=== PATIENT | female | born 1955 | race Caucasian/White ===

== ENCOUNTER 2020-08-07 06:47 | Outpatient (REF) | payer MEDICARE, SELFPAY ==
[2020-08-07 12:03] LABS: Alanine Aminotransferase 23 U/L (0-31); Albumin Level 4.5 g/dL (3.5-5.0); Alkaline Phosphatase 96 U/L (39-117); Anion Gap 15 (12-20); Aspartate Amino Transferase 17 U/L (5-31); Blood Urea Nitrogen 10 mg/dL (9-16); Calcium 9.1 mg/dL (8.4-10.2); Carbon Dioxide 30 mmol/L (22-29); Chloride 100 mmol/L (96-108); Cholesterol 196 mg/dL; Estimated Glomerular Filt Rate > 60; Glucose Fasting 87 mg/dL (60-99); HDL Cholesterol 54 mg/dL; LDL Cholesterol Calculated 114 mg/dl; Potassium 3.8 mmol/L (3.3-5.1); Sodium 141 mmol/L (135-145); Total Protein 7.1 g/dL (6.5-8.0); Triglycerides 144 mg/dL
[2020-08-07 12:24] LABS: Thyroid Stimulating Hormone 3.05 uIU/mL (0.32-4.0); Vitamin D 25-OH Total 50.6 ng/mL (>30)
== END 2020-08-07 06:48 | disposition home or self-care (01) ==
LOC: HO.HMGCLDS 06:47
PROVIDERS: PCP Internal Medicine; Visit Provider Internal Medicine
DX: E03.9 Hypothyroidism, unspecified (principal); E78.00 Pure hypercholesterolemia, unspecified; I10 Essential (primary) hypertension; M85.88 Other specified disorders of bone density and structure, other site; Z78.0 Asymptomatic menopausal state
CPT/HCPCS: 36415; 80053; 80061; 82306; 84439; 84443

== ENCOUNTER 2020-11-07 07:12 | Outpatient (REF) | payer MEDICARE, SELFPAY ==
[2020-11-07 12:20] LABS: Anion Gap 15 (12-20); Aspartate Amino Transferase 17 U/L (5-31); Blood Urea Nitrogen 10 mg/dL (9-16); Calcium 9.4 mg/dL (8.4-10.2); Carbon Dioxide 30 mmol/L (22-29); Chloride 99 mmol/L (96-108); Cholesterol 185 mg/dL; Estimated Glomerular Filt Rate > 60; Glucose Fasting 92 mg/dL (60-99); HDL Cholesterol 54 mg/dL; LDL Cholesterol Calculated 106 mg/dl; Potassium 3.9 mmol/L (3.3-5.1); Sodium 140 mmol/L (135-145); Triglycerides 129 mg/dL
[2020-11-07 12:23] LABS: Free T4 (Free Thyroxine) 1.28 ng/dL (0.71-1.85)
== END 2020-11-07 07:13 | disposition home or self-care (01) ==
LOC: HO.HMGCLDS 07:12
PROVIDERS: PCP Internal Medicine; Visit Provider Internal Medicine
DX: M85.88 Other specified disorders of bone density and structure, other site (principal); E78.5 Hyperlipidemia, unspecified; E03.9 Hypothyroidism, unspecified; I10 Essential (primary) hypertension; Z78.0 Asymptomatic menopausal state
CPT/HCPCS: 36415; 80048; 80061; 82306; 84439; 84443; 84450

== ENCOUNTER 2021-02-13 06:48 | Outpatient (REF) | payer MEDICARE, SELFPAY ==
[2021-02-13 11:34] LABS: MANUAL DIFF FLAG NO
[2021-02-13 11:43] LABS: Basophils Absolute Auto 0.1 X10*3/uL (0.0-0.2); Basophils Percent Auto 0.9 % (0-2); Eosinophils Absolute Auto 0.2 X10*3/uL (0.0-0.4); Eosinophils Percent Auto 1.9 % (0-4); Hematocrit 44.5 % (37-47); Hemoglobin 15.1 g/dl (12.0-16.0); Imm Gran Abs Auto 0.03 X10*3/uL (0.00-0.03); Imm Gran Pct Auto 0.3 % (0.0-0.4); Lymphocytes Absolute Auto 1.8 X10*3/uL (1.2-4.9); Lymphocytes Percent Auto 19.8 % (20-40); Mean Corpuscular HGB Conc 33.9 g/dl (31.0-35.0); Mean Corpuscular Hemoglobin 29.7 pg (27.0-33.0); Mean Corpuscular Volume 87.4 fL (80-98); Mean Platelet Volume 10.2 fL (9.4-12.3); Monocytes Absolute Auto 0.7 X10*3/uL (0.1-1.2); Monocytes Percent Auto 7.2 % (2-11); Neutrophils Absolute Auto 6.4 X10*3/uL (2.0-8.3); Neutrophils Percent Auto 69.9 % (45-73); Platelet Count 321 X10*3/uL (160-400); Red Blood Count 5.09 X10*6/uL (4.20-5.50); Red Cell Distribution Width 12.8 % (11.0-16.0); White Blood Count 9.1 X10*3/uL (4.8-10.8)
[2021-02-13 12:26] LABS: Free T4 (Free Thyroxine) 1.23 ng/dL (0.71-1.85); Thyroid Stimulating Hormone 2.95 uIU/mL (0.32-4.0); Vitamin D 25-OH Total 52.8 ng/mL (>30)
[2021-02-13 12:32] LABS: Alanine Aminotransferase 15 U/L (0-31); Anion Gap 17 (12-20); Aspartate Amino Transferase 16 U/L (5-31); Blood Urea Nitrogen 8 mg/dL (9-16); Calcium 9.3 mg/dL (8.4-10.2); Carbon Dioxide 25 mmol/L (22-29); Chloride 101 mmol/L (96-108); Cholesterol 172 mg/dL; Estimated Glomerular Filt Rate > 60; Glucose Fasting 103 mg/dL (60-99); HDL Cholesterol 43 mg/dL; LDL Cholesterol Calculated 102 mg/dl; Potassium 3.6 mmol/L (3.3-5.1); Sodium 139 mmol/L (135-145); Triglycerides 137 mg/dL
== END 2021-02-13 06:49 | disposition home or self-care (01) ==
LOC: HO.HMGCLDS 06:48
PROVIDERS: PCP Internal Medicine; Visit Provider Internal Medicine
DX: E03.9 Hypothyroidism, unspecified (principal); E78.5 Hyperlipidemia, unspecified; I10 Essential (primary) hypertension; M85.88 Other specified disorders of bone density and structure, other site; Z78.0 Asymptomatic menopausal state; D12.6 Benign neoplasm of colon, unspecified; E78.00 Pure hypercholesterolemia, unspecified
CPT/HCPCS: 36415; 80048; 80061; 82306; 84439; 84443; 84450; 84460; 85025

== ENCOUNTER 2021-06-27 13:49 | Outpatient (REF) | payer MEDICARE, SELFPAY ==
--- NOTE | ~2021-06-27 | US_ITS ---
EXAMINATION: US PELVIS CLINICAL INFORMATION: Postmenopausal bleeding COMPARISON: None TECHNIQUE: Ultrasound of the pelvis is performed using both transabdominal and transvaginal transducers along with Doppler. Transvaginal imaging is performed due to inadequate visualization transabdominally. FINDINGS: The uterus is anteverted and measures 6.2 x 2.9 x 3.5 cm in dimension. No focal uterine lesion is seen. The endometrium is thickened and heterogeneous. Endometrial thickness measures up to 2 cm. There are nabothian cysts in the cervix. The right ovary is not seen. The left ovary is enlarged and measures 5.8 x 3.9 x 4.1 cm. There is a 5.4 x 3.6 x 8.5 cm simple left ovarian cyst. There is no fluid in the pelvis. US/US pelvic and transvaginal IMPRESSION: Abnormally thickened endometrium for a postmenopausal patient measuring 2 cm. 5.4 x 3.6 x 3.5 cm simple left ovarian cyst. Neoplastic process should be considered. [employer] consultation recommended. The right ovary is not seen. Findings will be communicated by the [place] work flow printer slotter helper Noa Meier.
== END 2021-06-27 13:50 | disposition home or self-care (01) ==
LOC: HO.HMGCX 13:49
PROVIDERS: Visit Provider Internal Medicine
DX: N95.0 Postmenopausal bleeding (principal)
CPT/HCPCS: 76830; 76856

== ENCOUNTER → 2021-07-17 08:03 | Outpatient (BNVA) | payer MEDICARE, SELFPAY | PROVIDERS: PCP Internal Medicine; Visit Provider Obstetrics & Gynecology | DX: N95.0 Postmenopausal bleeding (principal); N83.292 Other ovarian cyst, left side | CPT/HCPCS: 99202 ==

== ENCOUNTER 2021-07-27 11:41 | Day surgery (SDC) | payer MEDICARE, SELFPAY ==
[2021-07-19 05:31] LABS: CA-125 28 U/mL (<35)
--- NOTE | 2021-07-26 11:57 | HO.ANESPROP2 ---
Documented by User: Moni Maki NP 07/26/21 11:58 HPI - Anesthesia Eval Consult details Narrative: 65yo F for D&C Hysteroscopy,possible polypectomy, possible myomectomy PMFSH Active Problems Active Problems: All Active Problems (Updated 07/17/21 @ 08:11 by Leno Ventura MD) Ovarian cyst (Acute) Postmenopausal bleeding (Acute) Dermatitis (Acute) Menopause (Acute) Tubular adenoma of colon (Acute) Osteopenia of lumbar spine (Acute) Hyperlipidemia (Acute) Hypothyroidism (Acute) Hypertension (Acute) Past Medical History Medical History Hyperlipidemia Hypertension Hypothyroidism Menopause Osteoarthritis, knee Osteopenia of lumbar spine Postmenopausal bleeding Tubular adenoma of colon Family History Family History Father No problems noted. Mother Diabetes mellitus Surgical History Surgical History H/O arthroscopic knee surgery H/O arthroscopy of left knee H/O arthroscopy of right knee H/O blepharoplasty History of total knee arthroplasty Social History Social History Housing: House Alcohol intake: never Patient Tobacco Use Status: Never used Tobacco Use of substances other than those prescribed or required for medical reasons: No Are you DNR?: No Advance Directives: No Advance Directives Information Provided: Yes Current occupational status: retired Meds Allergies Allergy/AdvReac Type Severity Reaction Status Date / Time No Known Allergies Allergy Verified 07/17/21 08:08 [No Known Allergies*] Home Medications Medication Instructions Recorded Confirmed Last Taken Type biotin 1 mg capsule 1 mg PO DAILY 03/14/20 06/28/21 Unknown History cholecalciferol (vitamin D3) 50 50 mcg PO DAILY 03/14/20 06/28/21 Unknown History mcg (2,000 unit) capsule flu vacc [id number](65yr up)-PF 240 ml IM 06/14/20 06/28/21 Unknown History mcg/0.7 mL intramuscular syringe ascorbate calcium (vitamin C) 500 500 mg PO DAILY 08/16/20 06/28/21 Unknown History mg tablet multivitamin 1 tab PO DAILY 08/16/20 06/28/21 Unknown History omega-3 fatty acids 1,000 mg 1,000 mg PO DAILY 08/16/20 06/28/21 Unknown History capsule (Fish Oil Concentrate) levothyroxine 88 mcg tablet 88 mcg PO QAM tab 06/27/21 06/28/21 Unknown History Exam Exam Date and Time: July 26, 2021 1157 Pertinent Lab Results Pertinent Lab Results: Laboratory Tests 07/17/21 09:42 CA 125 Antigen 28 Laboratory Tests 02/13/21 02/13/21 06:58 06:58 WBC 9.1 Hgb 15.1 Hct 44.5 Plt Count 321 Sodium 139 Potassium 3.6 Chloride 101 Carbon Dioxide 25 BUN 8 L Creatinine 0.70 Assessment and Plan Assessment Anesthesia Assessment: Chart Reviewed Documented by User: Lisette Morocho MD 07/27/21 13:00 [facility], [facility] Past Medical History Medical History Hyperlipidemia Hypertension Hypothyroidism Menopause Osteoarthritis, knee Osteopenia of lumbar spine Postmenopausal bleeding Tubular adenoma of colon Family History Family History Father No problems noted. Mother Diabetes mellitus Family history of problems with anesthesia: No Surgical History Surgical History H/O arthroscopic knee surgery H/O arthroscopy of left knee H/O arthroscopy of right knee H/O blepharoplasty History of total knee arthroplasty History of Problems with Anesthesia: No Social History Social History Housing: House Alcohol intake: never Patient Tobacco Use Status: Never used Tobacco Use of substances other than those prescribed or required for medical reasons: No Are you DNR?: No Advance Directives: No Advance Directives Information Provided: Yes Current occupational status: retired Meds Allergies Allergy/AdvReac Type Severity Reaction Status Date / Time No Known Allergies Allergy Verified 07/17/21 08:08 [No Known Allergies*] Home Medications Medication Instructions Recorded Confirmed Last Taken Type biotin 1 mg capsule 1 mg PO DAILY 03/14/20 06/28/21 Unknown History cholecalciferol (vitamin D3) 50 50 mcg PO DAILY 03/14/20 06/28/21 Unknown History mcg (2,000 unit) capsule flu vacc [id number](65yr up)-PF 240 ml IM 06/14/20 06/28/21 Unknown History mcg/0.7 mL intramuscular syringe ascorbate calcium (vitamin C) 500 500 mg PO DAILY 08/16/20 06/28/21 Unknown History mg tablet multivitamin 1 tab PO DAILY 08/16/20 06/28/21 Unknown History omega-3 fatty acids 1,000 mg 1,000 mg PO DAILY 08/16/20 06/28/21 Unknown History capsule (Fish Oil Concentrate) levothyroxine 88 mcg tablet 88 mcg PO QAM tab 06/27/21 06/28/21 Unknown History Exam Airway Mallampati Class: II TM Dist: >3cm Neck ROM: Full Assessment and Plan Assessment Anesthesia Assessment: Anesthesia Plan Discussed Final Anesthetic Review Family History of Problems with Anesthesia: No History of Problems with Anesthesia: No NPO: Yes ASA Class: II Final Preanesthetic Review: No Changes in Pt Med Stat, Meds/Allgs Chart Reviewed, Consent Obtained/Reviewed and Anes Risks/Benef Reviewed Patient Risk: Intermediate Procedure Risk: Low Anesthetic Plan Anesthetic Plan: GA Disposition: Standard PACU
[2021-07-27] VITALS (7 sets, daily range): BP systolic 137–171; BP diastolic 63–88; PULSE 70–78; RESP 16–20; TEMP 36.8–37.2; O2SAT 96–99; BMI 33.6
--- NOTE | 2021-07-27 12:20 | MHC.SHP ---
Pre-Procedural Eval Section A Date of Service: 07/27/21 The patient is an INPATIENT: No Changes since office visit: No Cold of Flu in the past 2 weeks, No New Medical Problems, No Changes in Medication and No Patient answered all questions The History & Physical has been completed within 30 days and I have reviewed it.: Yes Section B Chief Complaint: bleeding Allergies: Allergies Allergy/AdvReac Type Severity Reaction Status Date / Time No Known Allergies Allergy Verified 07/17/21 08:08 [No Known Allergies*] Plan Diagnosis/Plan: Unchanged I have reviewed the history and physical and performed a pertinent physical examination on my patient. No changes have occurred unless specified.
[2021-07-27] MEDS: Lactated Ringers 1,000 ML 100 ML IVCONT (12:40)
--- NOTE | 2021-07-27 14:04 | P.BOP_ITS ---
Brief Operative Note Date of Service: 07/27/21 Pre-op diagnosis: Postmenopausal bleeding and 2 cm endometrial thickness by ultrasound Post-op diagnosis: same (Thickened hypervascular endometrial tissues) Procedure: Hysteroscopy D&C Surgeon: Leno Ventura MD Anesthesia: MAC Was an High Density Finishing Operator used for this Procedure?: No Estimated blood loss (mL): 0 Pathology: other (Endometrial Scrapping.) Condition: stable Disposition: PACU
--- NOTE | 2021-07-27 14:05 | W.PM.OPN ---
Operative Note Operative Note Date of Service: 07/27/21 Narrative: Preop Diagnosis: Post Menopausal bleeding Operation: Diagnostic Hysteroscopy, Dilataion & Curettage Post Op Diagnosis: The same plus thickened hypervascular looking endometrial tissues QBL: Minimal Anesthesia: MAC Surgeon: Leno Ventura MD Slot Operations Director: None Complication: None Pathology: Endometrial Scrapings Procedure: The patient was put in the dorsal lithotomy position, scrubbed, and draped in the usual manner. A sterile speculum was inserted in the patient's vagina. The anterior lip of the cervix was grasped with a single tooth tenaculum. The cervix was dilated up to 5 mm, then the scope was inserted in the patient's uterus. Inspection revealed thickened hypervascular endometrial tissues. The Myosure Reach device was used; endometrial scrapings was carried on with moderate amount of tissues retrieved. At the end of the procedure, all instruments were taken out of the patient uterine and vaginal cavity. The single tooth tenaculum was removed and homeostasis was assured using pressure,. The patient tolerated the procedure well and was transferred to the PACU in a stable condition.
== END 2021-07-27 15:30 | disposition home or self-care (01) ==
PROVIDERS: PCP Internal Medicine; Visit Provider Obstetrics & Gynecology
PROC: 0UDB8ZZ Extraction of Endometrium, Via Natural or Artificial Opening Endoscopic (ICD-10-PCS; CPT 58558; principal; 2021-07-27 13:30)
DX: N95.0 Postmenopausal bleeding (principal); C54.1 Malignant neoplasm of endometrium; N83.209 Unspecified ovarian cyst, unspecified side
CPT/HCPCS: 58558; 36415; 86304; 88305; 88341; 88342; J1100; J2250; J2405; J3010

== ENCOUNTER → 2021-08-02 15:12 | Outpatient (BNVA) | payer MEDICARE, SELFPAY | PROVIDERS: Visit Provider Obstetrics & Gynecology | DX: C54.1 Malignant neoplasm of endometrium (principal); Z98.890 Other specified postprocedural states | CPT/HCPCS: 99212 ==

== ENCOUNTER 2021-08-20 06:35 | Outpatient (REF) | payer MEDICARE, SELFPAY ==
[2021-08-20 12:23] LABS: Alanine Aminotransferase 22 U/L (0-31); Anion Gap 16 (12-20); Aspartate Amino Transferase 16 U/L (5-31); Blood Urea Nitrogen 10 mg/dL (9-16); Calcium 9.2 mg/dL (8.4-10.2); Carbon Dioxide 29 mmol/L (22-29); Chloride 96 mmol/L (96-108); Cholesterol 184 mg/dL; Estimated Glomerular Filt Rate > 60; Glucose Fasting 107 mg/dL (60-99); HDL Cholesterol 50 mg/dL; LDL Cholesterol Calculated 113 mg/dl; Potassium 3.5 mmol/L (3.3-5.1); Sodium 137 mmol/L (135-145); Triglycerides 105 mg/dL
[2021-08-20 12:28] LABS: Free T4 (Free Thyroxine) 1.51 ng/dL (0.71-1.85); Thyroid Stimulating Hormone 1.91 uIU/mL (0.32-4.0); Vitamin D 25-OH Total 52.5 ng/mL (>30)
== END 2021-08-20 06:36 | disposition home or self-care (01) ==
LOC: HO.HMGCLDS 06:35
PROVIDERS: Visit Provider Internal Medicine
DX: E03.9 Hypothyroidism, unspecified (principal); E78.00 Pure hypercholesterolemia, unspecified; I10 Essential (primary) hypertension; Z78.0 Asymptomatic menopausal state
CPT/HCPCS: 36415; 80048; 80061; 82306; 84439; 84443; 84450; 84460

== ENCOUNTER 2022-06-17 06:39 | Outpatient (REF) | payer MEDICARE, SELFPAY ==
[2022-06-17 11:20] LABS: MANUAL DIFF FLAG NO
[2022-06-17 11:28] LABS: Basophils Percent Auto 0.6 % (0-2); Eosinophils Absolute Auto 0.2 X10*3/uL (0.0-0.4); Eosinophils Percent Auto 3.7 % (0-4); Hematocrit 37.8 % (37.0-47.0); Hemoglobin 13.2 g/dl (12.0-16.0); Imm Gran Abs Auto 0.01 X10*3/uL (0.00-0.03); Imm Gran Pct Auto 0.2 % (0.0-0.4); Lymphocytes Percent Auto 15.5 % (20-40); Mean Corpuscular HGB Conc 34.9 g/dl (31.0-35.0); Mean Corpuscular Hemoglobin 32.4 pg (27.0-33.0); Mean Corpuscular Volume 92.6 fL (80.0-98.0); Mean Platelet Volume 9.6 fL (9.4-12.3); Monocytes Absolute Auto 0.5 X10*3/uL (0.1-1.2); Monocytes Percent Auto 7.5 % (2-11); Neutrophils Absolute Auto 4.5 x10*3/uL (2.0-8.3); Neutrophils Percent Auto 72.5 % (45-73); Platelet Count 270 X10*3/uL (160-400); Red Blood Count 4.08 X10*6/uL (4.20-5.50); Red Cell Distribution Width 13.2 % (11.0-16.0); White Blood Count 6.3 X10*3/uL (4.8-10.8)
[2022-06-17 12:00] LABS: Alanine Aminotransferase 25 U/L (0-31); Anion Gap 16 (12-20); Aspartate Amino Transferase 19 U/L (5-31); Blood Urea Nitrogen 14 mg/dL (9-16); Calcium 9.4 mg/dL (8.4-10.2); Carbon Dioxide 30 mmol/L (22-29); Chloride 97 mmol/L (96-108); Cholesterol 185 mg/dL; Estimated Glomerular Filt Rate > 60; Glucose Fasting 105 mg/dL (60-99); HDL Cholesterol 50 mg/dL; LDL Cholesterol Calculated 107 mg/dl; Sodium 140 mmol/L (135-145); Triglycerides 141 mg/dL
[2022-06-17 12:31] LABS: Free T4 (Free Thyroxine) 1.26 ng/dL (0.71-1.85); Thyroid Stimulating Hormone 1.91 uIU/mL (0.32-4.0); Vitamin D 25-OH Total 38.4 ng/mL (>30)
== END 2022-06-17 06:40 | disposition home or self-care (01) ==
LOC: HO.HMGCLDS 06:39
PROVIDERS: PCP Internal Medicine; Visit Provider Internal Medicine
DX: E03.9 Hypothyroidism, unspecified (principal); E78.00 Pure hypercholesterolemia, unspecified; I10 Essential (primary) hypertension; M85.88 Other specified disorders of bone density and structure, other site; Z78.0 Asymptomatic menopausal state
CPT/HCPCS: 36415; 80048; 80061; 82306; 84439; 84443; 84450; 84460; 85025

== ENCOUNTER 2022-11-19 10:13 | Outpatient (REF) | payer MEDICARE, SELFPAY ==
--- NOTE | ~2022-11-19 | XR_ITS ---
Examination: Lumbar spine. Sacrum/coccyx. CLINICAL INDICATION: Low back pain x6 weeks. COMPARISON: None. TECHNIQUE: Lumbar spine 3 views. Sacrum/coccyx 3 views. FINDINGS: LUMBAR SPINE: There is normal lumbar lordosis. There is grade 1 anterolisthesis L4 over L5 and L5 over S1. There is severe loss of L3 L5-S1 disc height. Bilateral L5 laminectomy suspected. There is moderate hypertrophic facet joint changes at L3-L4, L4-L5 and L5/S1 disc levels. No acute fracture or lytic process seen. SACRUM AND/OR COCCYX: The SI joints are symmetrical and normal. There is no bony abnormality involving the sacrum or coccyx. The presacral soft tissues are normal. XR/XR sacrum coccyx min 2V IMPRESSION: Grade 1 anterolisthesis L4-L5 and L5-S1. Severe degenerative disc changes L5-S1 disc level. No visible acute fracture or dislocation seen in lumbar spine. Suspect bilateral L4 laminectomy or could be positional. No abnormality seen involving the sacrum or coccyx
--- NOTE | ~2022-11-19 | XR_ITS ---
Examination: Lumbar spine. Sacrum/coccyx. CLINICAL INDICATION: Low back pain x6 weeks. COMPARISON: None. TECHNIQUE: Lumbar spine 3 views. Sacrum/coccyx 3 views. FINDINGS: LUMBAR SPINE: There is normal lumbar lordosis. There is grade 1 anterolisthesis L4 over L5 and L5 over S1. There is severe loss of L3 L5-S1 disc height. Bilateral L5 laminectomy suspected. There is moderate hypertrophic facet joint changes at L3-L4, L4-L5 and L5/S1 disc levels. No acute fracture or lytic process seen. SACRUM AND/OR COCCYX: The SI joints are symmetrical and normal. There is no bony abnormality involving the sacrum or coccyx. The presacral soft tissues are normal. XR/XR lumbar spine 2-3V IMPRESSION: Grade 1 anterolisthesis L4-L5 and L5-S1. Severe degenerative disc changes L5-S1 disc level. No visible acute fracture or dislocation seen in lumbar spine. Suspect bilateral L4 laminectomy or could be positional. No abnormality seen involving the sacrum or coccyx
== END 2022-11-19 10:14 | disposition home or self-care (01) ==
LOC: HO.HMGCX 10:13
PROVIDERS: PCP Internal Medicine; Visit Provider Physician Assistant
DX: M54.50 Low back pain, unspecified (principal)
CPT/HCPCS: 72100; 72220

== ENCOUNTER 2022-11-30 07:18 | Outpatient (REF) | payer MEDICARE, SELFPAY ==
[2022-11-30 11:31] LABS: Estimated Average Glucose 103 mg/dL; Hemoglobin A1c % 5.2 %
[2022-11-30 11:36] LABS: Alanine Aminotransferase 17 U/L (0-31); Anion Gap 14 (12-20); Aspartate Amino Transferase 17 U/L (5-31); Blood Urea Nitrogen 11 mg/dL (9-16); Calcium 9.8 mg/dL (8.4-10.2); Carbon Dioxide 31 mmol/L (22-29); Chloride 88 mmol/L (96-108); Cholesterol 184 mg/dL; Estimated Glomerular Filt Rate > 60; Glucose Fasting 105 mg/dL (60-99); HDL Cholesterol 62 mg/dL; LDL Cholesterol Calculated 101 mg/dl; Potassium 2.9 mmol/L (3.3-5.1); Sodium 130 mmol/L (135-145); Triglycerides 109 mg/dL
[2022-11-30 11:54] LABS: Free T4 (Free Thyroxine) 1.48 ng/dL (0.71-1.85); Thyroid Stimulating Hormone 4.32 uIU/mL (0.32-4.0); Vitamin D 25-OH Total 61.5 ng/mL (>30)
== END 2022-11-30 07:19 | disposition home or self-care (01) ==
LOC: HO.HMGCLDS 07:18
PROVIDERS: PCP Internal Medicine; Visit Provider Internal Medicine
DX: E03.9 Hypothyroidism, unspecified (principal); E78.00 Pure hypercholesterolemia, unspecified; I10 Essential (primary) hypertension; M85.88 Other specified disorders of bone density and structure, other site; R73.01 Impaired fasting glucose; Z78.0 Asymptomatic menopausal state
CPT/HCPCS: 36415; 80048; 80061; 82306; 83036; 84439; 84443; 84450; 84460

== ENCOUNTER 2022-12-02 10:50 | Outpatient (REF) | payer MEDICARE, SELFPAY ==
--- NOTE | ~2022-12-02 | MR_ITS ---
EXAMINATION: MR LUMBAR SPINE WITHOUT CONTRAST CLINICAL INFORMATION: Radiculopathy. COMPARISON: Lumbar spine radiographs 11/19/2022. TECHNIQUE: MRI of the lumbar spine was obtained using routine sequences without contrast. FINDINGS: There is grade 1 anterolisthesis of L3 on L4, L4 on L5, and L5 on S1 that appears to be related to facet degenerative changes at each of these levels. There are possible L5 pars interarticularis defects. There are fatty bone marrow signal changes within the lower lumbar spine and sacrum possibly representing a manifestation of post radiation change. There is bone marrow edema involving both sacral ala as well as a horizontal component traversing the S2 segment with apparent buckling of the anterior cortex of the S2 vertebral body and mild associated prevertebral edema. Loss of intervertebral disc height and T2 signal intensity at L5-S1 related to disc degeneration. Disc desiccation visualized at multiple additional levels primarily within the lower lumbar spine. The tip of the conus medullaris is located at L1. No mass effect on the conus. Visualized distal cord signal intensity is normal. At and T12-L1 there is a slightly bulging disc. No canal stenosis. No mass effect on the traversing or foraminal nerve roots. At L1-L2 there is a slightly bulging disc. No canal stenosis. No mass effect on the traversing or foraminal nerve roots. At L2-L3 there is a slightly bulging disc. No canal stenosis. No mass effect on the traversing or foraminal nerve roots. At L3-L4 there is a pseudodisc bulge. Advanced bilateral facet degenerative change. No canal stenosis. Subarticular zone narrowing causes abutment of both traversing L4 nerve roots. No foraminal nerve root compression. At L4-5 there is a pseudodisc bulge. Advanced bilateral facet degenerative change. No canal stenosis. Subarticular zone narrowing causes abutment of both traversing L5 nerve roots. No foraminal nerve root compression. At L5-S1 there is a pseudodisc bulge. Advanced bilateral facet degenerative change. No canal stenosis. No mass effect on the traversing or foraminal nerve roots. Limited visualization of the retroperitoneal anatomy reveals no abnormal finding. Psoas and paraspinal superficial symmetric. MR/MR lumbar spine wo con IMPRESSION: There is bone marrow edema involving both sacral ala as well as a horizontal component traversing the S2 segment. There is apparent buckling of the anterior cortex of the S2 vertebral body and mild associated prevertebral edema. Findings are most consistent with an acute to subacute sacral insufficiency fracture. There is multilevel degenerative spondylosis of the lumbar spine with grade 1 anterolisthesis of L3 on L4, L4 on L5, and L5 on S1. There are possible L5 pars interarticularis defects. No canal stenosis. Subarticular zone narrowing at L3-L4 and L4-L5 causes abutment of both traversing L4 and L5 nerve roots. Otherwise no substantial mass effect on the traversing or foraminal nerve roots elsewhere within the lumbar spine.
== END 2022-12-02 10:51 | disposition home or self-care (01) ==
LOC: HO.MRI 10:50
PROVIDERS: PCP Internal Medicine; Visit Provider Internal Medicine
DX: M54.16 Radiculopathy, lumbar region (principal); M85.88 Other specified disorders of bone density and structure, other site
CPT/HCPCS: 72148

== ENCOUNTER 2022-12-05 08:20 | Outpatient (REF) | payer MEDICARE, SELFPAY ==
[2022-12-05 11:29] LABS: Anion Gap 12 (12-20); Blood Urea Nitrogen 8 mg/dL (9-16); Carbon Dioxide 32 mmol/L (22-29); Chloride 91 mmol/L (96-108); Estimated Glomerular Filt Rate > 60; Glucose Random 103 mg/dL (60-115); Potassium 3.4 mmol/L (3.3-5.1); Sodium 132 mmol/L (135-145)
== END 2022-12-05 08:21 | disposition home or self-care (01) ==
LOC: HO.HMGCLDS 08:20
PROVIDERS: PCP Internal Medicine; Visit Provider Internal Medicine
DX: E87.1 Hypo-osmolality and hyponatremia (principal); E87.6 Hypokalemia
CPT/HCPCS: 36415; 80048

== ENCOUNTER 2023-01-02 10:15 | Outpatient (AMB) | payer MEDICARE, SELFPAY ==
[2023-01-02 10:18] VITALS: BP 128/70; PULSE 89; O2SAT 99; BMI 31.7
--- NOTE | 2023-01-02 10:18 | A.OFFPC_ITS ---
Vital Signs 01/02/23 10:18 Height 5 ft 3 in Weight 179 lb BMI 31.7 BP 128/70 Blood Pressure Location Rt brachial Position Sitting Pulse 89 Pulse Source Pulse Oximeter Pulse Oximetry (%) 99 Oxygen Delivery Method Room Air Intake Visit Reasons: follow up on back pain/mri Intake Note: Pt is here today for a follow up visit on back pain and MRI. Allergies No Known Allergies [No Known Allergies*] Allergy (Verified 06/17/23 10:16) Medication List - Last Reconciled 06/23/23 by Shantell Kilpatrick MD albuterol sulfate 90 mcg/actuation 2 puffs inhalation Q6H PRN atorvastatin 10 mg PO DAILY cholecalciferol (vitamin D3) 50 mcg PO DAILY cyanocobalamin (vitamin B-12) 100 mcg PO DAILY hydrochlorothiazide 25 mg PO QAM levothyroxine 100 mcg PO .every other day 90 days levothyroxine 88 mcg PO .QOD lisinopril 5 mg PO DAILY multivitamin 1 tab PO DAILY Tobacco use date assessed: 01/02/23 Last assessed Fall Risk: 01/02/23 Dental Screening Dental Screen Date: 01/02/23 Did you have a dental visit in the last 12 months?: Yes Did you have a dental problem in the last 6 months where you did not have access to dental care?: No Was dental information given to patient?: No HPI follow up on back pain/mri HPI Details 67-year-old it lady with hypothyroidism, dyslipidemia, and hypertension, here today for follow-up on results of her lumbar sacral spine MRI. She complains of acute back pain which is mostly on her lower back and occasionally radiating down right leg , which began about 3 months ago, with no precipitating factors . X-ray showed degenerative disc disease with spondylolisthesis, and lumbar spine MRI ordered, showed possible sacral insufficiency fracture. Denies any urine or bowel incontinence, no leg weakness, no cauda equina symptoms. 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 Mother Diabetes mellitus Social History Housing: House Alcohol intake: never Comment: cramping Patient Tobacco Use Status: Never used Tobacco e-Cigarette/Vaping Use: Never Used Current occupational status: retired Cognitive needs: No Hearing needs: No Vision needs: No Questionnaire Thrive Questionnaire Date Thrive assessed: 11/29/22 AUDIT C Alcohol Use Questionnaire (AUDIT-C) 1. How often do you have a drink containing alcohol?: Never 3. How often do you have six or more drinks on one occasion?: Never Total Score: 0 Score Reviewed/Action Taken: Yes HUSSAIN-7 AMB Questionnaire HUSSAIN-7 Date HUSSAIN - 7 assessed: 11/29/22 Source: Developed by Drs. Jay Mann, Stefanie Hawkins, Delonte Nichols and colleagues, with an educational porfirio from [employer]. Review of Systems Const Denies fever(s), Denies headache(s) and Denies weakness ENT Denies dizziness, Denies headache(s) and Denies sore throat Card Denies chest pain, Denies lightheadedness, Denies palpitations and Denies dyspnea Resp Denies chest congestion, Denies cough, Denies dyspnea and Denies wheezing GI Denies abdominal pain, Denies change in bowel habits and Denies heartburn Denies urinary frequency, Denies dysuria and Denies urinary urgency Musc Reports no additional complaints Skin/Breast Denies lesions and Denies rash Neuro Denies dizziness, Denies headache(s) and Denies weakness Endo Denies polydipsia, Denies polyuria and Denies palpitations Jefferson/Lymph Denies easy bruising Aller/Immun Denies seasonal rhinorrhea and Denies wheezing Physical exam (Primary Care) Vital Signs: Last Vital Signs Pulse 89 01/02/23 10:18 BP 128/70 01/02/23 10:18 Pulse Ox 99 01/02/23 10:18 Oxygen Delivery Method Room Air 01/02/23 10:18 BMI result Body Mass Index 31.7 Tobacco/Smoking Status: Tobacco use Status Tobacco use date assessed 01/02/23 01/02/23 10:20 Patient Tobacco Use Status Never used Tobacco 01/02/23 10:20 e-Cigarette/Vaping Use Never Used 01/02/23 10:20 Thrive Assessment: Date of Thrive Assessment Date Thrive assessed 11/29/22 01/02/23 10:20 Const General: comfortable, no acute distress and alert Orientation/consciousness: patient oriented x3 Neck Neck: Yes full ROM, Yes no lymphadenopathy and Yes supple Resp Auscultation: clear to auscultation bilaterally Cardio Other: S1-S2 present regular rate and rhythm GI Palpation (GI): Soft to palpation, nontender, no guarding and no masses Back/Spine/Pelvis Other: Tenderness over paraspinal muscles in lumbar area Thoracic/Lumbar Spine: straight leg raise negative bilaterally and pain with thoraco-lumbar ROM Skin General skin exam: no rashes or lesions noted Neuro General: patient oriented x3, gait normal, moves all extremities, Normal light touch and pain sensation, no focal motor deficits and CN's II-XI intact bilaterally Extrem General: Yes full ROM, Yes no joint enlargement, Yes no pedal edema and Yes no calf tenderness Assessment and Plan Assessment & Plan (1) Sacral fracture: Code(s): S32.10XA - Unspecified fracture of sacrum, initial encounter for closed fracture Plan: Neuro spine referral ordered for further evaluation management (2) Lumbar radiculopathy, acute: Code(s): M54.16 - Radiculopathy, lumbar region Plan: Referral to neuro spine surgery for further evaluation manage (3) Hyperlipidemia: Code(s): E78.5 - Hyperlipidemia, unspecified Qualifiers: Hyperlipidemia type: pure hypercholesterolemia Qualified Code(s): E7 8.00 - Pure hypercholesterolemia, unspecified Plan: Currently on atorvastatin 10 mg daily, fasting lipid panel ordered (4) Hypothyroidism: Code(s): E03.9 - Hypothyroidism, unspecified Qualifiers: Hypothyroidism type: acquired Qualified Code(s): E03.9 - Hypothyroidism, unspecified Plan: On levothyroxine 100 mcg every other day , will check TSH and free T4 (5) Hypertension: Code(s): I10 - Essential (primary) hypertension Qualifiers: Hypertension type: essential hypertension Qualified Code(s): I10 - Essential (primary) hypertension Plan: Blood pressure mildly elevated on today's visit, likely due to pain. Continue with lisinopril 5 mg daily. Reinforced importance of following a low sodium d iet, getting regular exercise, and lowering stress levels. (6) Osteopenia of multiple sites: Code(s): M85.89 - Other specified disorders of bone density and structure, multiple sites Plan: Ordered a repeat bone density scan and vitamin-D level Orders: Orders XR DEXA axial skeleton 01/02/23 M85.89 - Other specified disorders of bone density and structure, multiple sites, S32.10XA - Unspecified fracture of sacrum, initial encounter for closed fracture Lipid Panel 02/10/23 M85.89 - Other specified disorders of bone density and structure, multiple sites, Z78.0 - Asymptomatic menopausal state, E78.5 - Hyperlipidemia, unspecified, E03.9 - Hypothyroidism, unspecified, I10 - Essential (primary) hypertension Vitamin D 25-OH Total 02/10/23 M85.89 - Other specified disorders of bone density and structure, multiple sites, Z78.0 - Asymptomatic menopausal state, E78.5 - Hyperlipidemia, unspecified, E03.9 - Hypothyroidism, unspecified, I10 - Essential (primary) hypertension Aspartate Amino Transferase 02/10/23 M85.89 - Other specified disorders of bone density and structure, multiple sites, Z78.0 - Asymptomatic menopausal state, E78.5 - Hyperlipidemia, unspecified, E03.9 - Hypothyroidism, unspecified, I10 - Essential (primary) hypertension Basic Metabolic Panel Fasting 02/10/23 M85.89 - Other specified disorders of bone density and structure, multiple sites, Z78.0 - Asymptomatic menopausal state, E78.5 - Hyperlipidemia, unspecified, E03.9 - Hypothyroidism, unspecified, I10 - Essential (primary) hypertension Thyroid Stimulating Hormone 02/10/23 M85.89 - Other specified disorders of bone density and structure, multiple sites, Z78.0 - Asymptomatic menopausal state, E78.5 - Hyperlipidemia, unspecified, E03.9 - Hypothyroidism, unspecified, I10 - Essential (primary) hypertension Free T4 (Free Thyroxine) 02/10/23 E03.9 - Hypothyroidism, unspecified, M85.89 - Other specified disorders of bone density and structure, multiple sites, Z78.0 - Asymptomatic menopausal state, E78.5 - Hyperlipidemia, unspecified, I10 - Essential (primary) hypertension Alanine Aminotransferase 02/10/23 M85.89 - Other specified disorders of bone density and structure, multiple sites, Z78.0 - Asymptomatic menopausal state, E78.5 - Hyperlipidemia, unspecified, E03.9 - Hypothyroidism, unspecified, I10 - Essential (primary) hypertension Coding Level of Care Code Est Pt Level 4 (80369) Diagnoses Sacral fracture S32.10XA Lumbar radiculopathy, acute M54.16 Pure hypercholesterolemia E78.00 Hyperlipidemia type: pure hypercholesterolemia Acquired hypothyroidism E03.9 Hypothyroidism type: acquired Essential hypertension I10 Hypertension type: essential hypertension Osteopenia of multiple sites M85.89
== END 2023-01-02 14:08 | disposition home or self-care (01) ==
PROVIDERS: PCP Internal Medicine; Visit Provider Internal Medicine
DX: S32.10XA Unspecified fracture of sacrum, initial encounter for closed fracture (principal); M54.16 Radiculopathy, lumbar region; E78.00 Pure hypercholesterolemia, unspecified; E03.9 Hypothyroidism, unspecified; I10 Essential (primary) hypertension; M85.89 Other specified disorders of bone density and structure, multiple sites
CPT/HCPCS: 99214

== ENCOUNTER 2023-01-24 10:45 | Outpatient (AMB) | payer MEDICARE, SELFPAY ==
--- NOTE | 2023-01-24 10:54 | HO.SPINEOV ---
Intake Intake Visit Reasons: Spinal stenosis Intake Note: Mrs. Hartmann is here today c/o low back pain. MRI done @ [facility] [place]. 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 There is no specific event that started it and she cannot recall lifting anything etc.. The pain was centered around her low back and would radiate down into her right leg. She ultimately underwent trial of medication including Tylenol and tramadol. She had an MRI as well as an x-ray, showing degenerative disc disease. There is also mention of possible sacral insufficiency fracture. She is referred to us for evaluation. Over the last month or so she tells me that with physical therapy and some tincture of time she is actually doing quite better and at this point really does not have much in the way of disabling pain or discomfort. Denies any cauda equina symptoms. PMH: History of hypothyroidism, hypertension, cholesterol, she had endometrial cancer with XRT done last year as well as hysterectomy, knee replacement, eye surgery Social hx: She does not smoke Medications: Hydrochlorothiazide, Lipitor, levothyroxine, Tylenol, tramadol Allergies: None Physical exam: Patient is awake alert oriented intact no acute distress here with her today. She is able stand up out of a chair and walk, strength and reflexes are intact Imaging review: Lumbar MRI done at [facility] shows evidence of spondylolisthesis at L5-S1. There is degenerative disc collapse. Possible pars defect. Her x-ray show that there appears to be anterior bridging along the vertebral bodies which suggests auto fusion. She has a grade 1 spondylolisthesis at L4-5 with bilateral foraminal narrowing. She has the very subtle grade 1 spondylolisthesis at L3-4 as well. The radiologist also suggested may be evidence of sacral insufficiency fractures. Impression: 67-year-old female with spontaneous onset of back pain a few months back which seems to be mostly resolved. She is neurologically intact. She has incidental findings of degenerative disc disease with spondylolisthesis as outlined above. I do not know what to make of the sacral insufficiency fractures. This may be an incidental finding. She has no symptoms of it. At this point there is obviously no surgical intervention if her pain is going away. We discussed the natural history of degenerative disc disease, spondylolisthesis etc.. She continues to complain of chronic pain we could certainly see her back in consider surgical intervention. I also discussed other nonsurgical options such as cortisone shots in lieu of surgery down the road. Thank you for this referral. Thank you for allowing us to care for your patient. The total time spent with this visit with this patient was 45 minutes reviewing history, physical exam, lumbar imaging review, and implementation of treatment plan or further diagnostic testing Raúl Gonzalez MD,PhD [facility] Coding Level of Care Code New Pt Level 4 (02981) Diagnoses Lumbar radiculopathy, acute M54.16
== END 2023-01-24 12:46 | disposition home or self-care (01) ==
PROVIDERS: PCP Internal Medicine; Referring Provider Internal Medicine; Visit Provider Physician Assistant
DX: M54.16 Radiculopathy, lumbar region (principal)
CPT/HCPCS: 99204

== ENCOUNTER → 2023-01-24 10:45 | Outpatient (BNVA) | payer MEDICARE, SELFPAY | PROVIDERS: PCP Internal Medicine; Visit Provider Physician Assistant | DX: M54.16 Radiculopathy, lumbar region (principal); M85.89 Other specified disorders of bone density and structure, multiple sites; Z78.0 Asymptomatic menopausal state | CPT/HCPCS: 99202 ==

== ENCOUNTER 2023-01-28 08:00 | Outpatient (RCR) | payer MEDICARE, SELFPAY ==
--- NOTE | 2022-12-24 08:59 | MHC.PT.EP ---
[facility] [place] Office [place] Office [place] Office [address] Fito Khan [address] [phone] F: [phone] F: [phone] F: [phone] F: [phone] Physical Therapy Plan of Care Date of Evaluation: Date of Surgery: n/a Diagnosis: lumbago with sciatica Assessment: Patient is a 67 year old female presenting to PT with complaints of pain in her low back. Pt reports onset of pain began October 2022 due to insidious onset. She presents today with impairments in pain, ROM, core strength, hip strength, posture. 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 Pt expresses detention goal of reducing pain, and is motivated to work towards this in PT. Clinical presentation today is most consistent with signs and sx associated with low back pain and pt will benefit from skilled PT 2 week x 4 weeks to address the following problems and impairments noted upon evaluation: pain, ROM, core strength, hip strength, posture. These problems limit the patient with the following functional activities: ambulating, standing, ADLs, lifting. The prescribed treatment plan of care is medically necessary. Co-morbidities of hx uterine cancer which she finished chemo and radiation April 2022, osteoporosis, HTN were identified and taken into considerations of plan of care. Pt was educated on HEP, role of PT, prognosis, POC. Frequency and Duration: The patient will be seen 2 x week x 4 weeks Short Term Goals: Pt will demonstrate improved hip MMT strength by 1/3 grade in 2 weeks for improved lumbopelvic stability. Pt will demonstrate improved PPT with good core recruitment with min to no cues in 2 weeks for improved core strength. Pt will report less incidence of radiation of pain down her legs in 2 weeks. Assistant Goals: Pt will demonstrate improved Ezequiel score by 10% in 4 weeks for improved functional mobility. Pt will demonstrate reports of improved ability to ambulate with min to no pain and need of rest breaks in 4 weeks for improved access to the community. Pt will demonstrate ability to stand long enough to prep meal with min to no pain in 4 weeks for improved tolerance to ADLs. Treatment Plan: Modalities to reduce pain, spasms and effusion. Manual therapy to restore motion and function. Therapeutic exercise to improve strength and flexibility. Neuromuscular re-education for posture and balance. Therapeutic activities to return to functional activities of daily living. Electronically signed by: Dayan Mccormick, PT, DPT, ATC Please sign and return to therapist. Thank you for your referral.
--- NOTE | 2023-01-28 08:43 | MHC.PT.DC ---
[facility] [place] Office [place] Office [place] Office [address] Fito Khan [address] [phone] F: [phone] F: [phone] F: [phone] F: [phone] Physical Therapy Discharge Report Diagnosis: lumbago with sciatica Date of Surgery: n/a Date of Evaluation: 12/24/22 Date of Discharge: 01/28/23 Treatments to Date: 10 Cancellations to Date: 0 No Shows to Date: 0 Discharge Status: Achieved Goals Improved Function Independent with HEP Discharge Summary: 01/28/2023: Pt has made good progress since start of care. Her pain is much improved and she has less functional limitations. She is independent and compliant with her HEP. At this point max benefits of PT have been provided and skilled PT is no longer indicated. Pt in agreement with d/c today. Electronically signed by: Dayan Mccormick, PT, DPT, ATC Please sign and return to therapist. Thank you for your referral.
== END 2023-01-28 08:43 | disposition home or self-care (01) ==
LOC: HO.PTCHIC 08:00
PROVIDERS: PCP Internal Medicine; Visit Provider Physician Assistant
DX: M54.40 Lumbago with sciatica, unspecified side (principal)
CPT/HCPCS: 97110; 97162

== ENCOUNTER 2023-02-24 06:39 | Outpatient (REF) | payer MEDICARE, SELFPAY ==
[2023-02-24 12:24] LABS: Alanine Aminotransferase 18 U/L (0-31); Anion Gap 14 (12-20); Aspartate Amino Transferase 18 U/L (5-31); Blood Urea Nitrogen 9 mg/dL (9-16); Calcium 9.7 mg/dL (8.4-10.2); Carbon Dioxide 29 mmol/L (22-29); Chloride 97 mmol/L (96-108); Cholesterol 204 mg/dL (<200); Estimated Glomerular Filt Rate > 60; Glucose Fasting 105 mg/dL (60-99); HDL Cholesterol 54 mg/dL (>40); LDL Cholesterol Calculated 120 mg/dL (<100); Potassium 2.9 mmol/L (3.3-5.1); Sodium 137 mmol/L (135-145); Triglycerides 153 mg/dL (<150)
[2023-02-24 12:46] LABS: Vitamin D 25-OH Total 56.4 ng/mL (>30)
== END 2023-02-24 06:40 | disposition home or self-care (01) ==
LOC: HO.HMGCLDS 06:39
PROVIDERS: PCP Internal Medicine; Visit Provider Internal Medicine
DX: M85.89 Other specified disorders of bone density and structure, multiple sites (principal); E78.5 Hyperlipidemia, unspecified; E03.9 Hypothyroidism, unspecified; I10 Essential (primary) hypertension; Z78.0 Asymptomatic menopausal state
CPT/HCPCS: 36415; 80048; 80061; 82306; 84439; 84443; 84450; 84460

== ENCOUNTER 2023-03-04 08:39 | Outpatient (AMB) | payer MEDICARE, SELFPAY ==
[2023-03-04 08:44] VITALS: BP 136/72; PULSE 83; O2SAT 97; BMI 32.1
--- NOTE | 2023-03-04 08:44 | A.OFFPC_ITS ---
Vital Signs 03/04/23 08:44 Height 5 ft 3 in Weight 181 lb BMI 32.1 BP 136/72 Blood Pressure Location Rt brachial Position Sitting Pulse 83 Pulse Source Pulse Oximeter Pulse Oximetry (%) 97 Oxygen Delivery Method Room Air Intake Visit Reasons: [id number] Intake Note: patient is here today for her SWV Allergies No Known Allergies [No Known Allergies*] Allergy (Verified 03/04/23 08:45) Tobacco use date assessed: 03/04/23 Fall risk assessment: No Falls in past year Last assessed Fall Risk: 03/04/23 Dental Screening Dental Screen Date: 03/04/23 Did you have a dental visit in the last 12 months?: Yes Did you have a dental problem in the last 6 months where you did not have access to dental care?: No Was dental information given to patient?: Patient has dentist [facility] Medical History (Updated 01/02/23 @ 11:50 by Shantell Kilpatrick MD) Sacral fracture Osteopenia of multiple sites Sacral insufficiency fracture Lumbar radiculopathy, acute History of radiation therapy History of uterine cancer Abnormal mammogram of left breast Breast density 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 Mother Diabetes mellitus Social History Housing: House Alcohol intake: never Patient Tobacco Use Status: Never used Tobacco e-Cigarette/Vaping Use: Never Used Current occupational status: retired Cognitive needs: No Hearing needs: No Vision needs: No Questionnaire Thrive Questionnaire Date Thrive assessed: 11/29/22 AUDIT C Alcohol Use Questionnaire (AUDIT-C) 1. How often do you have a drink containing alcohol?: Never Total Score: 0 HUSSAIN-7 AMB Questionnaire HUSSAIN-7 Date HUSSAIN - 7 assessed: 11/29/22 Source: Developed by Drs. Jay Mann, Stefanie Hawkins, Delonte Nichols and colleagues, with an educational porfirio from [employer]. Physical exam (Primary Care) Vital Signs: Last Vital Signs Pulse 83 03/04/23 08:44 BP 136/72 03/04/23 08:44 Pulse Ox 97 03/04/23 08:44 Oxygen Delivery Method Room Air 03/04/23 08:44 BMI result Body Mass Index 32.1 Tobacco/Smoking Status: Tobacco use Status Tobacco use date assessed 03/04/23 03/04/23 08:53 Patient Tobacco Use Status Never used Tobacco 03/04/23 08:53 e-Cigarette/Vaping Use Never Used 03/04/23 08:53 Thrive Assessment: Date of Thrive Assessment Date Thrive assessed 11/29/22 03/04/23 08:53 Coding
--- NOTE | 2023-03-04 09:03 | A.OFFVIS_ITS ---
Intake Vital Signs 03/04/23 08:44 03/04/23 09:05 Height 5 ft 3 in Weight 181 lb BMI 32.1 32.1 BP 136/72 Blood Pressure Location Rt brachial Position Sitting Pulse 83 Pulse Source Pulse Oximeter Pulse Oximetry (%) 97 Oxygen Delivery Method Room Air Intake Visit Reasons: SWV G0439 Intake Note: pt is here for swv Allergies No Known Allergies [No Known Allergies*] Allergy (Verified 03/05/23 04:12) Medication List - Last Reconciled 03/04/23 by Shantell Kilpatrick MD atorvastatin 10 mg PO Q OTHER DAY cholecalciferol (vitamin D3) 50 mcg PO DAILY cyanocobalamin (vitamin B-12) 100 mcg PO DAILY hydrochlorothiazide 25 mg PO QAM levothyroxine 100 mcg PO .every other day 90 days levothyroxine 88 mcg PO .QOD multivitamin 1 tab PO DAILY HPI SWV G0439 HPI Details SWV ? 67-year-old lady with osteopenia of multiple sites, history of uterine cancer status post radiation therapy and laparoscopic ANATOLY-BSO, has seasonal allergies, hyperlipidemia, hypothyroidism and hypertension, presents today for her subsequent annual wellness visit . She is up-to-date with her screening mammogram, goes to [facility], last done earlier this year and is scheduled for routine screening mammogram later in May this year she is overdue for her bone density scan. She has history of adenomatous polyps in the past as seen on previous colonoscopy 03/06/[address] Ramos, has not yet had her repeat colonoscopy done, advised not to get it done yet by her oncologist due to recent radiation treatment for her uterine cancer. She is up-to-date with her pneumonia vaccination and Shingrix vaccine as well as Tdap. Reminded to get her COVID booster and flu vaccine. She had a recent fasting lipid panel and fasting blood sugar screening done 02/24/2023 which showed slightly elevated fasting glucose at 105 mg/dL, as well as higher triglycerides and LDL cholesterol compared to last check. ? Medical / Social History Reviewed? Past Medical History ?Yes . ? [place] of Care / Care Team list updated ?Yes . ? Surgical/Hospitalization History ?Yes . ? Current Medications (including OTC and supplements) ?Yes . ? Family History ?Yes . ? Tobacco Control form ?Yes . ? AUDIT-C (Alcohol use) form ?Yes . ? Illicit drug use in Social History ?Yes . ? Current diagnosis of depression? ?No ? Appropriate PHQ2/PHQ9 completed ?Yes . ? Data entered by ?Associate Product Manager and reviewed by provider ? Fall Risk ? Fall History? Have you had any falls with injury in the past year? ?No . ? Have you had two or more falls in the past year? ?No . ? Fall Risk Assessment: ?No falls in the past year . ? HRA filled out by the patient, reviewed by Provider and scanned. ? SWV ? Balance? Romberg ?Yes . ? Tandem walk ?Yes . ? Walk and Turn ?Yes . ? Rise from sit to stand ?Yes . ?Vision? Corrective lens ?none ? Vision screen ? Up-to-date, goes with [facility] in [place], sees Dr. Angulo ?Hearing? Whisper test ?pass . ?Written Plan?Completed. See Patient Documents.? HPI Comments History of Present Illness Details 67-year-old lady here today for follow-u p on her lipids , hypertension and hypothyroidism. She had recent fasting labs done which showed hypokalemia with a potassium at 2.9. Patient however asymptomatic\, takes hydrochlorothia zide for hypertension control. She has been compliant with taking her thyroid medication takes alternating dose of levothyroxine 188 mcg altered taken every other day and has been taking atorvastatin 10 mg every other day . Recent fasting labs done showed electrolytes and renal function within normal limits except for hypokalemia with potassium of 2.9. Fasting blood sugar normal, liver enzymes normal, fasting lipids and vitamin-D are all within normal limits. 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 Mother Diabetes mellitus Social History Housing: House Alcohol intake: never Patient Tobacco Use Status: Never used Tobacco e-Cigarette/Vaping Use: Never Used Current occupational status: retired Cognitive needs: No Hearing needs: No Vision needs: No Questionnaire Medicare Wellness Checkup What [age]?: [age] What gender do you identify with?: female During the past 4 weeks, how much have you been bothered by emotional problems such as feeling anxious, depressed, irritable, sad or downhearted, and blue?: not at all During the past 4 weeks, has your physical & emotional health limited your social activities with family, friends, neighbors, or groups?: not at all During the past 4 weeks, how much bodily pain have you generally had?: very mild pain During the past 4 weeks, was someone available to help you if you needed & wanted help?: yes, as much as I wanted During the past 4 weeks, what was the hardest physical activity you could do for at least 2 minutes?: moderate Can you get to places out of walking distance without help? (For eg., can you travel alone on buses, taxis or drive your car?): Yes Can you go shopping for groceries or clothes without someone's help?: Yes Can you prepare your own meals?: Yes Can you do your housework without help?: Yes Because of any health problems, do you need the help of another person with your personal care needs such as eating, bathing, dressing or getting around the house?: No Can you handle your own money without help?: Yes During the past 4 weeks, how would you rate your health in general?: very good During the past 4 weeks how have things been going for you?: very well; could hardly better Are you having difficulties driving your car?: no Do you always fasten your seat belt when you are in a car?: yes, usually During past 4 weeks, have you been bothered by the following: never: Falling or dizzy when standing up, Sexual problems?, Trouble eating well?, Teeth or denture problems? and Problems using the telephone? and seldom: Tiredness or fatigue? Have you fallen 2 or more times in the past year?: No Are you afraid of falling?: No Are you a smoker?: no During the past 4 weeks, how many drinks of wine, beer, or other alcoholic beverages did you have?: no alcohol at all Do you exercise for about 20 minutes 3 or more times a week?: yes, some of the time Have you been given information to help with the following?: yes: Keeping track of your medications? and no: Hazards in your house that might hurt you? How often do you have trouble taking medicines the way you have been told to take them?: I always take medicine as prescribed How confident are you that you can control & manage most of your health problems?: very confident What is your race?: White Mini Mental State Exam (MMSE) Orientation What is the (year) (season) (date) (day) (month)?: year (2022), season (Fall), date (03/04/2023), day (Friday) and month (February) Where are we (state) (county) (town or city) (hospital) (floor)?: state ([place]), county ([place]), town or city ([place]) and hospital/clinic ([facility]) Score Score: 9 Activity of Daily Living Bathing - sponge bath, tub bath or shower: receives no assistance (gets in/out by self, if usual bathing means Dressing - getting clothes from closets & drawers, including inner/outer garments & fasteners.: gets clothes & gets completely dressed without help Toileting - going to the 'toilet room' for urine/bowel elimination & cleaning self/arranging clothes: goes to toilet room, cleans self, arranges clothes without help Transfer: moves in & out of bed and chair without help (may use support object) Continence: controls urination/bowel movements completely by self Feeding: feeds self without help Total Score: 0 Information obtained from: patient Using telephone: independent Traveling: independent Shopping: independent Preparing meals: independent Housework: independent Taking medicine: independent Managing money: independent PHQ-9 Over the last 2 weeks, how often have you been bothered by any of the following problems? 1. Little interest or pleasure in doing things: not at all 2. Feeling down, depressed, or hopeless: not at all 3. Trouble falling or staying asleep, or sleeping too much: not at all 4. Feeling tired or having little energy: not at all 5. Poor appetite or overeating: not at all 6. Feeling bad about yourself - or that you are a failure or have let yourself or your family down: not at all 7. Trouble concentrating on things, such as reading the newspaper or watching television: not at all 8. Moving or speaking so slowly that other people could have noticed. Or the opposite - being so fidgety or restless that you have been moving around a lot more than usual: not at all 9. Thoughts that you would be better off or of hurting yourself in some way: not at all Total score: 0 Depression Screening Interpretation: Negative 34934 - PHQ-9 Billing: Yes Source: Developed by Drs. Jay Mann, Stefanie Hawkins, Delonte Nichols and colleagues, with an educational porfirio from [employer]. Review of Systems Const Denies body aches, Denies fatigue, Denies fever(s), Denies headache(s) and Denies weakness Eyes Denies change in vision ENT Denies dizziness, Denies headache(s) and Denies sore throat Card Denies chest pain, Denies lightheadedness, Denies palpitations and Denies dyspnea Resp Denies chest congestion, Denies cough, Denies dyspnea and Denies wheezing GI Denies abdominal pain, Denies change in bowel habits and Denies heartburn Denies urinary frequency, Denies dysuria and Denies urinary urgency Musc Reports no additional complaints Skin/Breast Denies lesions and Denies rash Neuro Denies dizziness, Denies headache(s) and Denies weakness Psych Reports no additional complaints Endo Denies fatigue, Denies polydipsia, Denies polyuria and Denies palpitations [place]/Lymph Denies easy bruising Aller/Immun Denies seasonal rhinorrhea and Denies wheezing Physical Exam Vital Signs: Last Vital Signs Pulse 83 03/04/23 08:44 BP 136/72 03/04/23 08:44 Pulse Ox 97 03/04/23 08:44 Oxygen Delivery Method Room Air 03/04/23 08:44 BMI result Body Mass Index 32.1 Const General: cooperative, comfortable and no acute distress Orientation/consciousness: patient oriented x3 Resp Effort & Inspection: normal respiratory effort Auscultation: clear to auscultation bilaterally Cardio Rate: regular rate Rhythm: regular rhythm Heart sounds: S1 normal heart sound present and S2 normal heart sound present GI Palpation (GI): Soft to palpation and nontender General: Yes no CVA tenderness Back/Spine/Pelvis Back: no CVA tenderness Thoracic/Lumbar Spine: thoracic and lumbar spine normal to inspection, thoraco- lumbar ROM normal, No thoracic spinal tenderness and No lumbar spinal tenderness Neuro General: patient oriented x3 Extrem General: Yes no pedal edema Results Reviewed Results Reviewed: RUN: 03/05/23 0421 PAGE 1 [facility] [address] [place] [id number] Icebox Worker: Yevgeniy Silvestre M.D. Specimen Inquiry Name: Teodora Hartmann Age/Sex: 67/F : 1955 Unit#: [id number] Attend Dr: Shantell Kilpatrick MD Re02/24/23 Status: DEP REF Location: [facility] Disch: SPEC : [id number] AMNA: 02/24/23 STATUS: COMP REQ : [id number] RECD: 02/24/[address]: Shantell Kilpatrick MD COMP: 02/24/23 ENTERED: 02/24/[address] [facility] [address]: ORDERED: Met Prof Fast, AST, ALT, Lipid Panel, Vitamin D 25-OH, Free T4, TSH Test Result Flag Reference Site Sodium 137 135-145 mmol/L Potassium 2.9 L 3.3-5.1 mmol/L CL 97 96-108 mmol/L CO2 29 22-29 mmol/L Gap 14 12-20 BUN 9 9-16 mg/dL Creat 0.73 0.5-1.4 mg/dL EGFR > 60 NOTE: For -[place] individuals, multiply the result by 1.210. Chronic Kidney Disease: Estimated GFR < 60 mL/min/1.73m2 Severe Kidney Disease: Estimated GFR < 15 mL/min/1.73m2 FBS 105 H 60-99 mg/dL A fasting glucose from 100-125 mg/dl is considered impaired (pre-diabetes). CA 9.7 8.4-10.2 mg/dL AST (GOT) 18 5-31 U/L ALT (GPT) 18 0-31 U/L Triglyceride 153 H <150 mg/dL Desirable Triglyceride: less than 150 mg/dL Borderline High Triglyceride 150-199 mg/dL High Triglyceride: 200-499 mg/dL Very High Triglyceride: greater than or equal to 5OO mg/dL Cholesterol 204 H <200 mg/dL Desirable Cholesterol: less than 200 mg/dL Borderline High Cholesterol: 200-239 mg/dL High Cholesterol: greater than 239 mg/dL LDL Calculated 120 H <100 mg/dL Desirable LDL: less than 100 mg/dL Near Optimal/Above Optimal LDL: 110-129 mg/dL Borderline High LDL: 130-159 mg/dL High LDL: 160-189 mg/dL Very High LDL: greater than or equal to 190 mg/dL HDL 54 >40 mg/dL Desirable HDL: greater than 40 mg/dL Note: This HDL assay may give artificially low results in patients with liver disease. Vit D 25-OH Tot 56.4 >30 ng/mL Health Based Reference Values* < 20 ng/mL Deficient 20-30 ng/mL Insufficient > 30 ng/mL Sufficient *Narendra HUNT. N Engl J Med. 2007;[id number]:266-280 Care must be taken in interpreting Vitamin D results from different laboratories and methodologies. Published data demonstrated that results from patients undergoing hemodialysis may show a negative bias when tested with various automated 25-OH vitamin D assays when compared to LC-MS/MS. When testing samples from patients whose predominant f orm of Vitamin D is Vitamin D2, such as patients receiving Vitamin D2 supplementation, results that are subtherapeutic should be confirmed with another method such as LC-MS/MS. Free T4 1.30 0.71-1.85 ng/dL TSH 3rd Gen. 1.10 0.32-4.0 uIU/mL Assessment & Plan Assessment & Plan (1) Advanced directives, counseling/discussion: Code(s): Z71.89 - Other specified counseling Plan: Initiated the conversation about Advanced Directives. Advanced Directives help patients prepare for current and future decisions about their medical treatment and place of care. Discussed with patient that it is a process where a patients current condition and prognosis are reviewed, their wishes for information regarding their illness are elicited, and likely medical dilemmas are presented and options discussed. Healthcare proxy and MOLST form completed today. These forms can be amended as needed, reviewed yearly and make changes as needed (2) Hypertension: Code(s): I10 - Essential (primary) hypertension Qualifiers: Hypertension type: essential hypertension Qualified Code(s): I10 - Essential (primary) hypertension Plan: Discontinue hydrochlorothiazide, will start on lisinopril 5 mg 1 tablet once a day in a.m.. Importance of adhering to a low-salt diet, return to clinic in a week to check blood pressure with nurse navigator and also to check electrolytes after starting medication (3) Hypokalemia: Code(s): E87.6 - Hypokalemia Plan: Started on potassium chloride ER 10 mEq per tablet taken once a day for 1 week. Will recheck potassium levels again next week (4) Osteopenia of multiple sites: Code(s): M85.89 - Other specified disorders of bone density and structure, multiple sites Plan: Ordered bone density scan to be done with mammogram next year at [facility] (5) History of uterine cancer: Code(s): Z85.42 - Personal history of malignant neoplasm of other parts of uterus Plan: Currently followed by oncology at [facility] (6) Hyperlipidemia: Code(s): E78.5 - Hyperlipidemia, unspecified Qualifiers: Hyperlipidemia type: pure hypercholesterolemia Qualified Code(s): E78.00 - Pure hypercholesterolemia, unspecified Plan: Reviewed recent fasting lipid results with patient, will increase atorvastatin dosing frequency to 10 mg daily now. Continue adhering to healthy eating habits and getting regular exercise, will repeat another fasting lipid panel in 3 months (7) Hypothyroidism: Code(s): E03.9 - Hypothyroidism, unspecified Qualifiers: Hypothyroidism type: acquired Qualified Code(s): E03.9 - Hypothyroidism, unspecified Plan: Thyroid levels are stable controlled on current dose, will continue (8) Osteopenia of lumbar spine: Code(s): M85.88 - Other specified disorders of bone density and structure, other site Plan: Ordered bone density scan to be done together with her screening mammogram scheduled for 05/19/2023 at [facility] (9) Tubular adenoma of colon: Code(s): D12.6 - Benign neoplasm of colon, unspecified Plan: Will check with her oncology and she can proceed with getting another screening colonoscopy (10) Encounter for subsequent annual wellness visit (AWV) in Medicare patient: Code(s): Z00.00 - Encounter for general adult medical examination without abnormal findings Plan: Medical wellness checklist reviewed, discussed with patient and updated, copy given, Orders: Orders Potassium 1 Week E87.6 - Hypokalemia Medications: New lisinopril 5 mg PO DAILY 30 tabs 0RF I10 - Essential (primary) hypertension Changed From atorvastatin 10 mg PO Q OTHER DAY 45 tabs 4RF To atorvastatin 10 mg PO DAILY 90 tabs 4RF Refilled potassium chloride ER 10 mEq PO DAILY 7 tabs 0RF E87.6 - Hypokalemia Discontinued hydrochlorothiazide Discontinued Reason: Doctor's Order 25 mg PO QAM 90 tabs 3RF Quality Reporting (2019) Depression/Bipolar (159/160/161/177) PHQ-9: Total score: 0 Coding Level of Care Code Medicare Subsequent (G0439) Est Pt Level 4 (04607) Diagnoses Advanced directives, counseling/discussion Z71.89 Essential hypertension I10 Hypertension type: essential hypertension Hypokalemia E87.6 Osteopenia of multiple sites M85.89 History of uterine cancer Z85.42 Pure hypercholesterolemia E78.00 Hyperlipidemia type: pure hypercholesterolemia Acquired hypothyroidism E03.9 Hypothyroidism type: acquired Osteopenia of lumbar spine M85.88 Tubular adenoma of colon D12.6 Encounter for subsequent annual wellness visit (AWV) in Medicare patient Z00.00 CPT Codes Advance Care Planning - Time spent: 16-45 minutes ([id number]) Advance Care Planning Advance Care Planning discussion: Exists, not on file Date of discussion: 03/04/23 Who was present: Patient Forms completed: Health Care Proxy and MOLST Time spent: 16-45 minutes Actual minutes spent: 16
[2023-03-04 09:05] VITALS: BMI 32.1
== END 2023-03-04 09:58 | disposition home or self-care (01) ==
PROVIDERS: PCP Internal Medicine; Visit Provider Internal Medicine
DX: Z00.00 Encounter for general adult medical examination without abnormal findings (principal); I10 Essential (primary) hypertension; Z85.42 Personal history of malignant neoplasm of other parts of uterus; E03.9 Hypothyroidism, unspecified; Z71.89 Other specified counseling; E87.6 Hypokalemia; M85.89 Other specified disorders of bone density and structure, multiple sites; E78.00 Pure hypercholesterolemia, unspecified; M85.88 Other specified disorders of bone density and structure, other site; D12.6 Benign neoplasm of colon, unspecified
CPT/HCPCS: 99497; G0439

== ENCOUNTER 2023-03-13 07:01 | Outpatient (REF) | payer MEDICARE, SELFPAY ==
[2023-03-13 11:30] LABS: Potassium 4.2 mmol/L (3.3-5.1)
== END 2023-03-13 07:02 | disposition home or self-care (01) ==
LOC: HO.HMGCLDS 07:01
PROVIDERS: PCP Internal Medicine; Visit Provider Internal Medicine
DX: E87.6 Hypokalemia (principal)
CPT/HCPCS: 36415; 84132

== ENCOUNTER 2023-05-14 14:39 | Outpatient (AMB) | payer MEDICARE, SELFPAY ==
--- NOTE | 2023-05-14 14:41 | MHC.OFFWIV ---
Intake Vital Signs 05/14/23 14:42 Height 5 ft 3 in Weight 81.647 kg BMI 31.9 BP 140/70 H Blood Pressure Location Rt brachial Position Sitting Pulse 96 Pulse Source Pulse Oximeter Temp 97.4 F Temp Source Temporal Artery Scan Pulse Oximetry (%) 98 Oxygen Delivery Method Room Air Intake Visit Reasons: EP, cough, congestion (masked) Intake Note: pt is here today for cough, congestion started 1 week ago Patient Tobacco Use Status: Never used Tobacco Allergies No Known Allergies [No Known Allergies*] Allergy (Verified 05/14/23 14:41) Do you need a note to return to daycare/school/sports/work: No HPI HPI Comments History of Present Illness Details 1511 67 year old female presents w/ cough X a week and a half. No a/c cp/sob. No production of sputum. and family member sick. No fevers, chills, cp, sob, n/v, abd pain,headache, vision chanes PE benign Concerns for bronchitis versus pneumonia. Unlikely pulmonary embolism, ACS, acute respiratory distress. Other differentials include viral illness Plan antibiotics. Educated patient on diagnosis and treatment plan, answered all question, patient verbalizes understanding. At this time patient will be discharged home, advised to return with new or worsening symptoms. Educated on worrisome signs and symptoms and when to return. At this time I feel comfortable discharge home. 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 Mother Diabetes mellitus Social History Housing: House Alcohol intake: never Comment: cramping Patient Tobacco Use Status: Never used Tobacco e-Cigarette/Vaping Use: Never Used Current occupational status: retired Cognitive needs: No Hearing needs: No Vision needs: No Review of Systems Const Details: Constitutional : No Weight loss, No Fever, No Chills, No Fatigue, No Malaise ENT/Mouth : No sore throat, No Rhinorrhea Eyes: No Eye Pain, No Swelling, No Redness Cardiovascular : No Chest Pain, No SOB, No Dyspnea on Exertion, No Orthopnea, No Edema, No Palpitations Respiratory : + Cough, No Sputum, No Wheezing Gastrointestinal : No Nausea, No Vomiting, No Diarrhea, No Constipation, No abdominal Pain, No Hematochezia, No Melena Genitourinary : No Dysuria, No Urinary Frequency, No Hematuria, Musculoskeletal : No joint pain, No Myalgias, No Joint Swelling Skin : No Skin Lesions, No rash Neuro : No Weakness, No Numbness, No Dizziness, No Headache Psych : No Anxiety/Panic, No Depression All other systems reviewed and are negative All systems reviewed & are unremarkable except as noted in HPI and below Physical Exam Vital Signs: Last Vital Signs Temp 97.4 F 05/14/23 14:42 Pulse 96 05/14/23 14:42 BP 140/70 H 05/14/23 14:42 Pulse Ox 98 05/14/23 14:42 Oxygen Delivery Method Room Air 05/14/23 14:42 BMI result Body Mass Index 31.9 vss Appearance: Alert.? Oriented X3.? No acute distress.? Head: Normocephalic, atraumatic, no step-offs or deformities Eyes: Pupils equal, round and reactive to light.? Neck: Normal inspection.? Neck supple.? CVS: Normal heart rate and rhythm.? Pulses normal.? Respiratory: No respiratory distress.? Breath sounds normal.? Abdomen: Soft and nontender.? Skin: Skin warm and dry.? Normal skin color.? Normal skin turgor.? Extremities: No lower extremity edema.? No calf ttp. 5/5 strength to bilateral upper and lower extremities Neuro: Oriented X 3.? No motor deficit.? No sensory deficit. CN 2-12 intact Assessment & Plan Assessment & Plan (1) Bronchitis: Code(s): J40 - Bronchitis, not specified as acute or chronic Plan Take your medications as prescribed. If you were prescribed antibiotics today, it is important that you take your medication to their entirety, do not skip any doses, do not finish them early. Follow-up with your primary care provider this week. Return to the emergency department with new or worsening symptoms. Such as fevers, chills, chest pain, shortness of breath, nausea, vomiting, dizziness, headache, vision changes, lethargy In case of emergency call 911 Medications: New prednisone 40 mg (2 x 20 mg) PO DAILY 5 days 10 tabs 0RF doxycycline hyclate 100 mg PO BID 7 days 14 caps 0RF albuterol sulfate 90 mcg/actuation 2 puffs inhalation Q6H PRN 6.7 grams 0RF shortness of breath or wheezing Coding Level of Care Code Est Pt Level 3 (87409) Diagnoses Bronchitis J40
[2023-05-14 14:42] VITALS: BP 140/70; PULSE 96; TEMP 36.3; O2SAT 98; BMI 31.9
== END 2023-05-14 15:33 | disposition home or self-care (01) ==
PROVIDERS: PCP Internal Medicine; Visit Provider Physician Assistant
DX: J40 Bronchitis, not specified as acute or chronic (principal)
CPT/HCPCS: 99213

== ENCOUNTER 2023-06-17 09:08 | Outpatient (AMB) | payer MEDICARE, SELFPAY ==
[2023-06-17 09:48] VITALS: BP 146/84; PULSE 78; O2SAT 99; BMI 31.6
--- NOTE | 2023-06-17 09:48 | MHC.PC.OV ---
Vital Signs 06/17/23 09:48 Height 5 ft 3 in Weight 178 lb 8 oz BMI 31.6 BP 146/84 H Blood Pressure Location Rt brachial Position Sitting Pulse 78 Pulse Source Pulse Oximeter Pulse Oximetry (%) 99 Oxygen Delivery Method Room Air Intake Visit Reasons: follow up Intake Note: Pt is here to follow for her HTN Allergies No Known Allergies [No Known Allergies*] Allergy (Verified 06/17/23 10:16) Medication List - Last Reconciled 06/17/23 by Shantell Kilpatrick MD albuterol sulfate 90 mcg/actuation 2 puffs inhalation Q6H PRN atorvastatin 10 mg PO DAILY cholecalciferol (vitamin D3) 50 mcg PO DAILY cyanocobalamin (vitamin B-12) 100 mcg PO DAILY levothyroxine 100 mcg PO .every other day 90 days levothyroxine 88 mcg PO .QOD lisinopril 5 mg PO DAILY multivitamin 1 tab PO DAILY Tobacco use date assessed: 06/17/23 Fall risk assessment: No Falls in past year Last assessed Fall Risk: 06/17/23 Dental Screening Dental Screen Date: 06/17/23 Did you have a dental visit in the last 12 months?: Yes Did you have a dental problem in the last 6 months where you did not have access to dental care?: No Was dental information given to patient?: Patient has dentist HPI follow up HPI Details 67 year-old lady with osteopenia of multiple sites, history of uterine cancer status post radiation therapy and laparoscopic ANATOLY-BSO, has seasonal allergies, hyperlipidemia, hypothyroidism and hypertension, presents today for her follow-up visit. She has been feeling well, with no new complaints. 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 Mother Diabetes mellitus Social History Housing: House Alcohol intake: never Comment: cramping Patient Tobacco Use Status: Never used Tobacco e-Cigarette/Vaping Use: Never Used Current occupational status: retired Cognitive needs: No Hearing needs: No Vision needs: No Questionnaire PHQ-9 Over the last 2 weeks, how often have you been bothered by any of the following problems? 1. Little interest or pleasure in doing things: not at all 2. Feeling down, depressed, or hopeless: not at all 3. Trouble falling or staying asleep, or sleeping too much: not at all 4. Feeling tired or having little energy: not at all 5. Poor appetite or overeating: not at all 6. Feeling bad about yourself - or that you are a failure or have let yourself or your family down: not at all 7. Trouble concentrating on things, such as reading the newspaper or watching television: not at all 8. Moving or speaking so slowly that other people could have noticed. Or the opposite - being so fidgety or restless that you have been moving around a lot more than usual: not at all 9. Thoughts that you would be better off or of hurting yourself in some way: not at all Total score: 0 Depression Screening Interpretation: Negative Depression Screening Done: Yes 18286 - PHQ-9 Billing: Yes Source: Developed by Drs. Jay Mann, Stefanie Hawkins, Delonte Nichols and colleagues, with an educational porfirio from [employer]. Thrive Questionnaire Date Thrive assessed: 06/17/23 I am a: Patient What is your living situation today?: I have a steady place to live Within the past 12 months, did the food you bought not last and you didn't have the money to get more?: Never true Within the past 12 months, did you worry whether your food would run out before you got money to buy more?: Never true Do you have trouble paying for medicines?: No Do you have trouble getting transportation to medical appointments?: No Do you have trouble paying your heating and electricity bill?: No Do you have trouble taking care of your child, family member or friend?: No Do you have trouble with day-to-day activities such as bathing, preparing meals, shopping, managing finances, etc.?: No Are you currently unemployed and looking for a job?: No Are you interested in more education?: No AUDIT C Alcohol Use Questionnaire (AUDIT-C) 1. How often do you have a drink containing alcohol?: Never Total Score: 0 HUSSAIN-7 AMB Questionnaire HUSSAIN-7 Date HUSSAIN - 7 assessed: 06/17/23 Feeling nervous, anxious, or on edge: 0 = Not at all Not being able to stop or control worryin = Not at all Worrying too much about different things: 0 = Not at all Trouble relaxin = Not at all Being so restless that it is hard to sit still: 0 = Not at all Becoming easily annoyed or irritable: 0 = Not at all Feeling afraid as if something awful might happen: 0 = Not at all Total HUSSAIN-7 score (0-4 normal; 5-9 mild; 10-14 moderate; 15-21 severe): 0 Source: Developed by Drs. Jay Mann, Stefanie Hawkins, Delonte Nichols and colleagues, with an educational porfirio from [employer]. HUSSAIN-7 Assessment Billing HUSSAIN-7 Assessment Tool: HUSSAIN-7 Assessment 86276 Review of Systems Const Denies body aches, Denies fatigue, Denies fever(s), Denies headache(s) and Denies weakness Eyes Denies change in vision ENT Denies dizziness, Denies headache(s) and Denies sore throat Card Denies chest pain, Denies lightheadedness, Denies palpitations and Denies dyspnea Resp Denies chest congestion, Denies cough, Denies dyspnea and Denies wheezing GI Denies abdominal pain, Denies change in bowel habits and Denies heartburn Denies urinary frequency, Denies dysuria and Denies urinary urgency Musc Reports no additional complaints Skin/Breast Denies lesions and Denies rash Neuro Denies dizziness, Denies headache(s) and Denies weakness Psych Reports no additional complaints Endo Denies fatigue, Denies polydipsia, Denies polyuria and Denies palpitations Jefferson/Lymph Denies easy bruising Aller/Immun Denies seasonal rhinorrhea and Denies wheezing Physical exam (Primary Care) Vital Signs: Last Vital Signs Pulse 78 06/17/23 09:48 BP 146/84 H 06/17/23 09:48 Pulse Ox 99 06/17/23 09:48 Oxygen Delivery Method Room Air 06/17/23 09:48 BMI result Body Mass Index 31.6 Tobacco/Smoking Status: Tobacco use Status Tobacco use date assessed 06/17/23 06/17/23 09:55 Patient Tobacco Use Status Never used Tobacco 06/17/23 09:49 e-Cigarette/Vaping Use Never Used 06/17/23 09:49 PHQ-9: PHQ-9 Score PHQ-9: Total score 0 06/18/23 07:12 Depression Screening Interpretation: Negative Thrive Assessment: Date of Thrive Assessment Date Thrive assessed 06/17/23 06/17/23 10:45 Const General: comfortable, no acute distress and alert Orientation/consciousness: patient oriented x3 HENMT Head: Yes normocephalic Ears: external ears normal General nose exam: Normal external nose present Face and sinus: Yes face symmetric Eyes General: appearance normal, both eyes and all related structures Neck Neck: Yes full ROM, Yes no lymphadenopathy and Yes supple Thyroid: Thyroid normal Resp Auscultation: clear to auscultation bilaterally Cardio Other: S1-S2 present regular rate and rhythm GI Palpation (GI): Soft to palpation, nontender, no guarding and no masses General: Yes no CVA tenderness Back/Spine/Pelvis Back: no CVA tenderness and No back tenderness Thoracic/Lumbar Spine: straight leg raise negative bilaterally and pain with thoraco-lumbar ROM Skin General skin exam: no rashes or lesions noted Neuro General: patient oriented x3, gait normal, moves all extremities, Normal light touch and pain sensation, no focal motor deficits and CN's II-XI intact bilaterally Extrem General: Yes full ROM, Yes no joint enlargement, Yes no pedal edema and Yes no calf tenderness Assessment and Plan Assessment & Plan (1) Hypertension: Code(s): I10 - Essential (primary) hypertension Qualifiers: Hypertension type: essential hypertension Qualified Code(s): I10 - Essential (primary) hypertension Plan: Blood pressure not at goal of less than 130/90. Continue with lisinopril 5 mg daily in a.m. and added HCTZ 25 mg 1 tablet daily in a.m., check blood pressure at home, and see nurse navigator in 2 weeks to check blood pressure. Continue on low-salt diet and get regular exercise, at least 30 minutes of cardio exercise 3 to 4 times a week (2) Hypothyroidism: Code(s): E03.9 - Hypothyroidism, unspecified Qualifiers: Hypothyroidism type: acquired Qualified Code(s): E03.9 - Hypothyroidism, unspecified Plan: Continue with current dose of levothyroxine, TSH with free T4 ordered today (3) Hyperlipidemia: Code(s): E78.5 - Hyperlipidemia, unspecified Qualifiers: Hyperlipidemia type: pure hypercholesterolemia Qualified Code(s): E78.00 - Pure hypercholesterolemia, unspecified Plan: Continue with atorvastatin 10 mg daily, fasting lipid panel ordered today, continue with adherence to low-cholesterol diet and getting regular exercise. (4) Colon cancer screening: Code(s): Z12.11 - Encounter for screening for malignant neoplasm of colon Plan: Referred to [facility] [place] [facility] clinic for her screening colonoscopy, last done in 2015 with adenomatous polyp removed (5) Osteopenia of lumbar spine: Code(s): M85.88 - Other specified disorders of bone density and structure, other site Plan: Continue cholecalciferol 50 mcg daily, in addition to doing regular weight-bearing exercise. Has an appointment for her repeat bone density scan this year (6) History of adenomatous polyp of colon: Comment: [address] Ramos Code(s): Z86.010 - Personal history of colonic polyps Plan: Referred to [facility] [place] [facility] for her repeat screening colonoscopy, overdue Orders: Orders Comprehensive [place]. Panel Fast 06/17/23 Z78.0 - Asymptomatic menopausal state, D12.6 - Benign neoplasm of colon, unspecified, M85.88 - Other specified disorders of bone density and structure, other site, E78.5 - Hyperlipidemia, unspecified, E03.9 - Hypothyroidism, unspecified, I10 - Essential (primary) hypertension, Z86.39 - Personal history of other endocrine, nutritional and metabolic disease Vitamin D 25-OH Total 06/17/23 Z78.0 - Asymptomatic menopausal state, D12.6 - Benign neoplasm of colon, unspecified, M85.88 - Other specified disorders of bone density and structure, other site, E78.5 - Hyperlipidemia, unspecified, E03.9 - Hypothyroidism, unspecified, I10 - Essential (primary) hypertension, Z86.39 - Personal history of other endocrine, nutritional and metabolic disease Lipid Panel 06/17/23 Z78.0 - Asymptomatic menopausal state, D12.6 - Benign neoplasm of colon, unspecified, M85.88 - Other specified disorders of bone density and structure, other site, E78.5 - Hyperlipidemia, unspecified, E03.9 - Hypothyroidism, unspecified, I10 - Essential (primary) hypertension, Z86.39 - Personal history of other endocrine, nutritional and metabolic disease Vitamin B12 and Folate 06/17/23 Z78.0 - Asymptomatic menopausal state, D12.6 - Benign neoplasm of colon, unspecified, M85.88 - Other specified disorders of bone density and structure, other site, E78.5 - Hyperlipidemia, unspecified, E03.9 - Hypothyroidism, unspecified, I10 - Essential (primary) hypertension, Z86.39 - Personal history of other endocrine, nutritional and metabolic disease Thyroid Stimulating Hormone 06/17/23 Z78.0 - Asymptomatic menopausal state, D12.6 - Benign neoplasm of colon, unspecified, M85.88 - Other specified disorders of bone density and structure, other site, E78.5 - Hyperlipidemia, unspecified, E03.9 - Hypothyroidism, unspecified, I10 - Essential (primary) hypertension, Z86.39 - Personal history of other endocrine, nutritional and metabolic disease Free T4 (Free Thyroxine) 06/17/23 Z78.0 - Asymptomatic menopausal state, D12.6 - Benign neoplasm of colon, unspecified, M85.88 - Other specified disorders of bone density and structure, other site, E78.5 - Hyperlipidemia, unspecified, E03.9 - Hypothyroidism, unspecified, I10 - Essential (primary) hypertension, Z86.39 - Personal history of other endocrine, nutritional and metabolic disease Referrals Gastroenterology Referral Z12.11 - Encounter for screening for malignant neoplasm of colon, Z86.010 - Personal history of colonic polyps Medications: New hydrochlorothiazide 25 mg PO QAM 30 tabs 0RF Coding Level of Care Code Est Pt Level 4 (65551) Diagnoses Essential hypertension I10 Hypertension type: essential hypertension Acquired hypothyroidism E03.9 Hypothyroidism type: acquired Pure hypercholesterolemia E78.00 Hyperlipidemia type: pure hypercholesterolemia Colon cancer screening Z12.11 Osteopenia of lumbar spine M85.88 History of adenomatous polyp of colon Z86.010 Additional Codes HUSSAIN-7 Assessment Billing - HUSSAIN-7 Assessment Tool: HUSSAIN-7 Assessment 44704 ([id number])
== END 2023-06-17 10:48 | disposition home or self-care (01) ==
PROVIDERS: PCP Internal Medicine; Visit Provider Internal Medicine
DX: I10 Essential (primary) hypertension (principal); E03.9 Hypothyroidism, unspecified; E78.00 Pure hypercholesterolemia, unspecified; Z12.11 Encounter for screening for malignant neoplasm of colon; M85.88 Other specified disorders of bone density and structure, other site; Z86.010 Personal history of colon polyps
CPT/HCPCS: 99214

== ENCOUNTER 2023-06-17 10:50 | Outpatient (REF) | payer MEDICARE, SELFPAY ==
[2023-06-17 13:56] LABS: Alanine Aminotransferase 14 U/L (0-31); Albumin Level 4.5 g/dL (3.5-5.0); Alkaline Phosphatase 117 U/L (39-117); Anion Gap 13 (12-20); Aspartate Amino Transferase 17 U/L (5-31); Bilirubin Total 0.5 mg/dL (0.0-1.0); Blood Urea Nitrogen 11 mg/dL (9-16); Calcium 10.1 mg/dL (8.4-10.2); Carbon Dioxide 29 mmol/L (22-29); Chloride 103 mmol/L (96-108); Cholesterol 171 mg/dL (<200); Estimated Glomerular Filt Rate > 60; Glucose Fasting 95 mg/dL (60-99); HDL Cholesterol 55 mg/dL (>40); LDL Cholesterol Calculated 92 mg/dL (<100); Potassium 3.7 mmol/L (3.3-5.1); Sodium 141 mmol/L (135-145); Total Protein 7.9 g/dL (6.5-8.0); Triglycerides 122 mg/dL (<150)
[2023-06-17 14:02] LABS: Free T4 (Free Thyroxine) 1.45 ng/dL (0.71-1.85); Thyroid Stimulating Hormone 0.98 uIU/mL (0.32-4.0); Vitamin D 25-OH Total 50.1 ng/mL (>30)
[2023-06-17 14:06] LABS: Folate 14.3 ng/mL (> or = 4.0); Vitamin B12 467 pg/mL (200-900)
== END 2023-06-17 10:51 | disposition home or self-care (01) ==
LOC: HO.HMGCLDS 10:50
PROVIDERS: PCP Internal Medicine; Visit Provider Internal Medicine
DX: D12.6 Benign neoplasm of colon, unspecified (principal); M85.88 Other specified disorders of bone density and structure, other site; E78.5 Hyperlipidemia, unspecified; E03.9 Hypothyroidism, unspecified; I10 Essential (primary) hypertension; Z78.0 Asymptomatic menopausal state; Z86.39 Personal history of other endocrine, nutritional and metabolic disease
CPT/HCPCS: 36415; 80053; 80061; 82306; 82607; 82746; 84439; 84443

== ENCOUNTER 2023-08-18 08:29 | Outpatient (AMB) | payer MEDICARE, SELFPAY ==
[2023-08-18 08:58] VITALS: BP 140/73; PULSE 94; BMI 30.1
--- NOTE | 2023-08-18 08:58 | MHC.OFFVIS ---
Intake Vital Signs 08/18/23 08:58 Height 5 ft 3 in Weight 169 lb 12.095 oz BMI 30.1 BP 140/73 H Blood Pressure Location Rt brachial Position Sitting Pulse 94 Intake Visit Reasons: Colonoscopy Screening Intake Note: Jules win office today for colonoscopy screening. CC: Last colonoscopy done at [facility] about 7 years ago. Patient s/p hysterectomy d/t cancer. Patient reports a week ago she noticed some vaginal bleeding. She was sent for CT can and was told she has a mass under her navel. She states since after her radiation she has been having diarrhea, and reports an episode of blood in stool last year around March or April. Web Interface Developer Required: No Allergies No Known Allergies [No Known Allergies*] Allergy (Verified 08/18/23 09:05) HPI Colonoscopy Screening HPI Details 67 year old? female with past medical history of uterine CA, seasonal allergies, hyperlipidemia, hypothyroidism, hypertension, radiation therapy is here today for pre colonoscopy screening.? Patient was sent to us by her PCP.? Last colonoscopy in 2015. Patient was supposed to go for another colonoscopy, however she was diagnosed with uterine cancer and had to go for chemotherapy then radiation. Patient completed radiation therapy last year for uterine cancer. Patient had 6 weeks for total of 30 radiation treatments. Patient had CT scan few weeks ago and they found a lump in her abdomen. Patient states that she is going for biopsy within the next few weeks. Patient reports that since her radiation she has been having occasional loose stools. Patient reports diarrhea depending on what she eats and uses Imodium on as needed basis. Denies history of difficulty with sedation or anesthesia in the past.? Negative for history of sleep apnea.? Denies any history of cardiac, renal, pulmonary, or hepatic disease.?? No history of infectious? diseases like hepatitis A, B, C, HIV or tuberculosis.? Patient is not on any anticoagulation therapy. 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, stage 1 Seasonal allergies Postmenopausal bleeding Menopause Osteopenia of lumbar spine Hyperlipidemia Osteoarthritis, knee Hypothyroidism Hypertension Surgical History (Updated 08/18/23 @ 09:07 by AL Thakkar) H/O colonoscopy Status post total hysterectomy and bilateral salpingo-oophorectomy History of total knee arthroplasty H/O arthroscopy of right knee H/O arthroscopy of left knee H/O arthroscopic knee surgery H/O blepharoplasty Family History (Updated 08/18/23 @ 09:09 by AL Thakkar) Father Prostate cancer Heart disease Mother Diabetes mellitus Mother Skin cancer Social History Housing: House Alcohol intake: never Comment: cramping Patient Tobacco Use Status: Never used Tobacco e-Cigarette/Vaping Use: Never Used Current occupational status: retired Cognitive needs: No Hearing needs: No Vision needs: No Review of Systems Const Denies weight gain and Denies weight loss ENT Reports no additional complaints, Denies dysphagia and Denies odynophagia Card Reports no additional complaints Resp Reports no additional complaints GI Denies abdominal pain, Denies belching, Denies melena, Denies bloating, Denies change in bowel habits, Denies dysphagia, Denies excessive flatus, Denies dyspepsia, Denies heartburn, Denies diarrhea, Reports loose stools, Denies nausea, Denies odynophagia and Denies vomiting Musc Reports no additional complaints Neuro Reports no additional complaints Psych Reports no additional complaints Endo Reports no additional complaints Physical Exam Vital Signs: Last Vital Signs Pulse 94 08/18/23 08:58 BP 140/73 H 08/18/23 08:58 BMI result Body Mass Index 30.1 Const General: healthy appearing, no acute distress and well developed Nutritional Appearance: obese Orientation/consciousness: patient oriented x3 Resp Effort & Inspection: normal respiratory effort, able to speak in complete sentences, no tracheal deviation and symmetric chest movement Auscultation: clear to auscultation bilaterally Cardio Rate: regular rate GI Inspection: Yes normal to inspection, No distended and Yes obesity Palpation (GI): Soft to palpation, not firm, nontender and No hepatosplenomegaly present Auscultation: normal bowel sounds General: Yes no CVA tenderness Back/Spine/Pelvis Back: no CVA tenderness Skin General skin exam: elasticity normal, turgor normal and dry skin Neuro General: patient oriented x3 Psych Appearance: grossly normal Mental Status: mental status grossly normal Assessment & Plan Assessment & Plan (1) Colon cancer screening: Code(s): Z12.11 - Encounter for screening for malignant neoplasm of colon Plan Patient denies any cardiac or respiratory symptoms.? Denies any issues with anesthesia in the past.? Denies any history of sleep apnea.? No history infectious diseases in the past or present.? Not on any anticoagulation therapy.? Patient reports occasional loose stools since she had her radiation about a year ago or so. Last colonoscopy was in 2016 and tubular adenoma found. Patient denies melena, hematochezia, unintentional weight loss or ribbon like stools.? Discussed at length the pre-procedure,? prep, diet & medications as well as what to expect prior, during and after the procedure.?? Stressed the importance of good bowel prep. ?Recommended the use of Vaseline or Calmoseptine OTC & baby wipes with bowel movements to promote comfort.? ?Patient verbalizes understanding and agrees to plan of care.? She was given the opportunity to ask questions and all questions answered.? We will see her after the procedure.? Medications: New bisacodyl (Dulcolax (bisacodyl)) take 4 tabs at noon the day before your colonoscopy 20 mg (4 x 5 mg) PO ONCE 1 day 4 tabs 0RF Z12.11 - Encounter for screening for malignant neoplasm of colon polyethylene glycol 3350 (Miralax) As directed by gastroenterology department at [facility] 238 grams PO ONCE 238 grams 0RF Z12.11 - Encounter for screening for malignant neoplasm of colon Coding Level of Care Code New Pt Level 3 (35787) Diagnoses Colon cancer screening Z12.11 Time Spent (min) 40 Comment 30 minutes spent with patient and additional 10 minutes spent reviewing her records
== END 2023-08-18 09:32 | disposition home or self-care (01) ==
PROVIDERS: PCP Internal Medicine; Visit Provider Nurse Practitioner Family
DX: Z12.11 Encounter for screening for malignant neoplasm of colon (principal)
CPT/HCPCS: 99024

== ENCOUNTER → 2023-08-18 08:29 | Outpatient (BNVA) | payer MEDICARE, SELFPAY | PROVIDERS: PCP Internal Medicine; Visit Provider Nurse Practitioner Family | DX: Z12.11 Encounter for screening for malignant neoplasm of colon (principal) | CPT/HCPCS: 99212 ==

== ENCOUNTER 2023-12-18 09:58 | Outpatient (AMB) | payer MEDICARE, SELFPAY ==
--- NOTE | 2023-12-18 10:05 | MHC.PC.OV ---
Vital Signs 12/18/23 10:11 Height 5 ft 9 in Weight 159 lb BMI 23.5 BP 140/78 H Blood Pressure Location Rt brachial Position Sitting Pulse 86 Pulse Source Pulse Oximeter Pulse Oximetry (%) 98 Oxygen Delivery Method Room Air Intake Visit Reasons: [facility] 12/08/23 [facility] [place] Intake Note: Pt is here today for her [facility] Allergies No Known Allergies [No Known Allergies*] Allergy (Verified 12/18/23 10:45) Medication List - Last Reconciled 12/18/23 by Shantell Kilpatrick MD amlodipine 5 mg PO DAILY atorvastatin 10 mg PO DAILY cholecalciferol (vitamin D3) 50 mcg PO DAILY cyanocobalamin (vitamin B-12) 100 mcg PO DAILY lenvatinib 8 mg PO DAILY levothyroxine 100 mcg PO .every other day 90 days levothyroxine 88 mcg PO .QOD lisinopril 5 mg PO DAILY multivitamin with folic acid 400 mcg (Daily-Neeraj (with folic acid)) 1 tab PO DAILY tramadol 25 mg PO Q12H PRN Tobacco use date assessed: 12/18/23 Fall risk assessment: 1 Fall in past year Last assessed Fall Risk: 12/18/23 Dental Screening Dental Screen Date: 12/18/23 Did you have a dental visit in the last 12 months?: Yes Did you have a dental problem in the last 6 months where you did not have access to dental care?: No Was dental information given to patient?: Patient has dentist HPI [facility] 12/08/23 [facility] [place] HPI Details 68-year-old lady with 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 Lord, followed by external beam radiation and carbo [place] and Taxol. She had recurrence in 2023 with an abdominal wall mass and recently started on Keytruda and VEGF inhibitor, which she started taking since October of 2023, here today for follow-up after recent hospital where she was treated for acute hyponatremia, abnormal thyroid levels, and elevated blood pressure and transaminitis. She was taken off her diuretic, and advised to limit amount of water intake. Currently on started during her recent admission 5 mg taken at night in addition to lisinopril 10 mg daily, She was taken off atorvastatin temporarily, thinking that this was causing her elevated liver enzymes , no signs of any biliary obstruction during admission, now felt more likely that elevations were likely due to current chemotherapy. She also was started on Synthroid 100 mcg taken once a day, and needs recheck of her thyroid levels in 2 months. Feels fine on current dose. She sustained a hairline fracture for pelvis after recent fall last month, seen at [facility] and scheduled for physical therapy. [facility] Medical History (Updated 12/18/23 @ 11:07 by Shantell Kilpatrick MD) Fracture of pelvis History of adenomatous polyp of colon Sacral fracture Osteopenia of multiple sites Sacral insufficiency fracture Lumbar radiculopathy, acute History of radiation therapy History of uterine cancer Abnormal mammogram of left breast Breast density Carcinoma of left fallopian tube Adenocarcinoma of endometrium, stage 1 Seasonal allergies Postmenopausal bleeding Menopause Osteopenia of lumbar spine Hyperlipidemia Osteoarthritis, knee Hypothyroidism Hypertension Surgical History (Updated 08/18/23 @ 09:07 by AL Thakkar) H/O colonoscopy Status post total hysterectomy and bilateral salpingo-oophorectomy History of total knee arthroplasty H/O arthroscopy of right knee H/O arthroscopy of left knee H/O arthroscopic knee surgery H/O blepharoplasty Family History (Updated 08/18/23 @ 09:09 by AL Thakkar) Father Prostate cancer Heart disease Mother Diabetes mellitus Mother Skin cancer Social History Housing: House Alcohol intake: never Comment: cramping Patient Tobacco Use Status: Never used Tobacco e-Cigarette/Vaping Use: Never Used Current occupational status: retired Cognitive needs: No Hearing needs: No Vision needs: No Questionnaire PHQ-9 Over the last 2 weeks, how often have you been bothered by any of the following problems? Depression Screening Interpretation: Negative Depression Screening Done: Yes Source: Developed by Drs. Jay Mann, Stefanie Hawkins, Delonte Nichols and colleagues, with an educational porfirio from [employer]. Thrive Questionnaire Date Thrive assessed: 06/17/23 HUSSAIN-7 AMB Questionnaire HUSSAIN-7 Date HUSSAIN - 7 assessed: 06/17/23 Source: Developed by Drs. Jay Mann, Delonte Garrett Kroenke and colleagues, with an educational porfirio from [employer]. Review of Systems Const Denies body aches, Denies fatigue, Denies fever(s), Denies headache(s) and Denies weakness Eyes Denies change in vision ENT Denies dizziness, Denies headache(s), Denies mouth lesions and Denies sore throat Card Denies chest pain, Denies lightheadedness, Denies palpitations and Denies dyspnea Resp Denies chest congestion, Denies cough, Denies dyspnea and Denies wheezing GI Denies abdominal pain, Denies change in bowel habits and Denies heartburn Denies urinary frequency, Denies dysuria and Denies urinary urgency Musc Reports no additional complaints Skin/Breast Denies lesions and Denies rash Neuro Denies dizziness, Denies headache(s) and Denies weakness Psych Reports no additional complaints Endo Denies fatigue, Denies polydipsia, Denies polyuria and Denies palpitations Jefferson/Lymph Denies easy bruising Aller/Immun Denies seasonal rhinorrhea and Denies wheezing Physical exam (Primary Care) Vital Signs: Last Vital Signs Pulse 86 12/18/23 10:11 BP 140/78 H 12/18/23 10:11 Pulse Ox 98 12/18/23 10:11 Oxygen Delivery Method Room Air 12/18/23 10:11 BMI result Body Mass Index 23.5 Tobacco/Smoking Status: Tobacco use Status Tobacco use date assessed 12/18/23 12/18/23 10:21 Patient Tobacco Use Status Never used Tobacco 12/18/23 10:07 e-Cigarette/Vaping Use Never Used 12/18/23 10:07 Depression Screening Interpretation: Negative Thrive Assessment: Date of Thrive Assessment Date Thrive assessed 06/17/23 12/18/23 10:07 Const General: comfortable, no acute distress and alert Orientation/consciousness: patient oriented x3 HENMT Head: Yes normocephalic Ears: external ears normal General nose exam: Normal external nose present Face and sinus: Yes face symmetric Eyes General: appearance normal, both eyes and all related structures Neck Neck: Yes full ROM, Yes no lymphadenopathy and Yes supple Thyroid: Thyroid normal Resp Auscultation: clear to auscultation bilaterally Cardio Other: S1-S2 present regular rate and rhythm GI Palpation (GI): Soft to palpation, nontender, no guarding and no masses General: Yes no CVA tenderness Back/Spine/Pelvis Back: no CVA tenderness and No back tenderness Skin General skin exam: no rashes or lesions noted Neuro General: patient oriented x3, gait normal, moves all extremities, Normal light touch and pain sensation, no focal motor deficits and CN's II-XI intact bilaterally Extrem General: Yes full ROM, Yes no joint enlargement, Yes no pedal edema and Yes no calf tenderness Assessment and Plan Assessment & Plan (1) Fracture of pelvis: Code(s): S32.9XXA - Fracture of unspecified parts of lumbosacral spine and pelvis, initial encounter for closed fracture Plan: Seen by [facility] and will refer to physical therapy , per their recommendation (2) Hypertension: Code(s): I10 - Essential (primary) hypertension Qualifiers: Hypertension type: essential hypertension Qualified Code(s): I10 - Essential (primary) hypertension Plan: Will increase lisinopril dose to 10 mg daily and continue with 5 mg amlodipine.. Reinforced importance of following a low sodium diet, getting regular exercise, and lowering stress levels. (3) Hypothyroidism: Code(s): E03.9 - Hypothyroidism, unspecified Qualifiers: Hypothyroidism type: acquired Qualified Code(s): E03.9 - Hypothyroidism, unspecified Plan: Continue Synthroid 100 mcg daily, will repeat another TSH free T4 (4) Hyperlipidemia: Code(s): E78.5 - Hyperlipidemia, unspecified Qualifiers: Hyperlipidemia type: pure hypercholesterolemia Qualified Code(s): E78.00 - Pure hypercholesterolemia, unspecified Plan: Ordered a fasting lipid panel (5) History of uterine cancer: Code(s): Z85.42 - Personal history of malignant neoplasm of other parts of uterus Plan: Will check CBC, comprehensive metabolic panel (6) Hyponatremia: Code(s): E87.1 - Hypo-osmolality and hyponatremia Plan: , comprehensive metabolic panel ordered (7) Elevated liver enzymes: Code(s): R74.8 - Abnormal levels of other serum enzymes Plan: Comprehensive metabolic panel ordered patient currently asymptomatic Orders: Orders Thyroid Stimulating Hormone 01/03/24 E03.9 - Hypothyroidism, unspecified, E78.00 - Pure hypercholesterolemia, unspecified, E87.1 - Hypo-osmolality and hyponatremia, I10 - Essential (primary) hypertension, M85.88 - Other specified disorders of bone density and structure, other site, R74.8 - Abnormal levels of other serum enzymes, S32.9XXA - Fracture of unspecified parts of lumbosacral spine and pelvis, initial encounter for closed fracture, Z78.0 - Asymptomatic menopausal state, Z85.42 - Personal history of malignant neoplasm of other parts of uterus Free T4 (Free Thyroxine) 01/03/24 E03.9 - Hypothyroidism, unspecified, E78.00 - Pure hypercholesterolemia, unspecified, E87.1 - Hypo-osmolality and hyponatremia, I10 - Essential (primary) hypertension, M85.88 - Other specified disorders of bone density and structure, other site, R74.8 - Abnormal levels of other serum enzymes, S32.9XXA - Fracture of unspecified parts of lumbosacral spine and pelvis, initial encounter for closed fracture, Z78.0 - Asymptomatic menopausal state, Z85.42 - Personal history of malignant neoplasm of other parts of uterus Magnesium 01/03/24 E03.9 - Hypothyroidism, unspecified, E78.00 - Pure hypercholesterolemia, unspecified, E87.1 - Hypo-osmolality and hyponatremia, I10 - Essential (primary) hypertension, M85.88 - Other specified disorders of bone density and structure, other site, R74.8 - Abnormal levels of other serum enzymes, S32.9XXA - Fracture of unspecified parts of lumbosacral spine and pelvis, initial encounter for closed fracture, Z78.0 - Asymptomatic menopausal state, Z85.42 - Personal history of malignant neoplasm of other parts of uterus Complete Blood Count Auto Diff 01/03/24 E78.00 - Pure hypercholesterolemia, unspecified, Z85.42 - Personal history of malignant neoplasm of other parts of uterus PT Evaluation and Treatment 12/18/23 S32.9XXA - Fracture of unspecified parts of lumbosacral spine and pelvis, initial encounter for closed fracture Comprehensive [place]. Panel Fast 01/03/24 E03.9 - Hypothyroidism, unspecified, E78.00 - Pure hypercholesterolemia, unspecified, E87.1 - Hypo-osmolality and hyponatremia, I10 - Essential (primary) hypertension, M85.88 - Other specified disorders of bone density and structure, other site, R74.8 - Abnormal levels of other serum enzymes, S32.9XXA - Fracture of unspecified parts of lumbosacral spine and pelvis, initial encounter for closed fracture, Z78.0 - Asymptomatic menopausal state, Z85.42 - Personal history of malignant neoplasm of other parts of uterus Lipid Panel 01/03/24 E78.00 - Pure hypercholesterolemia, unspecified, Z85.42 - Personal history of malignant neoplasm of other parts of uterus Medications: Changed From lisinopril 5 mg PO DAILY 90 tabs 1RF I10 - Essential (primary) hypertension To lisinopril 10 mg PO DAILY 90 tabs 1RF I10 - Essential (primary) hypertension Coding Level of Care Code Est Pt Level 4 (24232) Complex EM visit Add On G2211 Diagnoses Fracture of pelvis S32.9XXA Essential hypertension I10 Hypertension type: essential hypertension Acquired hypothyroidism E03.9 Hypothyroidism type: acquired Pure hypercholesterolemia E78.00 Hyperlipidemia type: pure hypercholesterolemia History of uterine cancer Z85.42 Hyponatremia E87.1 Elevated liver enzymes R74.8
[2023-12-18 10:11] VITALS: BP 140/78; PULSE 86; O2SAT 98; BMI 23.5
== END 2023-12-18 11:28 | disposition home or self-care (01) ==
PROVIDERS: PCP Internal Medicine; Visit Provider Internal Medicine
DX: S32.9XXA Fracture of unspecified parts of lumbosacral spine and pelvis, initial encounter for closed fracture (principal); I10 Essential (primary) hypertension; E03.9 Hypothyroidism, unspecified; E78.00 Pure hypercholesterolemia, unspecified; Z85.42 Personal history of malignant neoplasm of other parts of uterus; E87.1 Hypo-osmolality and hyponatremia; R74.8 Abnormal levels of other serum enzymes
CPT/HCPCS: 99214; G2211

== ENCOUNTER 2024-01-03 07:57 | Outpatient (REF) | payer MEDICARE, SELFPAY ==
[2024-01-03 11:25] LABS: MANUAL DIFF FLAG NO
[2024-01-03 11:30] LABS: Basophils Absolute Auto 0.1 X10*3/uL (0.0-0.2); Eosinophils Absolute Auto 0.1 X10*3/uL (0.0-0.4); Eosinophils Percent Auto 1.9 % (0-4); Hematocrit 38.8 % (37.0-47.0); Hemoglobin 13.7 g/dl (12.0-16.0); Imm Gran Abs Auto 0.01 X10*3/uL (0.00-0.03); Imm Gran Pct Auto 0.2 % (0.0-0.4); Lymphocytes Percent Auto 18.8 % (20-40); Mean Corpuscular HGB Conc 35.3 g/dl (31.0-35.0); Mean Corpuscular Hemoglobin 31.1 pg (27.0-33.0); Mean Corpuscular Volume 88.2 fL (80.0-98.0); Mean Platelet Volume 9.3 fL (9.4-12.3); Monocytes Absolute Auto 0.5 X10*3/uL (0.1-1.2); Monocytes Percent Auto 8.6 % (2-11); Neutrophils Absolute Auto 3.6 x10*3/uL (2.0-8.3); Neutrophils Percent Auto 69.5 % (45-73); Platelet Count 181 X10*3/uL (160-400); White Blood Count 5.2 X10*3/uL (4.8-10.8)
[2024-01-03 11:59] LABS: Free T4 (Free Thyroxine) 1.13 ng/dL (0.71-1.85); Thyroid Stimulating Hormone 18.77 uIU/mL (0.32-4.0)
[2024-01-03 12:04] LABS: Alanine Aminotransferase 18 U/L (0-31); Albumin Level 4.2 g/dL (3.5-5.0); Alkaline Phosphatase 71 U/L (39-117); Anion Gap 14 (12-20); Aspartate Amino Transferase 25 U/L (5-31); Bilirubin Total 0.9 mg/dL (0.0-1.0); Blood Urea Nitrogen 9 mg/dL (9-16); Calcium 9.6 mg/dL (8.4-10.2); Carbon Dioxide 28 mmol/L (22-29); Chloride 101 mmol/L (96-108); Cholesterol 182 mg/dL (<200); Estimated Glomerular Filt Rate > 60; Glucose Fasting 97 mg/dL (60-99); HDL Cholesterol 52 mg/dL (>40); LDL Cholesterol Calculated 97 mg/dL (<100); Potassium 3.2 mmol/L (3.3-5.1); Sodium 140 mmol/L (135-145); Total Protein 7.2 g/dL (6.5-8.0); Triglycerides 166 mg/dL (<150)
[2024-01-03 12:13] LABS: Magnesium 1.3 mg/dL (1.6-2.6)
== END 2024-01-03 07:58 | disposition home or self-care (01) ==
LOC: HO.HMGCLDS 07:57
PROVIDERS: PCP Internal Medicine; Visit Provider Internal Medicine
DX: S32.9XXA Fracture of unspecified parts of lumbosacral spine and pelvis, initial encounter for closed fracture (principal); Z85.42 Personal history of malignant neoplasm of other parts of uterus; Z78.0 Asymptomatic menopausal state; M85.88 Other specified disorders of bone density and structure, other site; E87.1 Hypo-osmolality and hyponatremia; R74.8 Abnormal levels of other serum enzymes; E03.9 Hypothyroidism, unspecified; I10 Essential (primary) hypertension; E78.00 Pure hypercholesterolemia, unspecified
CPT/HCPCS: 36415; 80053; 80061; 83735; 84439; 84443; 85025

== ENCOUNTER 2024-01-10 08:43 | Outpatient (REF) | payer MEDICARE, SELFPAY ==
[2024-01-10 11:55] LABS: Potassium 3.2 mmol/L (3.3-5.1)
[2024-01-10 12:00] LABS: Magnesium 1.4 mg/dL (1.6-2.6)
== END 2024-01-10 08:44 | disposition home or self-care (01) ==
LOC: HO.HMGCLDS 08:43
PROVIDERS: PCP Internal Medicine; Visit Provider Internal Medicine
DX: E87.6 Hypokalemia (principal); E83.42 Hypomagnesemia
CPT/HCPCS: 36415; 83735; 84132

== ENCOUNTER 2024-01-12 11:45 | Outpatient (AMB) | payer MEDICARE, SELFPAY ==
--- NOTE | 2024-01-12 12:42 | A.OFFPC_ITS ---
Vital Signs 01/12/24 12:43 Weight 156 lb BP 120/78 Blood Pressure Location Rt brachial Position Sitting Pulse 82 Pulse Source Pulse Oximeter Pulse Oximetry (%) 98 Oxygen Delivery Method Room Air Intake Visit Reasons: 1 month follow up per Dr. Kilpatrick Intake Note: Patient here for lab follow up. Allergies No Known Allergies [No Known Allergies*] Allergy (Verified 01/17/24 00:04) Medication List - Last Reconciled 01/12/24 by Shantell Kilpatrick MD amlodipine 5 mg PO DAILY atorvastatin 10 mg PO DAILY cholecalciferol (vitamin D3) 50 mcg PO DAILY cyanocobalamin (vitamin B-12) 100 mcg PO DAILY lenvatinib 8 mg PO DAILY levothyroxine 100 mcg PO .every other day 90 days levothyroxine 88 mcg PO .QOD lisinopril 10 mg PO DAILY magnesium glycinate 100 mg PO DAILY 7 days multivitamin with folic acid 400 mcg (Daily-Neeraj (with folic acid)) 1 tab PO DAILY pembrolizumab (Keytruda) 200 mg IV Q3W potassium chloride ER 10 mEq PO DAILY tramadol 25 mg PO Q12H PRN Tobacco use date assessed: 12/18/23 Fall risk assessment: 1 Fall in past year Last assessed Fall Risk: 01/12/24 Dental Screening Dental Screen Date: 12/18/23 HPI 1 month follow up per Dr. 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 Lord, followed by external beam radiation and carbo [place] and Taxol. She had recurrence in 2023 with an abdominal wall mass and recently started on Keytruda and VEGF inhibitor, which she started taking since October of 2023, here today for follow-up She was hypokalemic and high per magnesemia on last visit, now taking magnesium glycinate 100 mg once a day, and was prescribed potassium chloride 10 mEq once daily. Repeat labs however still showed low magnesium and potassium levels. Patient however is asymptomatic, with no complaints of any leg weakness, no muscle cramps, no chest pain. [facility] Medical History (Updated 01/17/24 @ 00:08 by Shantell Kilpatrick MD) Hypomagnesemia Hypokalemia Fracture of pelvis History of adenomatous polyp of colon Sacral fracture Osteopenia of multiple sites Sacral insufficiency fracture Lumbar radiculopathy, acute History of radiation therapy History of uterine cancer Abnormal mammogram of left breast Breast density Carcinoma of left fallopian tube Adenocarcinoma of endometrium, stage 1 Seasonal allergies Postmenopausal bleeding Menopause Osteopenia of lumbar spine Hyperlipidemia Osteoarthritis, knee Hypothyroidism Hypertension Surgical History H/O colonoscopy Status post total hysterectomy and bilateral salpingo-oophorectomy History of total knee arthroplasty H/O arthroscopy of right knee H/O arthroscopy of left knee H/O arthroscopic knee surgery H/O blepharoplasty Family History Father Prostate cancer Heart disease Mother Diabetes mellitus Mother Skin cancer Social History Housing: House Alcohol intake: never Comment: cramping Patient Tobacco Use Status: Never used Tobacco e-Cigarette/Vaping Use: Never Used Current occupational status: retired Cognitive needs: No Hearing needs: No Vision needs: No Questionnaire PHQ-9 Over the last 2 weeks, how often have you been bothered by any of the following problems? 1. Little interest or pleasure in doing things: not at all 2. Feeling down, depressed, or hopeless: not at all 3. Trouble falling or staying asleep, or sleeping too much: not at all 4. Feeling tired or having little energy: not at all 5. Poor appetite or overeating: not at all 6. Feeling bad about yourself - or that you are a failure or have let yourself or your family down: not at all 7. Trouble concentrating on things, such as reading the newspaper or watching television: not at all 8. Moving or speaking so slowly that other people could have noticed. Or the opposite - being so fidgety or restless that you have been moving around a lot more than usual: not at all 9. Thoughts that you would be better off or of hurting yourself in some way: not at all Total score: 0 Depression Screening Interpretation: Negative Depression Screening Done: Yes Source: Developed by Drs. Jay Mann, Stefanie Hawkins, Delonte Nichols and colleagues, with an educational porfirio from [employer]. Thrive Questionnaire Date Thrive assessed: 06/17/23 I am a: Patient What is your living situation today?: I have a steady place to live Within the past 12 months, did the food you bought not last and you didn't have the money to get more?: Never true Within the past 12 months, did you worry whether your food would run out before you got money to buy more?: Never true Do you have trouble paying for medicines?: No Do you have trouble getting transportation to medical appointments?: No Do you have trouble paying your heating and electricity bill?: No Do you have trouble taking care of your child, family member or friend?: No Do you have trouble with day-to-day activities such as bathing, preparing meals, shopping, managing finances, etc.?: No Are you currently unemployed and looking for a job?: No Are you interested in more education?: No Please select the resources that you would like help with: Housing/Care Home Currently or been in a relationship where the following occur: I choose not to answer THRIVE Score: 0 AUDIT C Alcohol Use Questionnaire (AUDIT-C) 1. How often do you have a drink containing alcohol?: Never Total Score: 0 HUSSAIN-7 AMB Questionnaire HUSSAIN-7 Date HUSSAIN - 7 assessed: 06/17/23 Feeling nervous, anxious, or on edge: 0 = Not at all Not being able to stop or control worryin = Not at all Worrying too much about different things: 0 = Not at all Trouble relaxin = Not at all Being so restless that it is hard to sit still: 0 = Not at all Becoming easily annoyed or irritable: 0 = Not at all Feeling afraid as if something awful might happen: 0 = Not at all Total HUSSAIN-7 score (0-4 normal; 5-9 mild; 10-14 moderate; 15-21 severe): 0 Source: Developed by Drs. Jay Mann, Stefanie Hawkins, Delonte Nichols and colleagues, with an educational porfirio from [employer]. Review of Systems Const Denies body aches, Denies fatigue, Denies fever(s), Denies headache(s) and Denies weakness Eyes Denies change in vision ENT Denies dizziness, Denies headache(s), Denies mouth lesions and Denies sore throat Card Denies chest pain, Denies lightheadedness, Denies palpitations and Denies dyspnea Resp Denies chest congestion, Denies cough, Denies dyspnea and Denies wheezing GI Denies abdominal pain, Denies change in bowel habits and Denies heartburn Denies urinary frequency, Denies dysuria and Denies urinary urgency Musc Reports no additional complaints Skin/Breast Denies lesions and Denies rash Neuro Denies dizziness, Denies headache(s) and Denies weakness Psych Reports no additional complaints Endo Denies fatigue, Denies polydipsia, Denies polyuria and Denies palpitations Jefferson/Lymph Denies easy bruising Aller/Immun Denies seasonal rhinorrhea and Denies wheezing Physical exam (Primary Care) Vital Signs: Last Vital Signs Pulse 82 01/12/24 12:43 BP 120/78 01/12/24 12:43 Pulse Ox 98 01/12/24 12:43 Oxygen Delivery Method Room Air 01/12/24 12:43 Tobacco/Smoking Status: Tobacco use Status Tobacco use date assessed 12/18/23 01/12/24 12:46 Patient Tobacco Use Status Never used Tobacco 01/12/24 12:46 e-Cigarette/Vaping Use Never Used 01/12/24 12:46 PHQ-9: PHQ-9 Score PHQ-9: Total score 0 01/12/24 13:27 Depression Screening Interpretation: Negative Thrive Assessment: Date of Thrive Assessment Date Thrive assessed 06/17/23 01/12/24 12:46 Currently or been in a relationship where the following occur: I choose not to answer Const General: comfortable, no acute distress and alert Orientation/consciousness: patient oriented x3 HENMT Head: Yes normocephalic Ears: external ears normal General nose exam: Normal external nose present Face and sinus: Yes face symmetric Eyes General: appearance normal, both eyes and all related structures Neck Neck: Yes full ROM, Yes no lymphadenopathy and Yes supple Thyroid: Thyroid normal Resp Auscultation: clear to auscultation bilaterally Cardio Other: S1-S2 present regular rate and rhythm GI Palpation (GI): Soft to palpation, nontender, no guarding and no masses General: Yes no CVA tenderness Back/Spine/Pelvis Back: no CVA tenderness and No back tenderness Skin General skin exam: no rashes or lesions noted Neuro General: patient oriented x3, gait normal, moves all extremities, Normal light touch and pain sensation, no focal motor deficits and CN's II-XI intact bilaterally Extrem General: Yes full ROM, Yes no joint enlargement, Yes no pedal edema and Yes no calf tenderness Assessment and Plan Assessment & Plan (1) Hypokalemia: Code(s): E87.6 - Hypokalemia Plan: Continued on potassium chloride 10 mEq to take once a day for the next 7 days. (2) Hypomagnesemia: Code(s): E83.42 - Hypomagnesemia Plan: Continue with taking magnesium glycinate 100 mg once daily Medications: Refilled potassium chloride ER 10 mEq PO DAILY 7 caps 0RF E87.6 - Hypokalemia Coding Level of Care Code Est Pt Level 3 (57862) Diagnoses Hypokalemia E87.6 Hypomagnesemia E83.42
[2024-01-12 12:43] VITALS: BP 120/78; PULSE 82; O2SAT 98
== END 2024-01-12 15:33 | disposition home or self-care (01) ==
PROVIDERS: PCP Internal Medicine; Visit Provider Internal Medicine
DX: E87.6 Hypokalemia (principal); E83.42 Hypomagnesemia
CPT/HCPCS: 99213

== ENCOUNTER 2024-03-01 08:39 | Outpatient (REF) | payer MEDICARE, SELFPAY ==
[2024-03-01 11:44] LABS: TSH reflex Free T4 29.97 uIU/mL (0.32-4.0)
[2024-03-01 12:15] LABS: Magnesium 0.8 mg/dL (1.6-2.6); Potassium 2.2 mmol/L (3.3-5.1)
[2024-03-01 12:20] LABS: Free T4 (Free Thyroxine) 1.06 ng/dL (0.71-1.85)
== END 2024-03-01 08:40 | disposition home or self-care (01) ==
LOC: HO.HMGCLDS 08:39
PROVIDERS: PCP Internal Medicine; Referring Provider Internal Medicine; Visit Provider Internal Medicine
DX: Z13.89 Encounter for screening for other disorder (principal)
CPT/HCPCS: 36415; 83735; 84132; 84439; 84443

== ENCOUNTER 2024-03-01 12:50 | Emergency (ER) | payer MEDICARE, SELFPAY ==
--- NOTE | ~2024-03-01 | XR_ITS ---
EXAMINATION: XR CHEST CLINICAL INFORMATION: PORT COMPARISON: None available. TECHNIQUE: Frontal view of the chest was obtained. FINDINGS: A right-sided chest wall port placement via the right IJ is present with its tip at the SVC/RA junction. Lungs are hypoinflated. There is no pneumothorax. A hiatal hernia is seen. Bibasilar atelectasis is present. XR/XR chest 1V IMPRESSION: Right-sided chest wall port in good position without complication. Electronically signed by: Jaden Tse MD 03/01/2024 04:18 PM EDT
--- NOTE | ~2024-03-01 | US_ITS ---
EXAMINATION: US ABDOMEN LIMITED CLINICAL INFORMATION: Evaluate for cholecystitis. COMPARISON: 03/01/2024 TECHNIQUE: Real-time imaging of the right upper quadrant abdominal viscera. GALLBLADDER: Normal. Gallbladder is mildly contracted, however the wall appears thickened measuring 5 mm. No cholelithiasis. Negative sonographic Padilla's sign. COMMON BILE DUCT: Normal in caliber measuring 0.6 cm in diameter. US/US abdomen limited IMPRESSION: Gallbladder is mildly contracted, however the wall appears thickened measuring 5 mm. No cholelithiasis or sonographic Padilla's sign to suggest acute cholecystitis. Electronically signed by: Tierra Guaman MD 03/01/2024 07:18 PM EDT
--- NOTE | ~2024-03-01 | CT_ITS ---
EXAMINATION: CT ABDOMEN AND PELVIS WITH CONTRAST CLINICAL INFORMATION: diarrhea x weeks , not improving COMPARISON: None available. TECHNIQUE: Multidetector volumetric images were obtained from the superior aspect of the liver through the pubic symphysis following administration 85 mL of Omnipaque 350 intravenous contrast. Sagittal and coronal reformatted images were obtained on the technologist's workstation. Oral contrast: No This CT examination was performed using dose optimization techniques as appropriate, variously including the following: *Automated exposure control *Adjustment of mA and/or kV according to patient size (this includes techniques or standardized protocols for targeted exams where dose is matched to indication/reason for exam; i.e. extremities or head) *Use of iterative reconstruction technique DLP: 530 mGy-cm FINDINGS: LUNG BASES: Large hiatal hernia. Pacemaker leads in the heart. LIVER, GALLBLADDER, AND BILIARY TREE: The liver is normal in size, shape, and attenuation. No focal hepatic lesion or biliary ductal dilatation is present. There is fluid or edema around the gallbladder. No gallstone evident in the gallbladder on CT. No bile duct dilatation. PANCREAS: Unremarkable. SPLEEN: Unremarkable. ADRENAL GLANDS: Unremarkable. KIDNEYS AND URETERS: The kidneys are normal in size, shape, and attenuation. No hydronephrosis, hydroureter, or calculi seen. No perinephric stranding. BLADDER: Unremarkable. GASTROINTESTINAL TRACT: The small and large bowel are unremarkable. The appendix is unremarkable. ABDOMINAL WALL: No significant hernia is appreciated. LYMPH NODES: Normal. VASCULAR: Atherosclerotic vascular calcifications throughout the abdomen and the pelvis. There is no aneurysm. PELVIC VISCERA: Uterus is absent. OSSEOUS STRUCTURES: Unremarkable. CT/CT abdomen pelvis w IV con IMPRESSION: 1. Large hiatal hernia. No acute abnormality of the bowel. 2. Fluid or edema around the gallbladder. No gallstone evident in the gallbladder on CT. No bile duct dilatation. Consider gallbladder ultrasound for further evaluation. Fleischner guidelines were followed. Electronically signed by: Kevin Tolentino MD 03/01/2024 04:49 PM EDT
--- NOTE | 2024-03-01 13:04 | ED_ITS ---
HPI - General Adult General Chief complaint: Recheck/Abnormal Lab/Rx Stated complaint: sent in by pcp for infusion Time Seen by Provider: 03/01/24 13:57 Source: patient Mode of arrival: ambulatory Limitations: no limitations History of Present Illness ED Provider: Glenys RAMOS HPI narrative: 68-year-old female history of hypomagnesemia, hypokalemia, pelvic fracture, sacral fracture, osteopenia, adenocarcinoma of the endometrium , carcinoma of left fallopian tube, seasonal allergies, hyperlipidemia, hypertension, hypothyroid, osteoarthritis presenting w/ abnormal labs, according to patient her potassium was 2.2 and magnesium was 0.8, she has been having diarrhea x few weeks, taking immodium w/o relief. No recent travel. She was told to come into the emergency department. Denies cp, sob, palpitations, blood in stool or vomit, abd pain, diarrhea, vision changes, weakness, nausea, fevers, chills Related Data Home Medications ?Medication ?Instructions ?Recorded ?Confirmed amlodipine 5 mg tablet 5 mg PO DAILY 12/18/23 01/12/24 lenvatinib 8 mg/day (4 mg x 2) 8 mg PO DAILY 12/18/23 01/12/24 capsule tramadol 25 mg tablet 25 mg PO Q12H PRN 12/18/23 01/12/24 pembrolizumab 25 mg/mL intravenous 200 mg IV Q3W 01/12/24 01/12/24 solution (Keytruda) Previous Rx's ?Medication ?Instructions ?Recorded cyanocobalamin (vitamin B-12) 100 100 mcg PO DAILY #90 tabs 03/17/23 mcg tablet atorvastatin 10 mg tablet 10 mg PO DAILY #90 tabs 09/21/23 cholecalciferol (vitamin D3) 50 50 mcg PO DAILY #90 caps 10/14/23 mcg (2,000 unit) capsule lisinopril 10 mg tablet 10 mg PO DAILY #90 tabs 12/18/23 magnesium glycinate 100 mg PO DAILY 7 days #7 caps 01/04/24 multivitamin with folic acid 400 1 tab PO DAILY #90 tabs 01/12/24 mcg tablet (Daily-Neeraj (with folic acid)) potassium chloride 10 mEq 10 meq PO DAILY #7 caps 01/12/24 capsule,extended release levothyroxine 100 mcg tablet 100 mcg PO .qd 90 days #90 tabs 01/27/24 Allergies Allergy/AdvReac Type Severity Reaction Status Date / Time No Known Allergies Allergy Verified 03/01/24 13:07 [No Known Allergies*] Review of Systems 2 Review of Systems: Yes all other systems are reviewed and are negative [facility] Past Medical History Attestation statement: The following information was validated with the patient. Source: old records reviewed and nursing notes reviewed Medical History Hypomagnesemia Hypokalemia Fracture of pelvis History of adenomatous polyp of colon Sacral fracture Osteopenia of multiple sites Sacral insufficiency fracture Lumbar radiculopathy, acute History of radiation therapy History of uterine cancer Abnormal mammogram of left breast Breast density Carcinoma of left fallopian tube Adenocarcinoma of endometrium, stage 1 Seasonal allergies Postmenopausal bleeding Menopause Osteopenia of lumbar spine Hyperlipidemia Osteoarthritis, knee Hypothyroidism Hypertension Surgical History H/O colonoscopy Status post total hysterectomy and bilateral salpingo-oophorectomy History of total knee arthroplasty H/O arthroscopy of right knee H/O arthroscopy of left knee H/O arthroscopic knee surgery H/O blepharoplasty Family History Family History Father Prostate cancer Heart disease Mother Diabetes mellitus Mother Skin cancer Social History Social History Housing: House Alcohol intake: never Comment: cramping Patient Tobacco Use Status: Never used Tobacco Smoked in Last 30 Days: No e-Cigarette/Vaping Use: Never Used Use of substances other than those prescribed or required for medical reasons: No Advance Directives: Yes Advance Directives on File: Yes Advance Directives Date on File: 03/04/23 Do you have a plan to hurt others: No Plan Current occupational status: retired Cognitive needs: No Hearing needs: No Vision needs: No Physical Exam ED Vital Signs: Vital Signs - 24 hr 03/01/24 13:06 03/01/24 16:37 Temperature 97.6 F Pulse Rate 94 90 Respiratory Rate 18 18 Blood Pressure 150/75 H 119/66 Pulse Oximetry 95 95 Oxygen Delivery Method Room Air Room Air BMI result Body Mass Index 28.2 vss Appearance: Alert.? Oriented X3.? No acute distress.? Head: Normocephalic, atraumatic, no step-offs or deformities Eyes: Pupils equal, round and reactive to light.? CVS: Normal heart rate and rhythm.? Pulses normal.? Respiratory: No respiratory distress.? Breath sounds normal.? Abdomen: Soft and nontender.?Normoactive bowel sounds Skin: Skin warm and dry.? Normal skin color.? Normal skin turgor.? Extremities: No lower extremity edema.? No calf ttp. 5/5 strength to bilateral upper and lower extremities Back: No midline tenderness, no C-spine tenderness, full range of motion, no CVA tenderness bilaterally Neuro: Oriented X 3.? No motor deficit.? No sensory deficit. CN 2-12 intact Course Course Course Narrative: RME performed by Andree Barbosa PA-C. Patient is a 68 year old assigned female at presenting to the emergency department after her PCP told her to come in for abnormal labs. Detailed physical exam and review of systems are deferred to the bioinformatics analyst. Labs ordered. Patient placed back in the waiting room pending room availability and results. Reevaluation(s) Reevaluation #1: CBC no acute findings needing intervention. Chemistry with low potassium 2.4 and low magnesium 0.7 also noted to have low calcium 7.5 I suspect these are all secondary to GI losses likely metabolic alkalosis. GI steady still pending. CT abdomen and pelvis still pending. Time: 15:21 Reevaluation #2: CTabd and repeat labs pending Sign out to Aryan Time: 15:47 Reevaluation #3: Repeat labs improvement in magnesium and potassium. Patient is presently asymptomatic. Patient has no abdominal pain. Ultrasound shows thickened gallbladder wall but no gallstones and negative Padilla signs. Also common bile duct is normal. Negative for elevated bili or transaminitis. Lipase normal. mild in elevation of liver enzymes. Clinically no cholecystitis. Abdominal exam benign on re-evaluation. Vital signs stable. Neuro exam normal. patient to be discharged. patient given labs and images for follow up with PCP and oncologist. Time: 22:12 Medications Administered Discontinued Medications Generic Name Dose Route Start Last Admin Trade Name Freq PRN Reason Stop Dose Admin Heparin Sodium (Porcine) 500 0 unit 03/01/24 22:25 03/01/24 22:32 unit/ Sodium Chloride 5 ml IVFLUSH 03/01/24 22:26 500 unit ONCE ONE Administration Magnesium Sulfate 2 gm in 50 mls @ 25 mls/hr 03/01/24 13:59 03/01/24 18:03 Magnesium Sulfate/H2o IV 03/01/24 15:58 Infused ONCE ONE Infusion Potassium Chloride 10 meq in 100 mls @ 100 mls/hr 03/01/24 14:00 03/01/24 17:51 Potassium Chloride/H20 IV 03/01/24 15:59 Infused Q1H LADONNA Infusion Iohexol 85 ml 03/01/24 15:47 03/01/24 15:48 Iohexol 350 Mg/Ml 75 Ml Infus..Btl IV 03/01/24 15:48 85 ml ONCE ONE Administration Potassium Chloride 40 meq 03/01/24 13:59 03/01/24 14:58 Potassium Chloride Packet 20 Meq Packet PO 03/01/24 14:00 40 meq ONCE ONE Administration Medical Decision Making Medical Decision Making MDM Narrative: 68 yo f presents w/ abnormal labs which were ordered by PCP abnml K and Mg PE benign Hx and pe concerning for hypo k and hypo mag likley due to GI losses likely metabolic alkalosis and dehydration could be due to patients lenvatinib. Will repeat labs to rule out abnormalities. Will rule out viral illness as well. Plan- labs, repletion, fluids Differential Diagnosis Differential Diagnoses: The differential diagnosis associated with the presentation includes (Hx and pe concerning for hypo k and hypo mag likley due to GI losses likely metabolic alkalosis and dehydration. Will repeat labs to rule out abnormalities. Will rule out viral illness as well. ) Admission/Observation Consideration of admission/observation: Escalation of care including admission/observation considered Lab Data [facility] Lab Attestation statement: I reviewed the patient's lab results. 03/01/24 13:21 03/01/24 19:18 Labs: Lab Results 03/01/24 03/01/24 03/01/24 Range/Units 13:21 14:22 19:18 WBC 8.0 (4.8-10.8) X10*3/uL RBC 4.02 L (4.20-5.50) X10*6/uL Hgb 13.3 (12.0-16.0) g/dl Hct 36.9 L (37.0-47.0) % MCV 91.8 (80.0-98.0) fL MCH 33.1 H (27.0-33.0) pg MCHC 36.0 H (31.0-35.0) g/dl RDW 13.2 (11.0-16.0) % Plt Count 158 L (160-400) X10*3/uL MPV 9.3 L (9.4-12.3) fL Immature Gran % (Auto) 0.4 (0.0-0.4) % Neut % (Auto) 79.8 H (45-73) % Lymph % (Auto) 11.3 L (20-40) % Berks % (Auto) 7.6 (2-11) % Eos % (Auto) 0.5 (0-4) % Baso % (Auto) 0.4 (0-2) % Lymph # (Auto) 0.9 L (1.2-4.9) X10*3/uL Berks # (Auto) 0.6 (0.1-1.2) X10*3/uL Eos # (Auto) 0.0 (0.0-0.4) X10*3/uL Baso # (Auto) 0.0 (0.0-0.2) X10*3/uL Abs Immat Gran (auto) 0.03 (0.00-0.03) X10*3/uL Absolute Neuts (auto) 6.4 (2.0-8.3) x10*3/uL Absolute Nucleated RBC 0.000 (0.0-0.012) X10*3/uL Nucleated RBC % (auto) 0.0 (0.0-0.2) /100WBC Sodium 141 140 (135-145) mmol/L Potassium 2.4 L* (3.3-5.1) mmol/L Chloride 99 (96-108) mmol/L Carbon Dioxide 29 (22-29) mmol/L Anion Gap 15 (12-20) BUN 15 (9-16) mg/dL Creatinine 0.70 (0.5-1.4) mg/dL Estim Creat Clear Calc 66.3 Estimated GFR > 60 Random Glucose 133 H (60-115) mg/dL Calcium 7.5 L D (8.4-10.2) mg/dL Magnesium 0.7 L* (1.6-2.6) mg/dL Total Bilirubin 1.0 (0.0-1.0) mg/dL AST 35 H (5-31) U/L ALT 38 H (0-31) U/L Alkaline Phosphatase 63 (39-117) U/L Total Protein 6.7 (6.5-8.0) g/dL Albumin 3.8 (3.5-5.0) g/dL Influenza Type A (PCR) NEGATIVE (Negative) Influenza Type B (PCR) NEGATIVE (Negative) RSV RNA Qual (PCR) NEGATIVE (Negative) SARS-CoV-2 RNA (RT-PCR) NEGATIVE (Negative) 03/01/24 03/01/24 03/01/24 Range/Units 19:18 19:18 19:18 WBC (4.8-10.8) X10*3/uL RBC (4.20-5.50) X10*6/uL Hgb (12.0-16.0) g/dl Hct (37.0-47.0) % MCV (80.0-98.0) fL MCH (27.0-33.0) pg MCHC (31.0-35.0) g/dl RDW (11.0-16.0) % Plt Count (160-400) X10*3/uL MPV (9.4-12.3) fL Immature Gran % (Auto) (0.0-0.4) % Neut % (Auto) (45-73) % Lymph % (Auto) (20-40) % Berks % (Auto) (2-11) % Eos % (Auto) (0-4) % Baso % (Auto) (0-2) % Lymph # (Auto) (1.2-4.9) X10*3/uL Berks # (Auto) (0.1-1.2) X10*3/uL Eos # (Auto) (0.0-0.4) X10*3/uL Baso # (Auto) (0.0-0.2) X10*3/uL Abs Immat Gran (auto) (0.00-0.03) X10*3/uL Absolute Neuts (auto) (2.0-8.3) x10*3/uL Absolute Nucleated RBC (0.0-0.012) X10*3/uL Nucleated RBC % (auto) (0.0-0.2) /100WBC Sodium 141 (135-145) mmol/L Potassium 3.3 D 3.3 (3.3-5.1) mmol/L Chloride 101 102 (96-108) mmol/L Carbon Dioxide 28 (22-29) mmol/L Anion Gap (12-20) BUN (9-16) mg/dL Creatinine (0.5-1.4) mg/dL Estim Creat Clear Calc Estimated GFR Random Glucose (60-115) mg/dL Calcium (8.4-10.2) mg/dL Magnesium (1.6-2.6) mg/dL Total Bilirubin (0.0-1.0) mg/dL AST (5-31) U/L ALT (0-31) U/L Alkaline Phosphatase (39-117) U/L Total Protein (6.5-8.0) g/dL Albumin (3.5-5.0) g/dL Influenza Type A (PCR) (Negative) Influenza Type B (PCR) (Negative) RSV RNA Qual (PCR) (Negative) SARS-CoV-2 RNA (RT-PCR) (Negative) 03/01/24 03/01/24 03/01/24 Range/Units 19:18 19:18 19:18 WBC (4.8-10.8) X10*3/uL RBC (4.20-5.50) X10*6/uL Hgb (12.0-16.0) g/dl Hct (37.0-47.0) % MCV (80.0-98.0) fL MCH (27.0-33.0) pg MCHC (31.0-35.0) g/dl RDW (11.0-16.0) % Plt Count (160-400) X10*3/uL MPV (9.4-12.3) fL Immature Gran % (Auto) (0.0-0.4) % Neut % (Auto) (45-73) % Lymph % (Auto) (20-40) % Berks % (Auto) (2-11) % Eos % (Auto) (0-4) % Baso % (Auto) (0-2) % Lymph # (Auto) (1.2-4.9) X10*3/uL Berks # (Auto) (0.1-1.2) X10*3/uL Eos # (Auto) (0.0-0.4) X10*3/uL Baso # (Auto) (0.0-0.2) X10*3/uL Abs Immat Gran (auto) (0.00-0.03) X10*3/uL Absolute Neuts (auto) (2.0-8.3) x10*3/uL Absolute Nucleated RBC (0.0-0.012) X10*3/uL Nucleated RBC % (auto) (0.0-0.2) /100WBC Sodium (135-145) mmol/L Potassium (3.3-5.1) mmol/L Chloride (96-108) mmol/L Carbon Dioxide 28 (22-29) mmol/L Anion Gap 14 14 (12-20) BUN 10 10 (9-16) mg/dL Creatinine 0.56 (0.5-1.4) mg/dL Estim Creat Clear Calc Estimated GFR Random Glucose (60-115) mg/dL Calcium (8.4-10.2) mg/dL Magnesium (1.6-2.6) mg/dL Total Bilirubin (0.0-1.0) mg/dL AST (5-31) U/L ALT (0-31) U/L Alkaline Phosphatase (39-117) U/L Total Protein (6.5-8.0) g/dL Albumin (3.5-5.0) g/dL Influenza Type A (PCR) (Negative) Influenza Type B (PCR) (Negative) RSV RNA Qual (PCR) (Negative) SARS-CoV-2 RNA (RT-PCR) (Negative) 03/01/24 03/01/24 03/01/24 Range/Units 19:18 19:18 19:18 WBC (4.8-10.8) X10*3/uL RBC (4.20-5.50) X10*6/uL Hgb (12.0-16.0) g/dl Hct (37.0-47.0) % MCV (80.0-98.0) fL MCH (27.0-33.0) pg MCHC (31.0-35.0) g/dl RDW (11.0-16.0) % Plt Count (160-400) X10*3/uL MPV (9.4-12.3) fL Immature Gran % (Auto) (0.0-0.4) % Neut % (Auto) (45-73) % Lymph % (Auto) (20-40) % Berks % (Auto) (2-11) % Eos % (Auto) (0-4) % Baso % (Auto) (0-2) % Lymph # (Auto) (1.2-4.9) X10*3/uL Berks # (Auto) (0.1-1.2) X10*3/uL Eos # (Auto) (0.0-0.4) X10*3/uL Baso # (Auto) (0.0-0.2) X10*3/uL Abs Immat Gran (auto) (0.00-0.03) X10*3/uL Absolute Neuts (auto) (2.0-8.3) x10*3/uL Absolute Nucleated RBC (0.0-0.012) X10*3/uL Nucleated RBC % (auto) (0.0-0.2) /100WBC Sodium (135-145) mmol/L Potassium (3.3-5.1) mmol/L Chloride (96-108) mmol/L Carbon Dioxide (22-29) mmol/L Anion Gap (12-20) BUN (9-16) mg/dL Creatinine 0.57 (0.5-1.4) mg/dL Estim Creat Clear Calc 82.9 81.3 Estimated GFR > 60 > 60 Random Glucose 97 (60-115) mg/dL Calcium (8.4-10.2) mg/dL Magnesium (1.6-2.6) mg/dL Total Bilirubin (0.0-1.0) mg/dL AST (5-31) U/L ALT (0-31) U/L Alkaline Phosphatase (39-117) U/L Total Protein (6.5-8.0) g/dL Albumin (3.5-5.0) g/dL Influenza Type A (PCR) (Negative) Influenza Type B (PCR) (Negative) RSV RNA Qual (PCR) (Negative) SARS-CoV-2 RNA (RT-PCR) (Negative) 03/01/24 03/01/24 03/01/24 Range/Units 19:18 19:18 19:18 WBC (4.8-10.8) X10*3/uL RBC (4.20-5.50) X10*6/uL Hgb (12.0-16.0) g/dl Hct (37.0-47.0) % MCV (80.0-98.0) fL MCH (27.0-33.0) pg MCHC (31.0-35.0) g/dl RDW (11.0-16.0) % Plt Count (160-400) X10*3/uL MPV (9.4-12.3) fL Immature Gran % (Auto) (0.0-0.4) % Neut % (Auto) (45-73) % Lymph % (Auto) (20-40) % Berks % (Auto) (2-11) % Eos % (Auto) (0-4) % Baso % (Auto) (0-2) % Lymph # (Auto) (1.2-4.9) X10*3/uL Berks # (Auto) (0.1-1.2) X10*3/uL Eos # (Auto) (0.0-0.4) X10*3/uL Baso # (Auto) (0.0-0.2) X10*3/uL Abs Immat Gran (auto) (0.00-0.03) X10*3/uL Absolute Neuts (auto) (2.0-8.3) x10*3/uL Absolute Nucleated RBC (0.0-0.012) X10*3/uL Nucleated RBC % (auto) (0.0-0.2) /100WBC Sodium (135-145) mmol/L Potassium (3.3-5.1) mmol/L Chloride (96-108) mmol/L Carbon Dioxide (22-29) mmol/L Anion Gap (12-20) BUN (9-16) mg/dL Creatinine (0.5-1.4) mg/dL Estim Creat Clear Calc Estimated GFR Random Glucose 97 (60-115) mg/dL Calcium 7.6 L 7.5 L (8.4-10.2) mg/dL Magnesium 1.7 (1.6-2.6) mg/dL Total Bilirubin 0.8 0.8 (0.0-1.0) mg/dL AST 33 H (5-31) U/L ALT (0-31) U/L Alkaline Phosphatase (39-117) U/L Total Protein (6.5-8.0) g/dL Albumin (3.5-5.0) g/dL Influenza Type A (PCR) (Negative) Influenza Type B (PCR) (Negative) RSV RNA Qual (PCR) (Negative) SARS-CoV-2 RNA (RT-PCR) (Negative) 03/01/24 03/01/24 03/01/24 Range/Units 19:18 19:18 19:18 WBC (4.8-10.8) X10*3/uL RBC (4.20-5.50) X10*6/uL Hgb (12.0-16.0) g/dl Hct (37.0-47.0) % MCV (80.0-98.0) fL MCH (27.0-33.0) pg MCHC (31.0-35.0) g/dl RDW (11.0-16.0) % Plt Count (160-400) X10*3/uL MPV (9.4-12.3) fL Immature Gran % (Auto) (0.0-0.4) % Neut % (Auto) (45-73) % Lymph % (Auto) (20-40) % Berks % (Auto) (2-11) % Eos % (Auto) (0-4) % Baso % (Auto) (0-2) % Lymph # (Auto) (1.2-4.9) X10*3/uL Berks # (Auto) (0.1-1.2) X10*3/uL Eos # (Auto) (0.0-0.4) X10*3/uL Baso # (Auto) (0.0-0.2) X10*3/uL Abs Immat Gran (auto) (0.00-0.03) X10*3/uL Absolute Neuts (auto) (2.0-8.3) x10*3/uL Absolute Nucleated RBC (0.0-0.012) X10*3/uL Nucleated RBC % (auto) (0.0-0.2) /100WBC Sodium (135-145) mmol/L Potassium (3.3-5.1) mmol/L Chloride (96-108) mmol/L Carbon Dioxide (22-29) mmol/L Anion Gap (12-20) BUN (9-16) mg/dL Creatinine (0.5-1.4) mg/dL Estim Creat Clear Calc Estimated GFR Random Glucose (60-115) mg/dL Calcium (8.4-10.2) mg/dL Magnesium (1.6-2.6) mg/dL Total Bilirubin (0.0-1.0) mg/dL AST 33 H (5-31) U/L ALT 37 H 40 H (0-31) U/L Alkaline Phosphatase 77 78 (39-117) U/L Total Protein 6.8 (6.5-8.0) g/dL Albumin (3.5-5.0) g/dL Influenza Type A (PCR) (Negative) Influenza Type B (PCR) (Negative) RSV RNA Qual (PCR) (Negative) SARS-CoV-2 RNA (RT-PCR) (Negative) 03/01/24 03/01/24 Range/Units 19:18 19:18 WBC (4.8-10.8) X10*3/uL RBC (4.20-5.50) X10*6/uL Hgb (12.0-16.0) g/dl Hct (37.0-47.0) % MCV (80.0-98.0) fL MCH (27.0-33.0) pg MCHC (31.0-35.0) g/dl RDW (11.0-16.0) % Plt Count (160-400) X10*3/uL MPV (9.4-12.3) fL Immature Gran % (Auto) (0.0-0.4) % Neut % (Auto) (45-73) % Lymph % (Auto) (20-40) % Berks % (Auto) (2-11) % Eos % (Auto) (0-4) % Baso % (Auto) (0-2) % Lymph # (Auto) (1.2-4.9) X10*3/uL Berks # (Auto) (0.1-1.2) X10*3/uL Eos # (Auto) (0.0-0.4) X10*3/uL Baso # (Auto) (0.0-0.2) X10*3/uL Abs Immat Gran (auto) (0.00-0.03) X10*3/uL Absolute Neuts (auto) (2.0-8.3) x10*3/uL Absolute Nucleated RBC (0.0-0.012) X10*3/uL Nucleated RBC % (auto) (0.0-0.2) /100WBC Sodium (135-145) mmol/L Potassium (3.3-5.1) mmol/L Chloride (96-108) mmol/L Carbon Dioxide (22-29) mmol/L Anion Gap (12-20) BUN (9-16) mg/dL Creatinine (0.5-1.4) mg/dL Estim Creat Clear Calc Estimated GFR Random Glucose (60-115) mg/dL Calcium (8.4-10.2) mg/dL Magnesium (1.6-2.6) mg/dL Total Bilirubin (0.0-1.0) mg/dL AST (5-31) U/L ALT (0-31) U/L Alkaline Phosphatase (39-117) U/L Total Protein 6.8 (6.5-8.0) g/dL Albumin 3.8 3.8 (3.5-5.0) g/dL Influenza Type A (PCR) (Negative) Influenza Type B (PCR) (Negative) RSV RNA Qual (PCR) (Negative) SARS-CoV-2 RNA (RT-PCR) (Negative) Independent Interpretation I performed an independent interpretation of an: EKG (Vent. Rate : 094 BPM Atrial Rate : 094 BPM P-R Int : 138 ms QRS Dur : 074 ms QT Int : 358 ms P-R-T Axes : 030 003 074 degrees QTc Int : 447 ms Normal sinus rhythm Cannot rule out Anterior infarct , age undetermined Abnormal ECG When compared with ECG of 23-FEB-2018 15:) Radiology Impression Discussion of test interpretation with radiology: I have reviewed the radiologist's reading. External Record Review External record reviewed: Inpatient record, Office record, Outpatient record, Prior outpatient labs, Prior outpatient radiology, Primary care record and Outside ED record Chronic Conditions Patient?s care impacted by: Other (see hpi ) Critical Care Time Critical Care Time Critical Care Time: Yes Total Critical Care Time: 35 Attestation: I attest to this time spent taking care of the patient, obtaining history, physical, reviewing labs, imaging, treatment of patients condition +/- specialist/hospitalist consult Discharge Plan Discharge Clinical Impression: Diarrhea, Hypokalemia, Hypomagnesemia Patient Disposition: Home, Self-Care Instructions: Hypokalemia (ED), Hypomagnesemia (ED) Additional Instructions: Recommend follow-up with your primary care provider. Your low potassium/low magnesium resolved. Recommend follow-up with the primary care provider. Return to the ED immediately for any chest pain, shortness of breath, abdominal pain, fever, chills, severe diarrhea, blood in stool, dysuria, hematuria, tremors, weakness, nausea, vomiting, or any other concerning symptoms. TECHNIQUE: Real-time imaging of the right upper quadrant abdominal viscera. GALLBLADDER: Normal. Gallbladder is mildly contracted, however the wall appears thickened measuring 5 mm. No cholelithiasis. Negative sonographic Padilla's sign. COMMON BILE DUCT: Normal in caliber measuring 0.6 cm in diameter. US/US abdomen limited IMPRESSION: Gallbladder is mildly contracted, however the wall appears thickened measuring 5 mm. No cholelithiasis or sonographic Padilla's sign to suggest acute cholecystitis. Electronically signed by: Tierra Guaman MD 03/01/2024 07:18 PM EDT XR/XR chest 1V IMPRESSION: Right-sided chest wall port in good position without complication. Electronically signed by: Jaden Tse MD 03/01/2024 04:18 PM EDT Prescriptions: No Action cyanocobalamin (vitamin B-12) 100 mcg tablet 100 mcg PO DAILY Qty: 90 1RF atorvastatin 10 mg tablet 10 mg PO DAILY Qty: 90 1RF cholecalciferol (vitamin D3) 50 mcg (2,000 unit) capsule 50 mcg PO DAILY Qty: 90 1RF magnesium glycinate 100 mg magnesium capsule 100 mg PO DAILY 7 Days Qty: 7 0RF multivitamin with folic acid [Daily-Neeraj (with folic acid)] 400 mcg tablet 1 tab PO DAILY Qty: 90 1RF levothyroxine 100 mcg tablet 100 mcg PO .qd 90 Days Qty: 90 1RF Rx Instructions: Alternating with 88mcg Keytruda 25 mg/mL solution 200 mg IV Q3W Rx Instructions: administer over 30 mins potassium chloride 10 mEq capsule, extended release 10 meq PO DAILY Qty: 7 0RF lenvatinib 8 mg/day (4 mg x 2) capsule 8 mg PO DAILY amlodipine 5 mg tablet 5 mg PO DAILY tramadol 25 mg tablet 25 mg PO Q12H PRN lisinopril 10 mg tablet 10 mg PO DAILY Qty: 90 1RF Interventions: ED Discharge Assessment Last Done: 03/01/24 22:39 Discharge Date/Time: 03/01/24 22:40 Print Language: Occitan
[2024-03-01 13:06] VITALS: BP 150/75; PULSE 94; RESP 18; TEMP 36.4; O2SAT 95; BMI 28.2
--- NOTE | 2024-03-01 13:06 | ECG_ITS ---
Test Reason : electrolyte abnormality Blood Pressure : / mmHG Vent. Rate : 094 BPM Atrial Rate : 094 BPM P-R Int : 138 ms QRS Dur : 074 ms QT Int : 358 ms P-R-T Axes : 030 003 074 degrees QTc Int : 447 ms Normal sinus rhythm Cannot rule out Anterior infarct , age undetermined Nonspecific T wave abnormality Abnormal ECG When compared with ECG of 23-FEB-2018 15:17, Nonspecific T wave abnormality now evident in Anterolateral leads Referred By: Andree Barbosa Electronically Signed By:WOODY SCHROEDER
[2024-03-01 13:25] LABS: MANUAL DIFF FLAG NO
[2024-03-01 13:27] LABS: Basophils Percent Auto 0.4 % (0-2); Eosinophils Percent Auto 0.5 % (0-4); Hematocrit 36.9 % (37.0-47.0); Hemoglobin 13.3 g/dl (12.0-16.0); Imm Gran Abs Auto 0.03 X10*3/uL (0.00-0.03); Imm Gran Pct Auto 0.4 % (0.0-0.4); Lymphocytes Absolute Auto 0.9 X10*3/uL (1.2-4.9); Lymphocytes Percent Auto 11.3 % (20-40); Mean Corpuscular Hemoglobin 33.1 pg (27.0-33.0); Mean Corpuscular Volume 91.8 fL (80.0-98.0); Mean Platelet Volume 9.3 fL (9.4-12.3); Monocytes Absolute Auto 0.6 X10*3/uL (0.1-1.2); Monocytes Percent Auto 7.6 % (2-11); Neutrophils Absolute Auto 6.4 x10*3/uL (2.0-8.3); Neutrophils Percent Auto 79.8 % (45-73); Platelet Count 158 X10*3/uL (160-400); Red Blood Count 4.02 X10*6/uL (4.20-5.50); Red Cell Distribution Width 13.2 % (11.0-16.0)
[2024-03-01 14:03] LABS: Alanine Aminotransferase 38 U/L (0-31); Albumin Level 3.8 g/dL (3.5-5.0); Alkaline Phosphatase 63 U/L (39-117); Anion Gap 15 (12-20); Aspartate Amino Transferase 35 U/L (5-31); Blood Urea Nitrogen 15 mg/dL (9-16); Calcium 7.5 mg/dL (8.4-10.2); Carbon Dioxide 29 mmol/L (22-29); Chloride 99 mmol/L (96-108); Creatinine Clr Calc Pharmacy 66.3; Estimated Glomerular Filt Rate > 60; Glucose Random 133 mg/dL (60-115); Sodium 141 mmol/L (135-145); Total Protein 6.7 g/dL (6.5-8.0)
[2024-03-01 14:06] LABS: Magnesium 0.7 mg/dL (1.6-2.6); Potassium 2.4 mmol/L (3.3-5.1)
[2024-03-01] MEDS: Potassium Chloride Packet 20 MEQ PACKET 40 MEQ PO (14:58)
--- NOTE | 2024-03-01 15:01 | PC.NURSE ---
Pt presents to ED from home, reports she had a call from her doctor telling her to go to ER due to abnormal labs- low mag and potassium. Pt reports multiple weeks of diarrhea due to a medication they put her on (unsure of name). Denies cp, sob, or any pain/ changes. Alert and oriented, breathing even and unlabored, skin warm and dry.
--- NOTE | 2024-03-01 15:03 | PC.NURSE ---
Awaiting x-ray to access pts port.
[2024-03-01 15:05] LABS: Influenza A PCR NEGATIVE (Negative); Influenza B PCR NEGATIVE (Negative); Resp Syncy Virus RNA Qual PCR NEGATIVE (Negative); SARS COV2 PCR INHOUSE NEGATIVE (Negative)
[2024-03-01] MEDS: iohexoL 350 MG/ML 75 ML INFUS..BTL 85 ML IV (15:48)
[2024-03-01] MEDS: Magnesium Sulfate/H2O 2 GM/50 ML PIGGYBACK IV (16:01)
[2024-03-01] MEDS: Potassium Chloride/H20 10 MEQ/100 ML PIGGYBACK 100 MEQ IV ×2 (16:02→16:53)
--- NOTE | 2024-03-01 16:08 | PC.NURSE ---
Port accessed on right chest with no issues. Meds infusing
[2024-03-01 16:37] VITALS: BP 119/66; PULSE 90; RESP 18; O2SAT 95
--- NOTE | 2024-03-01 19:30 | PC.NURSE ---
Assumed care of pt. Pt lying on stretcher, no acute distress at this time./
[2024-03-01 19:59] LABS: Alanine Aminotransferase 40 U/L (0-31); Albumin Level 3.8 g/dL (3.5-5.0); Alkaline Phosphatase 78 U/L (39-117); Anion Gap 14 (12-20); Aspartate Amino Transferase 33 U/L (5-31); Bilirubin Total 0.8 mg/dL (0.0-1.0); Blood Urea Nitrogen 10 mg/dL (9-16); Calcium 7.5 mg/dL (8.4-10.2); Carbon Dioxide 28 mmol/L (22-29); Chloride 102 mmol/L (96-108); Creatinine Clr Calc Pharmacy 81.3; Estimated Glomerular Filt Rate > 60; Glucose Random 97 mg/dL (60-115); Magnesium 1.7 mg/dL (1.6-2.6); Potassium 3.3 mmol/L (3.3-5.1); Sodium 141 mmol/L (135-145); Total Protein 6.8 g/dL (6.5-8.0)
[2024-03-01 20:00] LABS: Albumin Level 3.8 g/dL (3.5-5.0); Alkaline Phosphatase 77 U/L (39-117); Anion Gap 14 (12-20); Aspartate Amino Transferase 33 U/L (5-31); Bilirubin Total 0.8 mg/dL (0.0-1.0); Blood Urea Nitrogen 10 mg/dL (9-16); Calcium 7.6 mg/dL (8.4-10.2); Carbon Dioxide 28 mmol/L (22-29); Chloride 101 mmol/L (96-108); Creatinine Clr Calc Pharmacy 82.9; Estimated Glomerular Filt Rate > 60; Glucose Random 97 mg/dL (60-115); Potassium 3.3 mmol/L (3.3-5.1); Sodium 140 mmol/L (135-145); Total Protein 6.8 g/dL (6.5-8.0)
[2024-03-01 20:43] LABS: Alanine Aminotransferase 37 U/L (0-31)
[2024-03-01 22:25] VITALS: BP 141/77; PULSE 93; RESP 17; TEMP 36.7; O2SAT 96
[2024-03-01 22:39] VITALS: BP 141/77; PULSE 93; RESP 17; TEMP 36.7; O2SAT 96
== END 2024-03-01 22:40 | disposition home or self-care (01) ==
PROVIDERS: Physician Assistant; Physician Assistant Medical; Emergency Provider Emergency Medicine Emergency Medical Services; PCP Internal Medicine
DX: E87.6 Hypokalemia (principal); E83.42 Hypomagnesemia; R19.7 Diarrhea, unspecified; C54.1 Malignant neoplasm of endometrium; Z79.899 Other long term (current) drug therapy; Z03.818 Encounter for observation for suspected exposure to other biological agents ruled out
CPT/HCPCS: 0241U; 36415; 71045; 74177; 76705; 80053; 83735; 84132; 84439; 84443; 85025; 93005; 96365; 96366; 96375; 99285; J1642; J3475; J3480; Q9967

== ENCOUNTER 2024-03-17 09:00 | Outpatient (RCR) | payer MEDICARE, SELFPAY ==
--- NOTE | 2024-01-06 10:57 | MHC.PT.EP ---
[facility] [place] [facility] [place] [facility] [place] [facility] [address] Fito Khan [address] [phone] F: [phone] F: [phone] F: [phone] F: [phone] Physical Therapy Plan of Care Date of Evaluation: 01/06/24 Date of Surgery: Diagnosis: R leg pain, strength and gait training. Assessment: Patient is a 68 year old R handed female who presents with s/s consistent with R leg pain, strength and gait training. She does not work but likes to stay active and home and running errands as needed. Patient past medical history includes cancer, back pain, OA, hysterectomy. Current impairments include pain, gait mechanics, ROM, strength, activity tolerance and functional mobility. Functional limitations include decreased ability to walk, stand, drive, get out into the community and perform standing activities around the home or yard. Patient is motivated with good rehab potential. Skilled PT will address impairments and functional limitations in order to achieve goals. 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 Manual therapy to restore motion and function. Therapeutic exercise to improve strength and flexibility. Neuromuscular re-education for posture and balance. Therapeutic activities to return to functional activities of daily living. Electronically signed by: Tono Perkins, PT Please sign and return to therapist. Thank you for your referral.
--- NOTE | 2024-07-07 10:20 | MHC.PT.DC ---
[facility] [place] Office [place] Office [place] Office [address] Fito Khan [address] [phone] F: [phone] F: [phone] F: [phone] F: [phone] Physical Therapy Discharge Report Diagnosis: R leg pain, strength and gait training. Date of Surgery: Date of Evaluation: 01/06/24 Date of Discharge: 04/08/24 Treatments to Date: 11 Cancellations to Date: No Shows to Date: Discharge Status: Improved Function Independent with HEP Discharge Summary: 03/17/24: I with HEP. AROM flexion to 111, ER to 38. Stairs step through. Amb with SPC or no cane with steady mechanics. Max pain 2/10 with daily activities. LEFS 59/80. Strength 4/5 grossly. We will d/c to HEP at this time. 03/10/24: pt progressing well. gait mechanics much improved and symmetrical at this time with SPC in L UE. pt has tolerated strength progression well throughout PT. 1 more visit then d/c to HEP . 03/03/24: pt progressing well overall with skilled PT. no adverse reactions from above. amb safely in clinic with SPC. There are no safety concerns and she was encouraged to continue with cane outside and in home environment. 02/24; Pt amb with good form with sc. Pt progressing with balance and strength.Pt fatigued s/l aabd. NV review stairs.02/17; Pt abd s/l 30 degrees due to weakness. SLR were a challenge. NV gait with sc. 02/03/24: pt progressing well with skilled PT. we have been able to progress steadily. no adverse reactions. 01/30/24: pt progressing well with skilled PT. improved strength. cane gait mechanics required min cues today. 01/23/24: reduced cues, good carryover. reduced s/s with daily activities. 01/21/24: pt progressing well with skilled PT. no adverse reactions from above program. challenged with strength and balance. continue to progress as tolerated. 01/14; Pt amb with proper technique with sc. Pt challenged with foam no eyes with balance ecs. Pt hip flexion limited with marching. 01/13/24: pt progressing well with skilled PT. no adverse reactions. added strength and balance. no adverse reactions. Patient is a 68 year old R handed female who presents with s/s consistent with R leg pain, strength and gait training. She does not work but likes to stay active and home and running errands as needed. Patient past medical history includes cancer, back pain, OA, hysterectomy. Current impairments include pain, gait mechanics, ROM, strength, activity tolerance and functional mobility. Functional limitations include decreased ability to walk, stand, drive, get out into the community and perform standing activities around the home or yard. Patient is motivated with good rehab potential. Skilled PT will address impairments and functional limitations in order to achieve goals. Electronically signed by: Tono Perkins, PT Please sign and return to therapist. Thank you for your referral.
== END 2024-07-07 10:21 | disposition home or self-care (01) ==
LOC: HO.PTCHIC 09:00
PROVIDERS: PCP Internal Medicine; Visit Provider Internal Medicine
DX: S32.9XXD Fracture of unspecified parts of lumbosacral spine and pelvis, subsequent encounter for fracture with routine healing (principal)
CPT/HCPCS: 97110; 97112; 97116; 97163

== ENCOUNTER 2024-04-03 07:45 | Outpatient (REF) | payer MEDICARE, SELFPAY ==
[2024-04-03 12:12] LABS: Free T4 (Free Thyroxine) 0.89 ng/dL (0.71-1.85); Thyroid Stimulating Hormone 45.42 uIU/mL (0.32-4.0)
[2024-04-05 06:33] LABS: Triiodothyronine T3 Free 1.9 pg/mL (2.3-4.2)
== END 2024-04-03 07:46 | disposition home or self-care (01) ==
LOC: HO.HMGCLDS 07:45
PROVIDERS: PCP Internal Medicine; Visit Provider Internal Medicine
DX: E03.9 Hypothyroidism, unspecified (principal)
CPT/HCPCS: 36415; 84439; 84443; 84481

== ENCOUNTER 2024-04-08 09:26 | Outpatient (AMB) | payer MEDICARE, SELFPAY ==
--- NOTE | 2024-04-08 09:51 | A.OFFVIS_ITS ---
Intake Vital Signs 04/08/24 09:52 Height 5 ft 1.5 in Weight 150 lb BMI 27.9 BP 138/74 Blood Pressure Location Rt brachial Position Sitting Pulse 92 Pulse Source Pulse Oximeter Pulse Oximetry (%) 98 Oxygen Delivery Method Room Air Intake Visit Reasons: SWV G0439 Intake Note: Pt is here today for her SWV: Last mammogram 05/19/23, colonoscopy 03/06/16 Allergies No Known Allergies [No Known Allergies*] Allergy (Verified 04/08/24 10:09) Medication List - Last Reconciled 04/08/24 by Shantell Kilpatrick MD amlodipine 5 mg PO DAILY atorvastatin 10 mg PO DAILY biotin (Hair, Skin and Nails (biotin)) mcg PO cholecalciferol (vitamin D3) 50 mcg PO DAILY cyanocobalamin (vitamin B-12) 100 mcg PO DAILY lenvatinib 8 mg PO DAILY levothyroxine 100 mcg PO .qd 90 days lisinopril 10 mg PO DAILY loratadine (Allergy Relief (loratadine)) 10 mg PO DAILY magnesium glycinate 100 mg PO DAILY 7 days multivitamin with folic acid 400 mcg (Daily-Neeraj (with folic acid)) 1 tab PO DAILY pembrolizumab (Keytruda) 200 mg IV Q3W potassium chloride ER 10 mEq PO DAILY HPI SWV G0439 HPI Details SWV G0439 HPI Details SWV ? 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 She perez d recurrence in with an abdomin al wall mass and r ecently started on Keytruda and VEGF inhibitor, which she started taking since October of 2023 , has seasonal all ergies, hyperlipid emia, hypothyroidi sm and hypertensio n, presents today for her subsequent annual wellness visit . She is up -to-date with her screening mammogra m, goes to [facility], last done earlier this year and is s cheduled for routi ne screening mammo gram later in Dece mber this year she is overdue for he r bone density sca n. She has histor y of adenomatous p olyps in the past as seen on previou s colonoscopy 03/[address] Ramos, has not ye t had her repeat c olonoscopy done, a dvised not to get it done yet by her oncologist due to recent radiation treatment for her uterine cancer. She is up-to-d ate with her pneum onia vaccination a nd Shingrix vaccin e as well as Tdap. Reminded to get her COVID booster and flu vaccine. She had a recent f asting lipid panel and fasting blood sugar screening d one 02/24/2023 whic h showed slightly elevated fasting glucose at 105 mg/ dL, as well as hig her triglycerides and LDL cholestero l compared to last check. ? Medical / Socia l History Reviewed ? Past Medical His tory ?Yes . ? [place] of Care / Care T eam list updated ? Yes . ? Surgical/Hosp italization Histo ry ?Yes . ? Current M edications (inclu ding OTC and suppl ements) ?Yes . ? Fami ly History ?Yes . ? Tobacco Control f orm ?Yes . ? AUDIT-C (Alcohol use) form ?Yes . ? Illicit dr ug use in Social History ?Yes . ? Curr ent diagnosis of depression? ?No ? Shashi ropriate PHQ2/PHQ9 completed ?Yes . ? Data entered by ?Steph Oliva and reviewed by alexis ch ? Fall Risk ? Fal l History? Have y ou had any falls w ith injury in the past year? ?No . ? H ave you had two or more falls in th e past year? ?No . ? Fall Risk Assessme nt: ?No falls in the past year . ? HRA filled out by the [facility], reviewed by Pro whitley and scanned. ? SWV ? Balance? Romb erg ?Yes . ? Tandem w alk ?Yes . ? Walk and Turn ?Yes . ? Rise from sit to stand ?Ye s . ?Vision ? C orrective lens ?n one ? Vision screen ? Up-to-date, goes [facility], sees Dr. Vinny hussein ?Hear ing? Whisper test ?p ass . ?Writ ten Plan?Complete d. See Patient Do cuments.? HPI Comments History of Present Illness Details Patient with the acquired hypothyroidism, with recent TSH elevated and free T4 at low normal levels. Patient does complain of some fatigue issues but no dry skin, no alteration in bowel habits. She is currently getting chemotherapy for her uterine cancer which could affect her thyroid levels. Advised to increase her levothyroxine dose to 100 mcg taken once a day in a.m.. [facility] Medical History (Updated 04/08/24 @ 10:38 by Shantell Kilpatrick MD) Hypomagnesemia Hypokalemia Fracture of pelvis History of adenomatous polyp of colon Sacral fracture Osteopenia of multiple sites Sacral insufficiency fracture Lumbar radiculopathy, acute History of radiation therapy History of uterine cancer Abnormal mammogram of left breast Breast density Carcinoma of left fallopian tube Adenocarcinoma of endometrium, stage 1 Seasonal allergies Postmenopausal bleeding Menopause Osteopenia of lumbar spine Hyperlipidemia Osteoarthritis, knee Hypothyroidism Hypertension Surgical History H/O colonoscopy Status post total hysterectomy and bilateral salpingo-oophorectomy History of total knee arthroplasty H/O arthroscopy of right knee H/O arthroscopy of left knee H/O arthroscopic knee surgery H/O blepharoplasty Family History Father Prostate cancer Heart disease Mother Diabetes mellitus Mother Skin cancer Social History Housing: House Alcohol intake: never Comment: cramping Patient Tobacco Use Status: Never used Tobacco e-Cigarette/Vaping Use: Never Used Advance Directives Date on File: 03/04/23 Current occupational status: retired Cognitive needs: No Hearing needs: No Vision needs: No Questionnaire Medicare Wellness Checkup [age] What gender do you identify with?: female During the past 4 weeks, how much have you been bothered by emotional problems such as feeling anxious, depressed, irritable, sad or downhearted, and blue?: not at all During the past 4 weeks, has your physical & emotional health limited your social activities with family, friends, neighbors, or groups?: not at all During the past 4 weeks, how much bodily pain have you generally had?: very mild pain During the past 4 weeks, was someone available to help you if you needed & wanted help?: no, not at all During the past 4 weeks, what was the hardest physical activity you could do for at least 2 minutes?: moderate Can you get to places out of walking distance without help? (For eg., can you travel alone on buses, taxis or drive your car?): Yes Can you go shopping for groceries or clothes without someone's help?: Yes Can you prepare your own meals?: Yes Can you do your housework without help?: Yes Because of any health problems, do you need the help of another person with your personal care needs such as eating, bathing, dressing or getting around the house?: No Can you handle your own money without help?: Yes During the past 4 weeks, how would you rate your health in general?: good During the past 4 weeks how have things been going for you?: good & bad parts about equal Are you having difficulties driving your car?: no Do you always fasten your seat belt when you are in a car?: yes, usually During past 4 weeks, have you been bothered by the following: never: Falling or dizzy when standing up, Sexual problems?, Trouble eating well?, Teeth or denture problems? and Problems using the telephone? and seldom: Tiredness or fatigue? Have you fallen 2 or more times in the past year?: Yes Are you afraid of falling?: No Are you a smoker?: no During the past 4 weeks, how many drinks of wine, beer, or other alcoholic beverages did you have?: no alcohol at all Do you exercise for about 20 minutes 3 or more times a week?: yes, some of the time Have you been given information to help with the following?: yes: Hazards in your house that might hurt you? and no: Keeping track of your medications? How often do you have trouble taking medicines the way you have been told to take them?: I always take medicine as prescribed How confident are you that you can control & manage most of your health problems?: very confident What is your race?: White Mini Mental State Exam (MMSE) Orientation What is the (year) (season) (date) (day) (month)?: year (2023), season (Fall), date (04/08/2024), day () and month (March) Where are we (state) (county) (town or city) (hospital) (floor)?: state ([place]), county ([place]), town or city ([place]) and hospital/clinic ([facility]) Score Score: 9 Activity of Daily Living Bathing - sponge bath, tub bath or shower: receives no assistance (gets in/out by self, if usual bathing means Dressing - getting clothes from closets & drawers, including inner/outer garments & fasteners.: gets clothes & gets completely dressed without help Toileting - going to the 'toilet room' for urine/bowel elimination & cleaning self/arranging clothes: goes to toilet room, cleans self, arranges clothes without help Transfer: moves in & out of bed and chair without help (may use support object) Continence: has occasional 'accidents' Feeding: feeds self without help Total Score: 0 Information obtained from: patient Using telephone: independent Traveling: independent Shopping: independent Preparing meals: independent Housework: independent Taking medicine: independent Managing money: independent PHQ-9 Over the last 2 weeks, how often have you been bothered by any of the following problems? 1. Little interest or pleasure in doing things: not at all 2. Feeling down, depressed, or hopeless: not at all 3. Trouble falling or staying asleep, or sleeping too much: several days 4. Feeling tired or having little energy: not at all 5. Poor appetite or overeating: not at all 6. Feeling bad about yourself - or that you are a failure or have let yourself or your family down: not at all 7. Trouble concentrating on things, such as reading the newspaper or watching television: not at all 8. Moving or speaking so slowly that other people could have noticed. Or the opposite - being so fidgety or restless that you have been moving around a lot more than usual: not at all 9. Thoughts that you would be better off or of hurting yourself in some way: not at all Total score: 1 Depression Screening Interpretation: Negative Depression Screening Done: Yes 42713 - PHQ-9 Billing: Yes Source: Developed by Drs. Jay Mann, Stefanie Hawkins, Delonte Nichols and colleagues, with an educational porfirio from [employer]. Review of Systems Const Denies fatigue, Denies fever(s), Denies headache(s) and Denies weakness Eyes Denies change in vision ENT Denies dizziness, Denies headache(s), Denies mouth lesions and Denies sore throat Card Denies chest pain, Denies lightheadedness, Denies palpitations and Denies dyspnea Resp Denies chest congestion, Denies cough, Denies dyspnea and Denies wheezing GI Denies abdominal pain, Denies change in bowel habits and Denies heartburn Denies urinary frequency, Denies dysuria and Denies urinary urgency Musc Reports no additional complaints Skin/Breast Denies lesions and Denies rash Neuro Denies dizziness, Denies headache(s) and Denies weakness Psych Reports no additional complaints Endo Denies fatigue, Denies polydipsia, Denies polyuria and Denies palpitations [place]/Lymph Denies easy bruising Aller/Immun Denies seasonal rhinorrhea and Denies wheezing Physical Exam Vital Signs: Last Vital Signs Pulse 92 04/08/24 09:52 BP 138/74 04/08/24 09:52 Pulse Ox 98 04/08/24 09:52 Oxygen Delivery Method Room Air 04/08/24 09:52 BMI result Body Mass Index 27.9 Const Other: Alert oriented x3, no acute distress noted ambulatory normal gait Orientation/consciousness: patient oriented x3 HEENT Face and sinus: Yes face symmetric Mouth: Normal oral and palatal mucosa present, oropharynx normal and moist mucous membranes Eyes General: appearance normal, both eyes and all related structures Neck Neck: Yes full ROM, Yes no lymphadenopathy and Yes supple Resp Auscultation: clear to auscultation bilaterally Cardio Other: S1-S2 present regular rate and rhythm Neuro General: patient oriented x3, gait normal, moves all extremities and no focal motor deficits Results Reviewed Results Reviewed: Name: Teodora Hartmann Age/Sex: 68/F [facility] 1955 [id number] [id number] Attend Dr: Shantell Kilpatrick MD Re04/03/24 Status: DEP [facility] SPEC : [id number] AMNA: 04/03/24 STATUS: COMP REQ : [id number] RECD: 04/03/[address]: Shantell Kilpatrick MD COMP: 04/03/24 ENTERED: 04/03/[address]: ORDERED: Free T4, TSH Test Result Flag Reference Free T4 0.89 0.71-1.85 ng/dL TSH 3rd Gen. 45.42 H 0.32-4.0 uIU/mL Note: A sustained TSH level above 2.5 uIU/mL may warrant further investigation. TSH 3rd Generation ([facility]) Assessment & Plan Assessment & Plan (1) Encounter for subsequent annual wellness visit (AWV) in Medicare patient: Code(s): Z00.00 - Encounter for general adult medical examination without abnormal findings Plan: Medical wellness checklist reviewed, discussed with patient and updated. Patient up-to-date with her healthcare proxy and MOLST form done last year (2) Hypothyroidism: Code(s): E03.9 - Hypothyroidism, unspecified Qualifiers: Hypothyroidism type: acquired Qualified Code(s): E03.9 - Hypothyroidism, unspecified Plan: TSH still elevated, but free T4 within normal limits but lower than last check. Eyes to start taking levothyroxine 100 mcg once a day. (3) Hyperlipidemia: Code(s): E78.5 - Hyperlipidemia, unspecified Qualifiers: Hyperlipidemia type: pure hypercholesterolemia Qualified Code(s): E78.00 - Pure hypercholesterolemia, unspecified Plan: Currently on atorvastatin 10 mg daily (4) Hypocalcemia: Code(s): E83.51 - Hypocalcemia Plan: start taking calcium citrate 600 mg 1 tablet twice a day , will recheck levels again after 6 weeks (5) History of uterine cancer: Code(s): Z85.42 - Personal history of malignant neoplasm of other parts of uterus Plan: Followed by Dr. Nieto (6) Osteopenia of lumbar spine: Code(s): M85.88 - Other specified disorders of bone density and structure, other site Plan: Do regular weight-bearing exercise, take adequate calcium from dietary sources and continue taking vitamin-D 3 supplements 50 mcg daily (7) Hypertension: Code(s): I10 - Essential (primary) hypertension Qualifiers: Hypertension type: essential hypertension Qualified Code(s): I10 - Essential (primary) hypertension Plan: Blood pressure at goal of less than 130/80. Continue with current medication. Reinforced importance of following a low sodium diet, getting regular exercise, and lowering stress levels. (8) Seasonal allergies: Code(s): J30.2 - Other seasonal allergic rhinitis Plan: Continue loratadine 10 mg daily Orders: Orders Lipid Panel 05/20/24 E03.9 - Hypothyroidism, unspecified, E78.00 - Pure hypercholesterolemia, unspecified, E83.51 - Hypocalcemia Basic Metabolic Panel Fasting 05/20/24 E03.9 - Hypothyroidism, unspecified, E78.00 - Pure hypercholesterolemia, unspecified, E83.51 - Hypocalcemia Aspartate Amino Transferase 05/20/24 E03.9 - Hypothyroidism, unspecified, E78.00 - Pure hypercholesterolemia, unspecified, E83.51 - Hypocalcemia Free T4 (Free Thyroxine) 05/20/24 E03.9 - Hypothyroidism, unspecified, E78.00 - Pure hypercholesterolemia, unspecified, E83.51 - Hypocalcemia Alanine Aminotransferase 05/20/24 E03.9 - Hypothyroidism, unspecified, E78.00 - Pure hypercholesterolemia, unspecified, E83.51 - Hypocalcemia Thyroid Stimulating Hormone 05/20/24 E03.9 - Hypothyroidism, unspecified, E78.00 - Pure hypercholesterolemia, unspecified, E83.51 - Hypocalcemia Vitamin D 25-OH Total 05/20/24 E03.9 - Hypothyroidism, unspecified, E78.00 - Pure hypercholesterolemia, unspecified, E83.51 - Hypocalcemia Vitamin B12 and Folate 05/20/24 E03.9 - Hypothyroidism, unspecified, E78.00 - Pure hypercholesterolemia, unspecified, E83.51 - Hypocalcemia Quality Reporting (2019) Depression/Bipolar (159/160/161/177) PHQ-9: Total score: 1 Coding Level of Care Code Medicare Subsequent (G0439) Est Pt Level 3 (77923) Diagnoses Encounter for subsequent annual wellness visit (AWV) in Medicare patient Z00.00 Acquired hypothyroidism E03.9 Hypothyroidism type: acquired Pure hypercholesterolemia E78.00 Hyperlipidemia type: pure hypercholesterolemia Hypocalcemia E83.51 History of uterine cancer Z85.42 Osteopenia of lumbar spine M85.88 Essential hypertension I10 Hypertension type: essential hypertension Seasonal allergies J30.2 CPT Codes Advance Care Planning - Advance Care Planning discussion: On file, no changes ([id number]) Advance Care Planning - Time spent: 1-15 minutes, on File ([id number]) Advance Care Planning Advance Care Planning discussion: On file, no changes Date of discussion: 04/11/24 Who was present: Patient Forms completed: Health Care Proxy and MOLST Time spent: 1-15 minutes, on File Actual minutes spent: 1
[2024-04-08 09:52] VITALS: BP 138/74; PULSE 92; O2SAT 98; BMI 27.9
== END 2024-04-08 10:42 | disposition home or self-care (01) ==
LOC: HO.HMCC 09:27
PROVIDERS: PCP Internal Medicine; Visit Provider Internal Medicine
DX: Z00.00 Encounter for general adult medical examination without abnormal findings (principal); E03.9 Hypothyroidism, unspecified; E78.00 Pure hypercholesterolemia, unspecified; E83.51 Hypocalcemia; Z85.42 Personal history of malignant neoplasm of other parts of uterus; M85.88 Other specified disorders of bone density and structure, other site; I10 Essential (primary) hypertension; J30.2 Other seasonal allergic rhinitis

== ENCOUNTER → 2024-04-08 09:26 | Outpatient (BNVA) | payer MEDICARE, SELFPAY | PROVIDERS: PCP Internal Medicine; Visit Provider Internal Medicine | DX: Z00.00 Encounter for general adult medical examination without abnormal findings (principal); E03.9 Hypothyroidism, unspecified; E78.00 Pure hypercholesterolemia, unspecified; E83.51 Hypocalcemia; M85.88 Other specified disorders of bone density and structure, other site; I10 Essential (primary) hypertension; J30.2 Other seasonal allergic rhinitis; Z85.42 Personal history of malignant neoplasm of other parts of uterus | CPT/HCPCS: 96127; 99212 ==

== ENCOUNTER 2024-05-21 06:43 | Outpatient (REF) | payer MEDICARE, SELFPAY ==
--- OUTSIDE RECORDS SUMMARY | 2024-05-21 06:45 | XMS_ITS ---
Author Organization [facility] Address [address] [place] [address] Support Name Relationship Address Phone Meagan Scruggs Emergency Contact [address] [place], [place] [phone] ShahbazJonoTeodora Guarantor Unknown Care Team Providers Care Manager Wholesale Name Role Phone Finesse MARQUEZ, Shantell Trinidad Primary Care Provider Un available Maxi Nica Gr [phone] Encounters Encounter Location Date Provider Diagnosis [address] [address] 04/14/2024 Nica German Plan Of Treatment No Information Progress Notes * Jono HARTMANNineDOB: [birth year] (68 yo F)Acc No.[id number]:04/14/2024 Progress Note Patient:Teodora DOWNS Provider:?Nica German DPM :1955???Age:68 Y???Sex:Female D ate:04/14/2024 Address:[address] [place] [address] [facility] Pcp:Steph Jackson Subjective: * Chief Complaints: * ??? * Medical History:? Objective: * Vitals:? Assessment: Plan: * Treatment: * Images: * The named appointment provid er may or may not be the originator of this progress note, and it is not deemed complete until electronically signed by the appointment provider. Sign off status: Pending * Provider:?Nica German DPM Date:?2023 Generated for Nathanaeli samantha/Emily/eTransmitting on:?05/21/2024 06:45 AM EST
--- OUTSIDE RECORDS SUMMARY | 2024-05-21 06:45 | XMS_ITS ---
Author Organization [facility] Address [address] [place] [address] Support Name Relationship Address Phone Meagan Scruggs Emergency Contact [phone] [place], [place] [id number] Teodora Hartmann Guarantor Unknown Care Team Providers Care Salesperson Pets [employer] Pet Supplies Name Role Phone Finesse MARQUEZ, Shantell Trinidad Primary Care Provider Un available Black, Nica Unavailable [phone] Allergies No Known Allergies REASON FOR VISIT Foot pain, Wart(s) Medications Medication SIG (Take, Route, Frequency, Duration) Notes Start Date End Date Status Lisinopril 10 MG Oral for 90 Days Active Atorvastatin Calcium 10 MG TAKE ONE TABL ET BY MOUTH EVERY DAY Oral for 90 Days Active D3 High Potency 50 MCG (2000 UT) TAKE ONE CAPSULE BY MOUTH EVERY DAY Oral for 90 Days Active Vitamin B-12 100 MCG TAKE ONE TABLET BY MOUTH EVERY DAY Oral for 90 Days Active hydroCHLOROthiazide 25 MG TAKE ONE TABLE T BY MOUTH EVERY MORNING Oral for 90 Days Not-Taking Prochlorperazine Maleate 10 MG Oral for 7 Days prn Active Keytruda Active Multivitamin Active amLODIPine Besylate 10 MG TAKE ONE TABLE T BY MOUTH EVERY NIGHT AT BEDTIME Oral for 30 days Active Levothyroxine Sodium 100 MCG as directed Oral Once a day for 90 days Active Lenvima (10 MG Daily Dose) Active Social History Tobacco Use: Social History Observation Description Date Details (start date - stop date) Never Smoker NA - NA Tobacco use other than smoking: Question Answer Notes Are you an other tobacco user? No Tobacco Control (Standard) Question Answer Notes Tobacco use: Nonsmoker Additional Findings: Tobacco non-user Current no nsmoker AUDIT-C (Standard) Question Answer Notes Did you have a drink contain ing alcohol in the past year? Yes How often did you have six o r more drinks on one occasion in the past year? Less than monthly (1 point) How many drinks did you have on a typical day when you were drinking in the past year? 1 or 2 drinks (0 point) How often did you have a dri nk containing alcohol in the past year? Monthly or less (1 point) Points 2 Interpretation Negative Vital Signs Height 5ft 1in in 04/29/2024 Weight 162 lbs 04/29/2024 BMI 30.61 kg/m2 04/29/2024 Blood pressure systolic 130 mm Hg 04/29/20 24 Blood pressure diastolic 77 mm Hg 024 Encounters Encounter Location Date Provider Diagnosis [facility] [address] [place] [address] 04/29/2024 Nicaabhijeet German Pain in left foot M79.672 ; Metatarsalgia, left foot M77.42 ; Pain in left ankle and joints of left foot M25.572 ; Bursitis of intermetatarsal bursa of left foot M77.52 and Plantar wart B07.0 Assessments Encounter Date Diagnosis (ICD Code) Assessment Notes Treatment Notes Treatment Clinical Notes Section Notes 04/29/2024 Pain in left foot (ICD-10 - M79.672) 04/29/2024 Metatarsalgia, left foot (ICD-10 - M77.42) 04/29/2024 Pain in left ankle and joints of left foot (ICD-10 - M25.572) 04/29/2024 Bursitis of intermetatarsal bursa of left foot (ICD-10 - M77.52) 04/29/2024 Plantar wart (ICD-10 - B07.0) Plan Of Treatment Next Appt Details Follow Up: prn, Reason: Progress Notes * IVOLETAJono KENNEYineDOB: [birth year] (68 yo F)Acc No.[id number]:04/29/2024 Progress Note Patient:Jono DOWNSine Provider:?Nica German DPM :1955???Age:68 Y???Sex:Female D ate:04/29/2024 Address:[address] [place] [address] MARILEE [id number] Pcp:Steph Jackson Subjective: * Chief Complaints: * ???Foot painWart(s) * HPI: ???Foot Pain:?Location:?Bottom, Forefoot, LEFT.?Duration:?several months.?Course:?improved, at 100%.?Treatments:?rest/alter normal daily activity , change in shoes (New Balance) with increase in size.?Skin problems:?Pt States PCP Visit: ?DATE?01/06/2024 * ROS:?General/Constitutional:?Nausea?denies.?Vomiting?denies.?Hunger Thirst?denies.?Loss appetite?denies.?Chills?denies.?Fatigue?denies.?Fever?denies.?Night Sweats?denies.?Unexplained weight loss?denies.?Unexplained weight gain?denies.?HEENTM:?Dentures?denies.?Dizziness?denies.?Glasses/contacts?denies.?Retinopathy?de nies.?Blurred/double vision?denies.?TMJ?denies.?Discharge/drainage?denies.?Implants?denies.?Sore throat?denies.?Dental implants?denies.?Hard of hearing ?denies.?Difficulty chewing/swallowing/speaking?denies.?Nose bleeds?denies.?Sore mouth?denies.?Respiratory:?On Oxygen?denies.?Pneumonia/pleurisy?denies.?Bronchitis?denies.?Emphysema?denies.?C oughing?denies.?Cough blood?denies.?Shortness of breath?denies.?Wheezing?denies.?Cardiovascular:?Pacemaker?denies.?MVP?denies.?WPW?denies.?CHF?denies.?Heart attack?denies.?Septal defect?denies.?Rapid beat?denies.?Chest pain ?denies.?Atrial Fib.?denies.?Murmur/Palpitations?denies.?Gastrointestinal:?Hemorrhoids?denies.?Stomach/Abdominal pain?denies.?Dark blood stool?denies.?Irritable bowel ?denies.?Constipation?denies.?Diarrhea?denies.?Hematology:?Swelling?denies.?Clots?denies.?Varicose Veins?denies.?Bruising?denies.?Bleeding problem?denies.?Genitourinary:?Blood urine?denies.?Frequent/Painfu/urination/bladder control?denies.?Kidney stones?denies.?Infection (UTI)?denies.?Nephropathy?denies.?sex trans dis (STD)?denies.?Prostate?denies.?Musculoskeletal:?Hammertoes?denies.?Bunions?denies.?Back Pain?denies.?Muscle Cramps/ Resting?denies.?Muscle cramps / walking?denies.?Generalized aches and pains?denies.?Weakness?denies.?Integ.:?Jarrett?denies.?Scars?denies.?Corns/calluses?denies.?Ingrown nails?denies.?Painful nails?denies.?Open Sores?denies.?Rashes?denies.?Neurologic:?Difficulty sleeping?denies.?Brain disorder?denies.?Numbness?denies.?Balance trouble?denies.?Confusion?denies.?Fainting/blackouts?denies.?Tingling?denies.?Tr emors?denies.? * Medical History:? * Surgical History:?knee surge ry cancer eye surgery hysterectomy, total * Hospitalization/Major Diagno stic Procedure:?fell, 2 fractures in right leg * Family History:?Mother: dece ased.?Father: .? * Social History:?Tobacco Use:?Tobacco use other than smoking?Are you an other tobacco user??No ?Tobacco Control (Standard)?Tobacco use:?Nonsmoker ?Additional Findings: Tobacco non-user?Current nonsmoker ???Drugs/Alcohol:?Drugs?Have you used drugs other than those for medical reasons in the past 12 months??No ???Miscellaneous:?Caffeine: no, frequency: decaff coffee, decaff tea, diet soda. ?Children: no. ?Exercise: yes, walking. ?Marital status: . 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 ???Drug/Alcohol:?AUDIT-C (Standard)?Did you have a drink containing alcohol in the past year??Yes ?How often did you have six or more drinks on one occasion in the past year??Less than monthly (1 point) ?How many drinks did you have on a typical day when you were drinking in the past year??1 or 2 drinks (0 point) ?How often did you have a drink containing alcohol in the past year??Monthly or less (1 point) ?Points?2 ?Interpretation?Negative * Medications:?TakingLenvima ( 10 MG Daily Dose) Keytruda Multivitamin amLODIPine Besylate 10 MG Tablet TAKE ONE TABLET BY MOUTH EVERY NIGHT AT BEDTIME Oral Levothyroxine Sodium 100 MCG Capsule as directed Oral Once a day Prochlorperazine Maleate 10 MG Tablet Oral , Notes to Pharmacist: prnLisinopril 10 MG Tablet Oral Atorvastatin Calcium 10 MG Tablet TAKE ONE TABLET BY MOUTH EVERY DAY Oral D3 High Potency 50 MCG (2000 UT) Capsule TAKE ONE CAPSULE BY MOUTH EVERY DAY Oral Vitamin B-12 100 MCG Tablet TAKE ONE TABLET BY MOUTH EVERY DAY Oral Taking Lenvima (10 MG Daily Dose) Taking Keytruda Taking Multivitamin Taking amLODIPine Besylate 10 MG Tablet TAKE ONE TABLET BY MOUTH EVERY NIGHT AT BEDTIME Oral Taking Levothyroxine Sodium 100 MCG Capsule as directed Oral Once a day Taking Prochlorperazine Maleate 10 MG Tablet Oral , Notes to Pharmacist: prnTaking Lisinopril 10 MG Tablet Oral Taking Atorvastatin Calcium 10 MG Tablet TAKE ONE TABLET BY MOUTH EVERY DAY Oral Taking D3 High Potency 50 MCG (2000 UT) Capsule TAKE ONE CAPSULE BY MOUTH EVERY DAY Oral Taking Vitamin B-12 100 MCG Tablet TAKE ONE TABLET BY MOUTH EVERY DAY Oral Not-Taking/PRNhydroCHLOROthiazide 25 MG Tablet TAKE ONE TABLET BY MOUTH EVERY MORNING Oral Medication List reviewed and reconciled with the patientNot-Taking/PRN hydroCHLOROthiazide 25 MG Tablet TAKE ONE TABLET BY MOUTH EVERY MORNING Oral Medication List reviewed and reconciled with the patient * Allergies:?N.K.D.A.yes[Aller gies Verified] Objective: * Vitals:?Ht: 5ft 1in, Wt:162, BMI:30.61, Shoe size: 9, BP:130/77mm Hg, Ht-cm: 154.94 cm, Wt-k.48 kg. * Examination: ???General Examination: ?GENERAL APPEARANCE:?Reveals a pleasant, alert, well nourished, well- developed, well hydrated individual, who demonstrates proper attention to hygiene/body habitus, and is in no acute distress, Pt serves as own historian for office visit today.?ORIENTED:?person, place, and time.?Neurological: ?SENSORY:?Neurological exam reveals intact sensorium, pain sensation normal, vibration sensation intact, pinprick sensation is normal in the lower extremities, Pt denies, anesthesia, burning, paresthesia, tingling, B/L.?Orthopedic: ?MUSCLE STRENGTH:?5/5 all groups in a symmetrical fashion, B/L.?GAIT ABNORMALITY:?antalgic.?TAILOR'S BUNION:?Prominent, painful, inflamed 5th MTH/MPJ , LEFT.?DIGITAL DEFORMITIES:?Digital contracture, PIPJ, 2-5 B/L, incompl-reducible with WB, or to push-up test, no over, nor underlapping.?MPJ PATHOLOGY:?no Pain, swelling, and inflammation to plantar 5th, MPJ(s), LEFT, No MPJ pain with ROM, [ - ] Ecchymosis- resolved at 100%.?Dermatologic: ?VERRUCA:?NO FURTHER SIGN of mosaic papule(s) with skin lines now evident and visible, plantar Forefoot, LEFT.?Vascular: ?DP PULSES(B):?2/4 , B/L.?PT PULSES(B):?2/4, B/L.? Assessment: * Assessment: 1.?Metatarsalgia, left foot - M77.42 (Primary)???Specify :Response to treatment - Improvement???2.?Pain in left foot - M79.672???3.?Pain in left ankle and joints of left foot - M25.572???4.?Bursitis of intermetatarsal bursa of left foot - M77.52???5.?Plantar wart - B07.0???Specify :Resolved??? Plan: * Treatment: * Procedure Codes:? * Preventive Medicine:? ??Counseling:?Discussion:?-13: Office or other outpatient visit for the evaluation and management of an established patient, which required a medically appropriate history and/or examination and LOW level of DECISION MAKING for: 1 STABLE ACUTE UNCOMPLICATED PROBLEM, 2 OR MORE MINOR PROBLEMS, OR 1 STABLE CHRONIC PROBLEM, THAT POSE(S) A LOW RISK FOR MORBIDITY/MORTALITY. The visit on the day of the encounter encompassed interpreting the data and educating the patient as to the nature of their condition, treatment options available according to their individual PMH, meds, allergies, and overall health/living conditions, as well as any potential risks or complications that may occur from a failure to adhere to, and participate in, the recommended course of therapy. The discussion included a complete verbal, and/or written explanation of the examination results, any x-rays taken, the proposed diagnosis, and outline of the treatment plan. A schedule for future care needs was also explained. The patient verbalized an understanding of the instructions at this time and agreed to be an active participant in their treatment. If the patient should think of any questions or concerns after the visit, I have encouraged the patient to call the office.?F/u Visit:?The Pt. was counseled on the remaining treatment options and importance of adherence to recomm; the Pt wishes to continue present protochol longer.?Verruca:?The patient was counseled on the present status of the lesion. Discussed reoccurence is common and the need to monitor the area daily and if any signs of reoccurence to present back to the office.? * Follow Up:?prn * Images: * Sign off status: Completed true * Provider:?Nica German DPM Date:?2023 Generated for Audrey singh/Emily/Niravitting on:?05/21/2024 06:45 AM EST History and Physical Notes * HPI (History of Present Illness) Category Sub-Category Detail Notes Category Not es Skin problems Pt States PCP Visit: DATE: 01/06/2024 Foot Pain Location: Bottom, Forefoot, LEFT Duration: several months Course: improved, at 100% Treatments: rest/alter normal da nuno activity , change in shoes (New Balance) with increase in size Examination Category Sub-Category Detail Notes Category Not es Neurological SENSORY: Neurological exa m reveals intact sensorium, pain sensation normal, vibration sensation intact, pinprick sensation is normal in the lower extremities, Pt denies, anesthesia, burning, paresthesia, tingling, B/L Dermatologic VERRUCA: NO FURTHER SIGN of mosaic papule(s) with skin lines now evident and visible, plantar Forefoot, LEFT Orthopedic GAIT ABNORMALITY: antalgic DIGITAL DEFORMITIES: Digital contracture , PIPJ, 2-5 B/L, incompl-reducible with WB, or to push-up test, no over, nor underlapping MPJ PATHOLOGY: no Pain, swelling, a nd inflammation to plantar 5th, MPJ(s), LEFT, No MPJ pain with ROM, [ - ] Ecchymosis- resolved at 100% TAILOR'S BUNION: Prominent, painful, inflamed 5th MTH/MPJ , LEFT MUSCLE STRENGTH: 5/5 all groups in a symmetrical fashion, B/L General Examination GENERAL APPEARANCE: Reveals a pleasant, alert, well nourished, well-developed, well hydrated individual, who demonstrates proper attention to hygiene/body habitus, and is in no acute distress, Pt serves as own historian for office visit today ORIENTED: person, place, and t musa Vascular DP PULSES(B): 07/13 , B/L PT PULSES(B): 07/13, B/L
--- OUTSIDE RECORDS SUMMARY | 2024-05-21 06:46 | XMS_ITS ---
Author Organization [facility] Address [address] [place] [address] Support Name Relationship Address Phone Meagan Scruggs Emergency Contact [phone] [place], [place] [phone] Teodora Hartmann Guarantor Unknown Care Team Providers Care Workers Compensation Defense Attorney Name Role Phone Finesse MARQUEZ, Shantell Trinidad Primary Care Provider Un available Black, Nica Unavailable [phone] Allergies No Known Allergies REASON FOR VISIT Foot pain, Wart(s) Medications Medication SIG (Take, Route, Frequency, Duration) Notes Start Date End Date Status hydroCHLOROthiazide 25 MG TAKE ONE TABLE T BY MOUTH EVERY MORNING Oral for 90 Days Not-Taking Vitamin B-12 100 MCG TAKE ONE TABLET BY MOUTH EVERY DAY Oral for 90 Days Active D3 High Potency 50 MCG (1999 UT) TAKE ONE CAPSULE BY MOUTH EVERY DAY Oral for 90 Days Active Atorvastatin Calcium 10 MG TAKE ONE TABL ET BY MOUTH EVERY DAY Oral for 90 Days Active Lisinopril 10 MG Oral for 90 Days Active Keytruda Active Prochlorperazine Maleate 10 MG Oral for 7 Days prn Active Levothyroxine Sodium 100 MCG TAKE ONE TA BLET BY MOUTH EVERY OTHER DAY; ALTERNATING WITH 88 MCG STENGTH Oral for 90 days Active amLODIPine Besylate 10 MG TAKE ONE TABLE T BY MOUTH EVERY NIGHT AT BEDTIME Oral for 30 days Active Multivitamin Active Lenvima (10 MG Daily Dose) Active Social History Tobacco Use: Social History Observation Description Date Details (start date - stop date) Never Smoker NA - NA Tobacco Use/Smoking Question Answer Notes Are you a: nonsmoker Tobacco use other than smoking: Question Answer Notes Are you an other tobacco user? No Vital Signs Height 5ft1in in 03/25/2024 Weight 160 lbs 03/25/2024 BMI 30.23 kg/m2 03/25/2024 Blood pressure systolic 130 mm Hg 03/25/20 24 Blood pressure diastolic 78 mm Hg 024 Procedures Procedure Date Ordered Date Performed Result Body Sit e 93492-Nxit Destruction, -03/25/2024 N/A Encounters Encounter Location Date Provider Diagnosis [facility] [address] [place] [address] 03/25/2024 Inca Black Pain in left foot M79.672 ; Metatarsalgia, left foot M77.42 ; Pain in left ankle and joints of left foot M25.572 ; Bursitis of intermetatarsal bursa of left foot M77.52 and Plantar wart B07.0 Assessments Encounter Date Diagnosis (ICD Code) Assessment Notes Treatment Notes Treatment Clinical Notes Section Notes 03/25/2024 Pain in left foot (ICD-10 - M79.672) 03/25/2024 Metatarsalgia, left foot (ICD-10 - M77.42) 03/25/2024 Pain in left ankle and joints of left foot (ICD-10 - M25.572) 03/25/2024 Bursitis of intermetatarsal bursa of left foot (ICD-10 - M77.52) 03/25/2024 Plantar wart (ICD-10 - B07.0) Plan Of Treatment Pending Test Test Name Order Date 87698-Ekec Destruction, -03/25/2024 Next Appt Details Follow Up: 3 Months, Reason: Procedure Notes * Category Sub-Category Detail Notes Wart Treatment Procedure Verrucae were de brided to pin-point bleeding margins with sterile 15 surgical blade, silver nitrate chemocautery applied, recomm. immune-boosting meds such as zinc, recomm. follow up with topical chemosurgical agents, Pt STILL, defers any other forms of tx (40370) Progress Notes * Jono HARTMANNineDOB: [birth year] (68 yo F)Acc No.[id number]:03/25/2024 Progress Note Patient:?Jono Hartmannine Provider:?Nica German DPM :1955???Age:68 Y???Sex:Female D ate:03/25/2024 Address:[address] [place] [address] Erin rich [id number] Pcp:Steph Jackson Subjective: * Chief Complaints: * ???Foot painWart(s) * HPI: ???Foot Pain:?Location:?Bottom, Forefoot, LEFT.?Duration:?several months.?Course:?worse.?Treatments:?rest/alter normal daily activity , change in shoes [...] dece ased.?Father: .? * Social History:?Tobacco Use:?Tobacco Use/Smoking?Are you a:?nonsmoker ?Tobacco use other than smoking?Are you an other tobacco user??No ???Miscellaneous:?Caffeine: frequency:. ?no Children. ?no Exercise. ?Marital status: . ?Occupation: Retired. * Medications:?TakingLenvima ( 10 MG Daily Dose) Keytruda Multivitamin amLODIPine Besylate 10 MG Tablet TAKE ONE TABLET BY MOUTH EVERY NIGHT AT BEDTIME Oral Levothyroxine Sodium 100 MCG Tablet TAKE ONE TABLET BY MOUTH EVERY OTHER DAY; ALTERNATING WITH 88 MCG STENGTH Oral Prochlorperazine Maleate 10 MG Tablet Oral , Notes: prnLisinopril 10 MG Tablet Oral Atorvastatin Calcium [...] BEDTIME Oral Taking Levothyroxine Sodium 100 MCG Tablet TAKE ONE TABLET BY MOUTH EVERY OTHER DAY; ALTERNATING WITH 88 MCG STENGTH Oral Taking Prochlorperazine Maleate 10 MG Tablet Oral , Notes: prnTaking Lisinopril 10 MG Tablet Oral Taking [...] * Allergies:?N.K.D.A.yes[Aller gies Verified] Objective: * Vitals:?Ht: 5ft1in, Wt:160, BMI:30.23, Shoe size: 8.5, BP:130/78 mm Hg, Ht-cm: 154.94 cm, Wt-k.57 kg. * Examination: ???General Examination: ?GENERAL APPEARANCE:?Reveals [...] to push-up test, no over, nor underlapping.?MPJ PATHOLOGY:? Pain, swelling, and inflammation to plantar 5th, MPJ(s), LEFT, No MPJ pain with ROM, [ - ] Ecchymosis.?Dermatologic: ?VERRUCA:?Reveals a Single , multi-loculated , mosaic-patterned, round, raised, flat-topped, petechial bleeding papule(s), with cauliflower appearance and interruption of skin lines, pain to lateral compression, and size estimated at 3 mm diameter , plantar Forefoot , LEFT.?Vascular: ?DP PULSES(B):?2/4 , B/L.?PT PULSES(B):?2/4, B/L.? * Physical Examination:?[id number] Supplies:?Insoles-pedag?#39.? Assessment: * Assessment: 1.?Metatarsalgia, left foot - M77.42 (Primary), Acute problem, Complicated w/ Multiple Tx Options(4),Response to treatment - Unchanged?2.?Pain in left foot - M79.672?3.?Pain in left ankle and joints of left foot - M25.572?4.?Bursitis of intermetatarsal bursa of left foot - M77.52?5.?Plantar wart - B07.0? Plan: * Treatment: * Procedures:?Wart Treatment:?Procedure?Verrucae were debrided to pin-point bleeding margins with sterile 15 surgical blade, silver nitrate chemocautery applied, recomm. immune-boosting meds such as zinc, recomm. follow up with topical chemosurgical agents, Pt STILL, defers any other forms of tx (76953).? * Procedure Codes:?20339 Wart Destruction, 1-14, Modifiers: XS * Preventive Medicine:? ??Counseling:?Discussion:?-14: Office or other outpatient visit for the evaluation and management of an established patient, which required a medically appropriate history and/or examination and MODERATE level of DECISION MAKING for: 1 OR MORE CHRONIC PROBLEM(S) THATS WORSENING, 2 STABLE CHRONIC PROBLEMS, A NEWLY DIAGNOSED PROBLEM WITH UNCERTAIN PROGNOSIS, AN ACUTE COMPLICATED INJURY WITH MULTIPLE TREATMENT OPTIONS, OR AN ACUTE PROBLEM WITH ACCOMPANYING SYSTEMIC SYMPTOMS, THAT POSE(S) A MODERATE RISK OF MORBIDITY. THIS CONDITION MAY ALSO INCLUDE RX DRUG MANAGEMENT, OR A DECISON FOR MINOR SURGERY. The visit on the day of the [...] have encouraged the patient to call the office.?BioMech.:?I discussed the Pts foot biomechanics with them and how it relates to their problem, Pt is fitted for an OC orthotic to help address their issues., Recommended Topical analgesics including biofreeze/aspercream/Voltaren gel.?Orthotic Dispensing:?The OTC inserts are properly fitted to the patient's feet in both weight-bearing and non-weight bearing attitudes. The patient was instructed to gradually increase the amount of time they are wearing the orthoses, starting with one hour the first day and thereon progressively increasing the amount of time used until they are comfortable to be worn all day and with all activities. They were asked to call the office if any signs of skin irritation were noted including redness, blistering or callous formation. The patient verbally indicated a full understanding of all the above information.? * Follow Up:?3 Months * Images: * Sign off status: Completed true * Provider:?Nica German DPM Date:?2023 Generated for Audrey singh/Emily/Niravitting on:?05/21/2024 06:45 AM EST History and Physical Notes * HPI (History of Present Illness) Category Sub-Category Detail Notes Category Not es Skin problems Pt States PCP Visit: DATE: 01/06/2024 Foot Pain Location: Bottom, Forefoot, LEFT Duration: several months Course: worse Treatments: rest/alter normal da nuno activity , change in shoes (New Balance) with increase in size Physical Examination Category Sub-Category Detail Notes Section Note s [id number] Supplies Insoles-pedag #39 Examination Category Sub-Category Detail Notes Category Not es Neurological SENSORY: Neurological exa m reveals intact sensorium, pain sensation normal, vibration sensation intact, pinprick sensation is normal in the lower extremities, Pt denies, anesthesia, burning, paresthesia, tingling, B/L Dermatologic VERRUCA: Reveals a Single , multi-loculated , mosaic-patterned, round, raised, flat-topped, petechial bleeding papule(s), with cauliflower appearance and interruption of skin lines, pain to lateral compression, and size estimated at 3 mm diameter , plantar Forefoot , LEFT Orthopedic GAIT ABNORMALITY: antalgic DIGITAL DEFORMITIES: Digital contracture , PIPJ, 2-5 B/L, incompl-reducible with WB, or to push-up test, no over, nor underlapping MPJ PATHOLOGY: Pain, swelling, and inflammation to plantar 5th, MPJ(s), LEFT, No MPJ pain with ROM, [ - ] Ecchymosis TAILOR'S BUNION: Prominent, painful, inflamed 5th MTH/MPJ [...] place, and t musa Vascular DP PULSES(B): 2 , B/L PT PULSES(B): 07/13, B/L
--- OUTSIDE RECORDS SUMMARY | 2024-05-21 06:46 | XMS_ITS | Patient Health Record ---
Author Organization [facility] Address [address] [place] [address] Support Name Relationship Address Phone Meagan Scruggs Emergency Contact [address] [place] [address] Teodora Hartmann Guarantor Unknown Care Team Providers Care Hand Paster Name Role Phone Finesse MARQUEZ, Shantell Trinidad Primary Care Provider Un available Black, Nica Unavailable [phone] Allergies No Known Allergies Results Component Value Reference Range Notes X ray : Foot, left 3V Reviewed date:02/04/2024 02:25:53 PM Interpretation:See Examination above Performing Lab: Notes/Report: See Examination above Reason For Referral No Information Medications Medication SIG (Take, Route, Frequency, Duration) Notes Start Date End Date Status Prochlorperazine Maleate 10 MG Oral for 7 Days prn Active Lisinopril 10 MG Oral for 90 [...] EVERY MORNING Oral for 90 Days Not-Taking Lenvima (10 MG Daily Dose) Active Keytruda Active Multivitamin Active amLODIPine Besylate 10 MG TAKE ONE TABLE T BY MOUTH EVERY NIGHT AT BEDTIME Oral for 30 days Active Levothyroxine Sodium 100 MCG as directed Oral Once a day for 90 days Active Social History Tobacco Use: Social History [...] less (1 point) Points 2 Interpretation Negative Problems Problem Type SNOMED Code ICD Code Onset Dates Problem Status W/U Status Risk Notes Problem Plantar wart (03074089) Plantar wart (B07.0) Active confirmed Vital Signs Blood pressure diastolic 77 mm Hg 04/29/2024 Height 5ft 1in in 04/29/2024 Blood pressure systolic 130 mm Hg 04/29/2024 Weight 162 lbs 04/29/2024 BMI 30.61 kg/m2 04/29/2024 Procedures Procedure Date Ordered Date Performed Result Body Sit e 41487-Hquc Destruction, 06-2202/04/2024 N/A 02076-Hdby Destruction, 06-2203/25/2024 N/A Encounters Encounter Location Date Provider Diagnosis [address] [address] 02/04/2024 Nica Black Pain in left foot M79.672 ; Pain in left ankle and joints of left foot M25.572 ; Bursitis of intermetatarsal bursa of left foot M77.52 ; Metatarsalgia, left foot M77.42 and Plantar wart B07.[facility] [address] 03/25/2024 Nica Black Pain in left foot M79.672 ; Metatarsalgia, left foot M77.42 ; Pain in left ankle and joints of left foot M25.572 ; Bursitis of intermetatarsal bursa of left foot M77.52 and Plantar wart B07.[address] [address] 04/29/2024 Nica Black Pain in left foot M79.672 ; Metatarsalgia, left foot M77.42 ; Pain in left ankle and joints of left foot M25.572 ; Bursitis of intermetatarsal bursa of left foot M77.52 and Plantar wart B07.0 [facility] [address] [address] 12/30/2023 Nica German [facility] [address] [address] 03/18/2024 Nica German Assessments Encounter Date Diagnosis (ICD Code) Assessment Notes Treatment Notes Treatment Clinical Notes Section Notes 02/04/2024 Pain in left ankle and joints of left foot (ICD-10 - M25.572) 02/04/2024 Pain in left foot (ICD-10 - M79.672) 03/25/2024 Metatarsalgia, left foot (ICD-10 - M77.42) 03/25/2024 Pain in left foot (ICD-10 - M79.672) 04/29/2024 Metatarsalgia, left foot (ICD-10 - M77.42) 04/29/2024 Pain in left foot (ICD-10 - M79.672) 04/29/2024 Pain in left ankle and joints of left foot (ICD-10 - M25.572) 03/25/2024 Pain in left ankle and joints of left foot (ICD-10 - M25.572) 02/04/2024 Bursitis of intermetatarsal bursa of left foot (ICD-10 - M77.52) 02/04/2024 Metatarsalgia, left foot (ICD-10 - M77.42) 03/25/2024 Bursitis of intermetatarsal bursa of left foot (ICD-10 - M77.52) 04/29/2024 Bursitis of intermetatarsal bursa of left foot (ICD-10 - M77.52) 04/29/2024 Plantar wart (ICD-10 - B07.0) 02/04/2024 Plantar wart (ICD-10 - B07.0) 03/25/2024 Plantar wart (ICD-10 - B07.0) Plan Of Treatment Pending Test Test Name Order Date 00969-Odhr Destruction, 1-14 02/04/2024 75476-Tkfb Destruction, 1-14 03/25/2024 Insurance Providers Payer Name Payer Address Payer Phone Subscriber Number Group Number Insured Name Patient Relationship to Insured Coverage Start Date Coverage End Date Medicare National Govt Svcs Inc [address] [place] [phone] [id number] Teodora Hartmann Self - patient is the insured [employer] Blue [facility] [address] [place] [address] [phone] [id number] 2 Teodora Hartmann Self - patient is the insured Medical (General) History Medical History History ICD Code Arthritis Back,Hip,and Knee pain Cancer Hypertension Numbness thyroid Measles Joint implants/screws Surgical History Surgery Date(Month/Year) knee surgery cancer eye surgery hysterectomy, total Hospitalization History Reason Date(Month/Year) fell, 2 fractures in right leg
[2024-05-21 11:20] LABS: Alanine Aminotransferase 20 U/L (0-31); Anion Gap 13 (12-20); Aspartate Amino Transferase 31 U/L (5-31); Blood Urea Nitrogen 9 mg/dL (9-16); Calcium 9.3 mg/dL (8.4-10.2); Carbon Dioxide 28 mmol/L (22-29); Chloride 103 mmol/L (96-108); Cholesterol 171 mg/dL (<200); Estimated Glomerular Filt Rate > 60; Free T4 (Free Thyroxine) 0.89 ng/dL (0.71-1.85); Glucose Fasting 89 mg/dL (60-99); HDL Cholesterol 50 mg/dL (>40); LDL Cholesterol Calculated 91 mg/dL (<100); Potassium 3.5 mmol/L (3.3-5.1); Sodium 140 mmol/L (135-145); Thyroid Stimulating Hormone 57.59 uIU/mL (0.32-4.0); Triglycerides 151 mg/dL (<150); Vitamin D 25-OH Total 51.6 ng/mL (>30)
[2024-05-21 11:38] LABS: Vitamin B12 218 pg/mL (200-900)
== END 2024-05-21 06:44 | disposition home or self-care (01) ==
LOC: HO.HMGCLDS 06:43
PROVIDERS: PCP Internal Medicine; Visit Provider Internal Medicine
DX: E83.51 Hypocalcemia (principal); E78.00 Pure hypercholesterolemia, unspecified; E03.9 Hypothyroidism, unspecified
CPT/HCPCS: 36415; 80048; 80061; 82306; 82607; 82746; 84439; 84443; 84450; 84460

== ENCOUNTER 2024-05-28 08:30 | Outpatient (AMB) | payer MEDICARE, SELFPAY ==
--- NOTE | 2024-05-28 08:24 | MHC.PC.OV ---
Intake Visit Reasons: 1 months f/up Allergies No Known Allergies [No Known Allergies*] Allergy (Verified 05/28/24 08:32) Medication List - Last Reconciled 05/28/24 by Shantell Kilpatrick MD amlodipine 10 mg PO DAILY amlodipine 10 mg PO DAILY atorvastatin 10 mg PO DAILY biotin (Hair, Skin and Nails (biotin)) mcg PO calcium carbonate 600 mg PO BID cholecalciferol (vitamin D3) 50 mcg PO DAILY cyanocobalamin (vitamin B-12) 100 mcg PO DAILY lenvatinib 8 mg PO DAILY levothyroxine 125 mcg PO .qd lisinopril 10 mg PO DAILY loratadine (Allergy Relief (loratadine)) 10 mg PO DAILY magnesium glycinate 100 mg PO DAILY 7 days multivitamin with folic acid 400 mcg (Daily-Neeraj (with folic acid)) 1 tab PO DAILY pembrolizumab (Keytruda) 200 mg IV Q3W potassium chloride ER 10 mEq PO DAILY Tobacco use date assessed: 05/28/24 Fall risk assessment: 1 Fall in past year Last assessed Fall Risk: 05/28/24 Dental Screening Dental Screen Date: 05/28/24 Did you have a dental visit in the last 12 months?: Yes Did you have a dental problem in the last 6 months where you did not have access to dental care?: No Was dental information given to patient?: Patient has dentist HPI 1 months f/up HPI Details 68-year-old lady with osteopenia of multiple sites, hypothyroidism, hyperlipidemia, seasonal allergies 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 Lord, presents today for follow-up. Her last labs showed elevated TSH with normal free T4. Repeat thyroid levels again drawn couple of days ago showed still persistently high TSH with normal free T4 patient states that she has been feeling well, with no other concerns at present time. She was recently seen by [facility] endocrine clinic and was found to have been taking her thyroid medicine in the morning together with her calcium supplement. Patient has been advised not to take them too close together, as her thyroid supplements is not well absorbed when taking calcium her dose of levothyroxine was adjusted about 2 days ago to 125 mcg taken once a day in a.m. an hour before any food or drink sent for water. She also had a recent mammogram done which showed presence of some calcifications in right breast, repeat mg done yesterday showed suspicious findings and she is scheduled for a breast biopsy to be done at [facility] later this month. [facility] Medical History Hypomagnesemia Hypokalemia Fracture of pelvis History of adenomatous polyp of colon Sacral fracture Osteopenia of multiple sites Sacral insufficiency fracture Lumbar radiculopathy, acute History of radiation therapy History of uterine cancer Abnormal mammogram of left breast Breast density Carcinoma of left fallopian tube Adenocarcinoma of endometrium, stage 1 Seasonal allergies Postmenopausal bleeding Menopause Osteopenia of lumbar spine Hyperlipidemia Osteoarthritis, knee Hypothyroidism Hypertension Surgical History H/O colonoscopy Status post total hysterectomy and bilateral salpingo-oophorectomy History of total knee arthroplasty H/O arthroscopy of right knee H/O arthroscopy of left knee H/O arthroscopic knee surgery H/O blepharoplasty Family History Father Prostate cancer Heart disease Mother Diabetes mellitus Mother Skin cancer Social History Housing: House Alcohol intake: never Comment: cramping Patient Tobacco Use Status: Never used Tobacco e-Cigarette/Vaping Use: Never Used Advance Directives Date on File: 03/04/23 Current occupational status: retired Cognitive needs: No Hearing needs: No Vision needs: No Questionnaire Thrive Questionnaire Date Thrive assessed: 01/12/24 HUSSAIN-7 AMB Questionnaire HUSSAIN-7 Date HUSSAIN - 7 assessed: 06/17/23 Source: Developed by Drs. Jay Mann, Stefanie Hawkins, Delonte Nichols and colleagues, with an educational porfirio from [employer]. Review of Systems Const All systems reviewed & are unremarkable except as noted in HPI and below Physical exam (Primary Care) Tobacco/Smoking Status: Tobacco use Status Tobacco use date assessed 05/28/24 05/28/24 08:29 Patient Tobacco Use Status Never used Tobacco 05/28/24 08:29 e-Cigarette/Vaping Use Never Used 05/28/24 08:29 Thrive Assessment: Date of Thrive Assessment Date Thrive assessed 01/12/24 05/28/24 08:29 Telehealth Telehealth Telehealth Platform: Bawte Location of provider rendering services: practice address Location of patient: address on file Patient Identification confirmed using: Name, : Yes Telehealth method: video Patient verbally consented to treatment: Yes Patient verbally consented to billing insurance company: Yes Patient informed of any privacy concerns related to visit: Yes Minutes spent on Phone/Video with Pt.: 15 Results Reviewed Results Reviewed: Name: Teodora Hartmann Age/Sex: 68/F : 1955 Unit#: [id number] Attend Dr: Shantell Kilpatrick MD Re05/21/24 Status: DEP REF Location: [facility] Disch: SPEC : [id number] AMNA: 05/21/24 STATUS: COMP REQ : [id number] RECD: 05/21/24-[address]: Shantell Kilpatrick MD COMP: 05/21/24 ENTERED: 05/21/[address]: ORDERED: Met Prof Fast, AST, ALT, Lipid Panel, Vitamin D 25-OH, Free T4, TSH Test Result Flag Reference Sodium 140 135-145 mmol/L Potassium 3.5 3.3-5.1 mmol/L CL 103 96-108 mmol/L CO2 28 22-29 mmol/L Gap 13 12-20 BUN 9 9-16 mg/dL Creat 0.67 0.5-1.4 mg/dL eGFR > 60 Chronic Kidney Disease: Estimated GFR < 60 mL/min/1.73m2 Severe Kidney Disease: Estimated GFR < 15 mL/min/1.73m2 FBS 89 60-99 mg/dL CA 9.3 # 8.4-10.2 mg/dL AST (GOT) 31 5-31 U/L ALT (GPT) 20 0-31 U/L Triglyceride 151 H <150 mg/dL Desirable Triglyceride: less than 150 mg/dL Borderline High Triglyceride 150-199 mg/dL High Triglyceride: 200-499 mg/dL Very High Triglyceride: greater than or equal to 5OO mg/dL Cholesterol 171 <200 mg/dL Desirable Cholesterol: less than 200 mg/dL Borderline High Cholesterol: 200-239 mg/dL High Cholesterol: greater than 239 mg/dL LDL Calculated 91 <100 mg/dL Desirable LDL: less than 100 mg/dL Near Optimal/Above Optimal LDL: 110-129 mg/dL Borderline High LDL: 130-159 mg/dL High LDL: 160-189 mg/dL Very High LDL: greater than or equal to 190 mg/dL HDL 50 >40 mg/dL Desirable HDL: greater than 40 mg/dL Note: This HDL assay may give artificially low results in patients with liver disease. Vit D 25-OH Tot 51.6 >30 ng/mL Health Based Reference Values* < 20 ng/mL Deficient 20-30 ng/mL Insufficient > 30 ng/mL Sufficient *Narendra HUNT. N Engl J Med. 2007;357:266-280 Care must be taken in interpreting Vitamin D results from different laboratories and methodologies. Published data demonstrated that results from patients undergoing hemodialysis may show a negative bias when tested with various automated 25-OH vitamin D assays when compared to LC-MS/MS. When testing samples from patients whose predominant form of Vitamin D is Vitamin D2, such as patients receiving Vitamin D2 supplementation, results that are subtherapeutic should be confirmed with another method such as LC-MS/MS. Free T4 0.89 0.71-1.85 ng/dL TSH 3rd Gen. 57.59 H 0.32-4.0 uIU/mL Note: A sustained TSH level above 2.5 uIU/mL may warrant further investigation. Coding Level of Care Code Tele Est Pt Level 3 (82525) Diagnoses Acquired hypothyroidism E03.9 Hypothyroidism type: acquired Assessment & Plan Assessment & Plan (1) Hypothyroidism: Code(s): E03.9 - Hypothyroidism, unspecified Category: Medical Qualifiers: Hypothyroidism type: acquired Qualified Code(s): E03.9 - Hypothyroidism, unspecified Plan: Refill sent for levothyroxine 125 mcg taken once a day in a.m. at least an hour before any food or drink. Advised to take calcium later in the afternoon together with her other medications. Repeat another TSH and free T4 in 6 weeks or towards the end of 06/28/2024. Patient would like to get the lab done at [facility] together with her other labs ordered by her oncologist. Will mail lab order to patient Orders: Orders Free T4 (Free Thyroxine) 07/02/24 E03.9 - Hypothyroidism, unspecified Thyroid Stimulating Hormone 07/02/24 E03.9 - Hypothyroidism, unspecified Medications: New levothyroxine 125 mcg PO DAILY 90 tabs 1RF Refilled lisinopril 10 mg PO DAILY 90 tabs 2RF I10 - Essential (primary) hypertension
--- OUTSIDE RECORDS SUMMARY | 2024-05-28 08:32 | XMS_ITS | Patient Health Record ---
Author Organization [facility] Address [address] [place] [address] Support Name Relationship Address Phone Meagan Scruggs Emergency Contact [address] [place] [address] Teodora Hartmann Guarantor Unknown Care Team Providers Care Business Development Engineer Name Role Phone Finesse MARQUEZ, Shantell Trinidad Primary Care Provider Un available Black, Nica Unavailable [phone] Allergies No Known Allergies Results Component Value [...] W/U Status Risk Notes Problem Plantar wart (74269071) Plantar wart (B07.0) Active confirmed Vital Signs Blood pressure diastolic 77 mm Hg 04/29/2024 Height 5ft 1in in 04/29/2024 Blood pressure systolic 130 mm Hg 04/29/2024 Weight 162 lbs 04/29/2024 BMI 30.61 kg/m2 04/29/2024 Procedures Procedure Date Ordered Date Performed Result Body Sit e 63243-Famz Destruction, 06-2202/04/2024 N/A 10097-Zhil Destruction, 06-2203/25/2024 N/A Encounters Encounter Location Date Provider Diagnosis [address] [address] 02/04/2024 Nica Black Pain in left foot M79.672 ; Pain in left ankle and joints of left foot M25.572 ; Bursitis of intermetatarsal bursa of left foot M77.52 ; Metatarsalgia, left foot M77.42 and Plantar wart B07.0 [facility] [address] 03/25/2024 Nica Black Pain in left foot M79.672 ; Metatarsalgia, left foot M77.42 ; Pain in left ankle and joints of left foot M25.572 ; Bursitis of intermetatarsal bursa of left foot M77.52 and Plantar wart B07.[address] [address] 04/29/2024 Nica Black Pain in left foot M79.672 ; Metatarsalgia, left foot M77.42 ; Pain in left ankle and joints of left foot M25.572 ; Bursitis of intermetatarsal bursa of left foot M77.52 and Plantar wart B07.0 [facility] [address] [address] 12/30/2023 Nica German [facility] [address] [address] 03/18/2024 Nica German Assessments Encounter Date Diagnosis [...] Treatment Pending Test Test Name Order Date 15459-Mwee Destruction, 1-14 02/04/2024 28382-Bwaq Destruction, 1-14 03/25/2024 Insurance Providers Payer Name Payer Address Payer Phone Subscriber Number Group Number Insured Name Patient Relationship to Insured Coverage Start Date Coverage End Date Medicare National Govt Svcs Inc [address] [place] [phone] [id number] Teodora Hartmann Self - patient is the insured [employer] [facility] [address] [place] [address] [phone] [id number] Teodora Hartmann Self - patient is the insured Medical (General) History Medical History History ICD Code Arthritis Back,Hip,and Knee pain Cancer Hypertension Numbness thyroid Measles Joint implants/screws Surgical History Surgery Date(Month/Year) knee surgery cancer eye surgery hysterectomy, total Hospitalization History Reason Date(Month/Year) fell, 2 fractures in right leg
--- OUTSIDE RECORDS SUMMARY | 2024-05-28 08:32 | XMS_ITS ---
Author Organization [facility] Address [address] [place] [address] Support Name Relationship Address Phone Meagan Scruggs Emergency Contact [address] [place], [place] [phone] Teodora Hartmann Guarantor Unknown Care Team Providers Care Commercial Green Building Designer Name Role Phone Finesse MARQUEZ, Shantell Trinidad Primary Care Provider Un available Black, Nica Unavailable [phone] Allergies No Known Allergies REASON FOR VISIT [...] 024 Encounters Encounter Location Date Provider Diagnosis [facility] [place] [address] [place] [address] 04/29/2024 Nicaabhijeet Greman Pain in left foot M79.672 ; Metatarsalgia, [...] Follow Up: prn, Reason: Progress Notes * VIOLETAJono KENNEYineDOB: [birth year] (68 yo F)Acc No.[id number]:04/29/2024 Progress Note Patient:Jono DOWNSine Provider:?Nica German DPM :1955???Age:68 Y???Sex:Female D ate:04/29/2024 Address:[address] [place] [address] MARILEE [id number] Pcp:Steph Jackson Subjective: * Chief Complaints: * [...] yes, walking. ?Marital status: . 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 ???Drug/Alcohol:?AUDIT-C (Standard)?Did you have a drink containing [...] German DPM Date:?2023 Generated for Audrey singh/Emily/Niravitting on:?05/28/2024 08:32 AM EST History and Physical Notes * [...] person, place, and t musa Vascular DP PULSES (B): 07/13 , B/L PT PULSES (B): 07/13, B/L
--- OUTSIDE RECORDS SUMMARY | 2024-05-28 08:32 | XMS_ITS ---
Author Organization [facility] Address [address] [place] [address] Support Name Relationship Address Phone Meagan Scruggs Emergency Contact [address] [place], [place] [phone] ShahbazJonoTeodora Guarantor Unknown Care Team Providers Care Business Systems Analyst Name Role Phone Finesse MARQUEZ, Shantell Trinidad Primary Care Provider Un available Maxi Nica Gr [phone] Encounters Encounter Location Date Provider Diagnosis [address] [address] 04/14/2024 Nica German Plan Of Treatment No Information Progress Notes * Jono HARTMANNineDOB: [birth year] (68 yo F)Acc No.[id number]:04/14/2024 Progress Note Patient:Teodora DOWNS Provider:?Nica German DPM :1955???Age:68 Y???Sex:Female D ate:04/14/2024 Address:[address] [place] [address] [id number] Pcp:Steph Jackson Subjective: * Chief Complaints: * ??? * Medical History:? Objective: * Vitals:? Assessment: Plan: * Treatment: * Images: * The named appointment provid er may or may not be the originator of this progress note, and it is not deemed complete until electronically signed by the appointment provider. Sign off status: Pending * Provider:?Nica German DPM Date:?2023 Generated for Printi samantha/Emily/eTransmitting on:?05/28/2024 08:32 AM EST
--- OUTSIDE RECORDS SUMMARY | 2024-05-28 08:32 | XMS_ITS ---
Author Organization [facility] Address [address] [place] [address] Support Name Relationship Address Phone Meagan Scruggs Emergency Contact [address] [place], [place] [phone] Teodora Hartmann Guarantor Unknown Care Team Providers Care Principle Industrial Hygienist Name Role Phone Finesse MARQUEZ, Shantell Trinidad Primary Care Provider Un available Black, Nica Unavailable [phone] Allergies No Known Allergies REASON FOR VISIT [...] Ordered Date Performed Result Body Sit e 24329-Xivm Destruction, -03/25/2024 N/A Encounters Encounter Location Date Provider Diagnosis [facility] [place] [address] [place] [address] 03/25/2024 Nica Black Pain in left foot [...] Treatment Pending Test Test Name Order Date 03410-Hmsv Destruction, -03/25/2024 Next Appt Details Follow Up: 3 Months, Reason: Procedure Notes * Category Sub-Category Detail Notes Wart Treatment Procedure Verrucae were de brided to pin-point bleeding margins with sterile 15 surgical blade, silver nitrate chemocautery applied, recomm. immune-boosting meds such as zinc, recomm. follow up with topical chemosurgical agents, Pt STILL, defers any other forms of tx (58074) Progress Notes * Jono HARTMANNineDOB: [birth year] (68 yo F)Acc No.[id number]:03/25/2024 Progress Note Patient:?Jono Hartmannine Provider:?Nica German DPM :1955???Age:68 Y???Sex:Female D ate:03/25/2024 Address:[address] [place] [address] Erin rich [id number] Pcp:Steph Jackson Subjective: * Chief Complaints: * [...] STILL, defers any other forms of tx (16717).? * Procedure Codes:?33795 Wart Destruction, 1-14, Modifiers: XS * Preventive [...] and t musa Vascular DP PULSES (B): 2 , B/L PT PULSES (B): 07/13, B/L
== END 2024-05-28 10:50 | disposition home or self-care (01) ==
LOC: HO.HMCC 08:30
PROVIDERS: PCP Internal Medicine; Visit Provider Internal Medicine
DX: E03.9 Hypothyroidism, unspecified (principal)

== ENCOUNTER 2024-07-12 08:45 | Outpatient (AMB) | payer MEDICARE, SELFPAY ==
--- OUTSIDE RECORDS SUMMARY | 2024-07-12 09:07 | XMS_ITS | Clinical Summary ---
Author Organization [facility], Address [address] [place] [address] Phone Care Team Providers Care Bindery Production Manager Name Role Phone Eber Kilpatrick MD Primary Care Provider [phone]- [phone] Allergies No known active allergies Medications ascorbic acid (VITAMIN C) 500 MG tablet Take 500 mg by mouth 1 (one) time each day Active atorvastatin (LIPITOR) 20 MG tablet Take 10 mg by mouth 1 (one) time each day Active Cholecalciferol (Vitamin D-3) 25 MCG (1000 UT) capsule Take by mouth Acti ve cyanocobalamin (VITAMIN B-12) 1000 MCG tablet Take 100 mcg by mouth 1 (one) time each day Active hydroCHLOROthia zide 25 MG tablet Take 25 mg by mouth 1 (one) time each day Active levothyroxine (SYNTHROID, LEVOTHROID) 100 MCG tablet Take 100 mcg by mouth 1 (one) time each day Active lisinopril 10 MG tablet Take 10 mg by mouth 1 (one) time each day Active Multiple Vitamin (multivitamin) capsule Take 1 capsule by mouth 1 (one) time each day Active traMADol-acetam inophen (Ultracet) 37.5-325 MG per tablet Take 1 tablet by mouth every 6 (six) hours if needed for moderate pain for up to 5 doses 5 tablet 09/26/2023 Active Active Problems Problem Noted Date Diagnosed Date Cataract 09/26/2023 Endometrial carcinoma 09/22/2023 Hyperlipidemia 09/22/2023 Hypertension 09/22/2023 Hypothyroidism 09/22/2023 Social History Tobacco Use Types Packs/Day Years Used Date Smoking Tobacco: Never Tobacco Cessation:Counseling Given: Not Answered Alcohol Use Standard Drinks/Week Comments Yes 0 (1 standard drink = 0.6 oz pur e alcohol) Comments Unknown Sex and Gender Information Value Date Recorded Sex Assigned at Not on file Legal Sex Female 2:41 PM EDT Gender Identity Not on file Sexual Orientation Not on file Last Filed Vital Signs Vital Sign Reading Time Taken Comments Blood Pressure 133/76 09/26/2023 8:58 AM EDT Pulse 98 09/26/2023 8:58 AM EDT Temperature 36.3 ??C (97.4 ??F) 09/26/2023 8:58 AM ED T Respiratory Rate 16 09/26/2023 8:58 AM EDT Oxygen Saturation 98% 09/26/2023 8:58 AM EDT Inhaled Oxygen Concentration - - Weight 77.1 kg (170 lb) 09/26/2023 8:58 AM EDT Height 157.5 cm (5' 2 ) 09/26/2023 8:58 AM EDT Body Mass Index 31.09 09/26/2023 8:58 AM EDT Plan of Treatment Health Maintenance Due Date Last Done Comments Breast Cancer Screening 1955 Pneumococcal Vaccine: 65+ Ye ars (1 of 2 - PCV) 10/23/1961 Colorectal Cancer Screening: Annual FOBT 2002 Colorectal Cancer Screening: Colonoscopy 2002 Colorectal Cancer Screening: Sigmoidoscopy 2002 Influenza Vaccine (#1) 2024 Hepatitis B Vaccine Aged Out No longe r eligible based on patient's [id number] MEDICARE [facility] Care Teams Bindery Production Manager Relationship Specialty Start Date End Date Eber Kilpatrick MD [address] [place] [phone] PCP - General Internal Medicine 09/10/23
[2024-07-12 09:09] VITALS: BP 142/70; PULSE 79; RESP 14; TEMP 36.7; O2SAT 98
--- NOTE | 2024-07-12 09:09 | MHC.PC.OV ---
Vital Signs 07/12/24 09:09 Weight 146 lb BP 142/70 H Blood Pressure Location Rt brachial Position Sitting Respiration 14 Pulse 79 Pulse Source Pulse Oximeter Temp 98.0 F Temp Source Oral Pulse Oximetry (%) 98 Oxygen Delivery Method Room Air Intake Visit Reasons: 2 months follow up Intake Note: Pt is here today for her 2mo. f/u Allergies No Known Allergies [No Known Allergies*] Allergy (Verified 07/12/24 09:48) Medication List - Last Reconciled 07/12/24 by Shantell Kilpatrick MD amlodipine 10 mg PO DAILY atorvastatin 10 mg PO DAILY biotin (Hair, Skin and Nails (biotin)) mcg PO calcium carbonate 600 mg PO BID cholecalciferol (vitamin D3) 50 mcg PO DAILY cyanocobalamin (vitamin B-12) 100 mcg PO DAILY lenvatinib 8 mg PO DAILY levothyroxine 125 mcg PO DAILY lisinopril 10 mg PO DAILY loperamide 2 mg PO DAILY PRN loratadine (Allergy Relief (loratadine)) 10 mg PO DAILY magnesium glycinate 100 mg PO DAILY 7 days multivitamin with folic acid 400 mcg (Daily-Neeraj (with folic acid)) 1 tab PO DAILY pembrolizumab (Keytruda) 200 mg IV Q3W Tobacco use date assessed: 05/28/24 Fall risk assessment: No Falls in past year Last assessed Fall Risk: 07/12/24 Dental Screening Dental Screen Date: 07/12/24 Did you have a dental visit in the last 12 months?: Yes Did you have a dental problem in the last 6 months where you did not have access to dental care?: No Was dental information given to patient?: Patient has dentist HPI 2 months follow up HPI Details - The patient is a 68-year-old female presenting with management of hypothyroidism, diarrhea, and nasal congestion. - Hypothyroidism: The patient is being treated with levothyroxine at 125 mcg, noting unchanged TSH levels of 0.89 in March. It is advised to increase this dose incrementally to 137 mcg for better control, and repeat thyroid levels again in 3 months. - Diarrhea: Following her complaint of irregular bowel movements, treatment with loperamide 2 mg twice daily initially resolved symptoms. A temporary cessation of medication, as advised, led to symptom recurrence. Regular dosing has since been reinstated. - Nasal Congestion: Patient experiences nasal obstructions, notably during the night. She is managing these symptoms with a humidifier but seeks further relief. - Elevated Blood Pressure: The patient's acknowledgment of elevated blood pressure suggests a need for ongoing monitoring. 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, stage 1 Seasonal allergies Postmenopausal bleeding Menopause Osteopenia of lumbar spine Hyperlipidemia Osteoarthritis, knee Hypothyroidism Hypertension Surgical History H/O colonoscopy Status post total hysterectomy and bilateral salpingo-oophorectomy History of total knee arthroplasty H/O arthroscopy of right knee H/O arthroscopy of left knee H/O arthroscopic knee surgery H/O blepharoplasty Family History Father Prostate cancer Heart disease Mother Diabetes mellitus Mother Skin cancer Social History Housing: House Alcohol intake: never Comment: cramping Patient Tobacco Use Status: Never used Tobacco e-Cigarette/Vaping Use: Never Used Advance Directives Date on File: 03/04/23 Current occupational status: retired Cognitive needs: No Hearing needs: No Vision needs: No Questionnaire PHQ-9 Over the last 2 weeks, how often have you been bothered by any of the following problems? 1. Little interest or pleasure in doing things: not at all 2. Feeling down, depressed, or hopeless: not at all 3. Trouble falling or staying asleep, or sleeping too much: not at all 4. Feeling tired or having little energy: not at all 5. Poor appetite or overeating: not at all 6. Feeling bad about yourself - or that you are a failure or have let yourself or your family down: not at all 7. Trouble concentrating on things, such as reading the newspaper or watching television: not at all 8. Moving or speaking so slowly that other people could have noticed. Or the opposite - being so fidgety or restless that you have been moving around a lot more than usual: not at all 9. Thoughts that you would be better off or of hurting yourself in some way: not at all Total score: 0 Depression Screening Interpretation: Negative Depression Screening Done: Yes 03133 - PHQ-9 Billing: Yes Source: Developed by Drs. Jay Mann, Stefanie Hawkins, Delonte Nichols and colleagues, with an educational porfirio from [employer]. Thrive Questionnaire Date Thrive assessed: 07/12/24 I am a: Patient What is your living situation today?: I have a steady place to live Within the past 12 months, did the food you bought not last and you didn't have the money to get more?: Never true Within the past 12 months, did you worry whether your food would run out before you got money to buy more?: Never true Do you have trouble paying for medicines?: No Do you have trouble getting transportation to medical appointments?: No Do you have trouble paying your heating and electricity bill?: No Do you have trouble taking care of your child, family member or friend?: No Do you have trouble with day-to-day activities such as bathing, preparing meals, shopping, managing finances, etc.?: No Are you currently unemployed and looking for a job?: No Are you interested in more education?: No Please select the resources that you would like help with: None Currently or been in a relationship where the following occur: No concerns reported THRIVE Score: 0 AUDIT C Alcohol Use Questionnaire (AUDIT-C) 1. How often do you have a drink containing alcohol?: Never Total Score: 0 HUSSAIN-7 AMB Questionnaire HUSSAIN-7 Date HUSSAIN - 7 assessed: 07/12/24 Feeling nervous, anxious, or on edge: 0 = Not at all Not being able to stop or control worryin = Not at all Worrying too much about different things: 0 = Not at all Trouble relaxin = Not at all Being so restless that it is hard to sit still: 0 = Not at all Becoming easily annoyed or irritable: 0 = Not at all Feeling afraid as if something awful might happen: 0 = Not at all Total HUSSAIN-7 score (0-4 normal; 5-9 mild; 10-14 moderate; 15-21 severe): 0 Source: Developed by Drs. Jay Mann, Stefanie Hawkins, Delonte Nichols and colleagues, with an educational porfirio from [employer]. HUSSAIN-7 Assessment Billing HUSSAIN-7 Assessment Tool: HUSSAIN-7 Assessment 74918 Review of Systems Const All systems reviewed & are unremarkable except as noted in HPI and below Physical exam (Primary Care) Vital Signs: Last Vital Signs Temp 98.0 F 07/12/24 09:09 Pulse 79 07/12/24 09:09 Resp 14 07/12/24 09:09 BP 142/70 H 07/12/24 09:09 Pulse Ox 98 07/12/24 09:09 Oxygen Delivery Method Room Air 07/12/24 09:09 Tobacco/Smoking Status: Tobacco use Status Tobacco use date assessed 05/28/24 07/12/24 09:15 Patient Tobacco Use Status Never used Tobacco 07/12/24 09:15 e-Cigarette/Vaping Use Never Used 07/12/24 09:15 PHQ-9: PHQ-9 Score PHQ-9: Total score 0 07/12/24 09:53 Depression Screening Interpretation: Negative Thrive Assessment: Date of Thrive Assessment Date Thrive assessed 07/12/24 07/12/24 09:15 Currently or been in a relationship where the following occur: No concerns reported Const General: comfortable, no acute distress and alert Orientation/consciousness: patient oriented x3 HENMT Head: Yes normocephalic Ears: external ears normal General nose exam: Normal external nose present Face and sinus: Yes face symmetric Eyes General: appearance normal, both eyes and all related structures Neck Neck: Yes full ROM, Yes no lymphadenopathy and Yes supple Thyroid: Thyroid normal Resp Auscultation: clear to auscultation bilaterally Cardio Other: S1-S2 present regular rate and rhythm GI Palpation (GI): Soft to palpation, nontender, no guarding and no masses General: Yes no CVA tenderness Back/Spine/Pelvis Back: no CVA tenderness and No back tenderness Skin General skin exam: no rashes or lesions noted Neuro General: patient oriented x3, gait normal, moves all extremities, Normal light touch and pain sensation, no focal motor deficits and CN's II-XI intact bilaterally Extrem General: Yes full ROM, Yes no joint enlargement, Yes no pedal edema and Yes no calf tenderness Results Reviewed Results Reviewed: Name: Teodora Hartmann Age/Sex: 68/F [facility] 1955 [id number] [id number] Attend Dr: Shantell Kilpatrick MD Re05/21/24 Status: DEP REF Location: [facility] [address] Disch: SPEC : [id number] AMNA: 05/21/24 STATUS: COMP REQ : [id number] RECD: 05/21/24-[address]: Shantell Kilpatrick MD COMP: 05/21/24 ENTERED: 05/21/[address]: ORDERED: Met Prof Fast, AST, ALT, Lipid Panel, Vitamin D 25-OH, Free T4, TSH Test Result Flag Reference Sodium 140 135-145 mmol/L Potassium 3.5 3.3-5.1 mmol/L CL 103 96-108 mmol/L CO2 28 22-29 mmol/L Gap 13 12-20 BUN 9 9-16 mg/dL Creat 0.67 0.5-1.4 mg/dL eGFR > 60 Chronic Kidney Disease: Estimated GFR < 60 mL/min/1.73m2 Severe Kidney Disease: Estimated GFR < 15 mL/min/1.73m2 FBS 89 60-99 mg/dL CA 9.3 # 8.4-10.2 mg/dL AST (GOT) 31 5-31 U/L ALT (GPT) 20 0-31 U/L Triglyceride 151 H <150 mg/dL Desirable Triglyceride: less than 150 mg/dL Borderline High Triglyceride 150-199 mg/dL High Triglyceride: 200-499 mg/dL Very High Triglyceride: greater than or equal to 5OO mg/dL Cholesterol 171 <200 mg/dL Desirable Cholesterol: less than 200 mg/dL Borderline High Cholesterol: 200-239 mg/dL High Cholesterol: greater than 239 mg/dL LDL Calculated 91 <100 mg/dL Desirable LDL: less than 100 mg/dL Near Optimal/Above Optimal LDL: 110-129 mg/dL Borderline High LDL: 130-159 mg/dL High LDL: 160-189 mg/dL Very High LDL: greater than or equal to 190 mg/dL HDL 50 >40 mg/dL Desirable HDL: greater than 40 mg/dL Note: This HDL assay may give artificially low results in patients with liver disease. Vit D 25-OH Tot 51.6 >30 ng/mL Health Based Reference Values* < 20 ng/mL Deficient 20-30 ng/mL Insufficient > 30 ng/mL Sufficient *Narendra HUNT. N Engl J Med. 2007;357:266-280 Care must be taken in interpreting Vitamin D results from different laboratories and methodologies. Published data demonstrated that results from patients undergoing hemodialysis may show a negative bias when tested with various automated 25-OH vitamin D assays when compared to LC-MS/MS. When testing samples from patients whose predominant form of Vitamin D is Vitamin D2, such as patients receiving Vitamin D2 supplementation, results that are subtherapeutic should be confirmed with another method such as LC-MS/MS. Free T4 0.89 0.71-1.85 ng/dL TSH 3rd Gen. 57.59 H 0.32-4.0 uIU/mL Note: A sustained TSH level above 2.5 uIU/mL may warrant further investigation. TSH 3rd Generation ([facility]) Coding Level of Care Code Est Pt Level 4 (77531) Complex EM visit Add On G2211 Diagnoses Acquired hypothyroidism E03.9 Hypothyroidism type: acquired Additional Codes PHQ-9 - 65539 - PHQ-9 Billing: Yes ([id number]) HUSSAIN-7 Assessment Billing - HUSSAIN-7 Assessment Tool: HUSSAIN-7 Assessment 02098 ([id number]) Assessment & Plan Assessment & Plan (1) Hypothyroidism: Code(s): E03.9 - Hypothyroidism, unspecified Category: Medical Qualifiers: Hypothyroidism type: acquired Qualified Code(s): E03.9 - Hypothyroidism, unspecified Plan The patient's levothyroxine will be adjusted to 137 mcg, with a re-evaluation due in two to three months to ensure thyroid stability. The patient experiences relief from diarrhea with consistent loperamide use; hence, the dosing will continue as previously effective. Introduction of a beclomethasone nasal spray will address nasal congestion issues, combined with patient instructions for optimal nasal spray application. Given the ineffectiveness of loratadine, it is discontinued. The patient's elevated blood pressure requires monitoring, and advice includes reducing the magnesium supplement to a 200 mg dose to prevent diarrhea exacerbations. Patient was informed and verbally consented to the use of an ambient scribe for clinic note documentation during this visit. Orders: Orders Free T4 (Free Thyroxine) 09/07/24 E03.9 - Hypothyroidism, unspecified Thyroid Stimulating Hormone 09/07/24 E03.9 - Hypothyroidism, unspecified Medications: New beclomethasone dipropionate 80 mcg/actuation administer into one nostril 2 sprays intranasal DAILY PRN 10.6 grams 0RF nasal congestion Changed From levothyroxine 125 mcg PO DAILY 90 tabs 1RF E03.9 - Hypothyroidism, unspecified To levothyroxine 137 mcg PO DAILY 90 tabs 1RF E03.9 - Hypothyroidism, unspecified Discontinued fluticasone propionate 50 mcg/actuation Discontinued Reason: Entered in error 1 inh inhalation Q12H 60 ea 1RF
== END 2024-07-12 13:56 | disposition home or self-care (01) ==
PROVIDERS: PCP Internal Medicine; Visit Provider Internal Medicine
DX: E03.9 Hypothyroidism, unspecified (principal)

== ENCOUNTER → 2024-07-12 08:45 | Outpatient (BNVA) | payer MEDICARE, SELFPAY | PROVIDERS: PCP Internal Medicine; Visit Provider Internal Medicine | DX: E03.9 Hypothyroidism, unspecified (principal) | CPT/HCPCS: 96127; 99212 ==

== ENCOUNTER 2024-08-02 14:22 | Outpatient (AMB) | payer MEDICARE, SELFPAY ==
[2024-08-02 15:17] VITALS: BP 132/74; PULSE 86; TEMP 36.6; O2SAT 98
--- NOTE | 2024-08-02 15:17 | AM.OFFWIN_ITS ---
Intake Vital Signs 08/02/24 15:17 Height 5 ft 1.5 in BP 132/74 Blood Pressure Location Lt brachial Position Sitting Pulse 86 Pulse Source Pulse Oximeter Temp 97.8 F Temp Source Oral Pulse Oximetry (%) 98 Intake Visit Reasons: EP needs ears flushed Intake Note: pt is here for feeling like she hears in a distance, she got water in her ears in shower and its been bothering her since. patient feels head congestion Patient Tobacco Use Status: Never used Tobacco Allergies No Known Allergies [No Known Allergies*] Allergy (Verified 08/02/24 15:17) Do you need a note to return to daycare/school/sports/work: No HPI HPI Comments History of Present Illness Details History of Present Illness - The patient is a 68-year-old female pr esenting with ear discomfort and auditory disturbance. - She experienced water exposure to the ear during a shower a few weeks ago, resulting in ongoing auditory issues. - Describes these auditory sensations as echoey and distant-sounding. - Previously advised by another doctor t o consider ear flushing. - Allergic rhinitis has been partially m anaged with nasal sprays including Flonase and subsequently Qnasal. - Recent adjustments were made to her th yroid medication regimen with an increased dosage. Physical Exam General: Cooperative, healthy appearing, comfortable, no acute distress and well developed Orientation: Patient oriented x3 Limitations: No limitations Head: Normal to inspection Ears: Hearing impaired due to wax buildup in both ears Nose: Normal external nose present, but patient reports congestion Face and sinus: Normal facial exam Eyes: Appearance normal, both eyes and all related structures Neck: Normal visual inspection and Yes full ROM Respiratory: Normal respiratory effort and able to speak in complete sentences. Clear to auscultation bilaterally Cardiovascular: Regular rate and rhythm. 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, stage 1 Seasonal allergies Postmenopausal bleeding Menopause Osteopenia of lumbar spine Hyperlipidemia Osteoarthritis, knee Hypothyroidism Hypertension Surgical History H/O colonoscopy Status post total hysterectomy and bilateral salpingo-oophorectomy History of total knee arthroplasty H/O arthroscopy of right knee H/O arthroscopy of left knee H/O arthroscopic knee surgery H/O blepharoplasty Family History Father Prostate cancer Heart disease Mother Diabetes mellitus Mother Skin cancer Social History Housing: House Alcohol intake: never Comment: cramping Patient Tobacco Use Status: Never used Tobacco e-Cigarette/Vaping Use: Never Used Advance Directives Date on File: 03/04/23 Current occupational status: retired Cognitive needs: No Hearing needs: No Vision needs: No Review of Systems Const All systems reviewed & are unremarkable except as noted in HPI and below Physical Exam Vital Signs: Last Vital Signs Temp 97.8 F 08/02/24 15:17 Pulse 86 08/02/24 15:17 BP 132/74 08/02/24 15:17 Pulse Ox 98 08/02/24 15:17 Office Procedures Cerumen Removal From which ear canal was the cerumen removed: bilateral Removal: irrigation Notes: patient tolerated procedure well, no complications and ear canal clear [id number] Irrigation/Lavage Assessment & Plan Assessment & Plan (1) Impacted cerumen of both ears: Code(s): H61.23 - Impacted cerumen, bilateral Plan: Plan Management of ear discomfort is focused on ear irrigation and scooping to address cerumen impaction. Bilateral ear canals are cleared and patient reports improved hearing. Allergic rhinitis is being tackled with nasal sprays, potentially transitioning to Qnasal for optimal relief as her PCP sent this to her pharmacy but she never picked it up. Patient was informed and verbally consented to the use of an ambient scribe for clinic note documentation during this visit. Coding Level of Care Code Est Pt Level 4 (93001) Diagnoses Impacted cerumen of both ears H61.23 CPT Codes Office Procedure - CPT: 67142-Wxn Irrigation/Lavage ([id number])
--- OUTSIDE RECORDS SUMMARY | 2024-08-02 16:34 | XMS_ITS | Clinical Summary ---
Author Organization [facility], Address [address] [place] [address] Phone Care Team Providers Care Colon Therapist Name Role Phone Eber Kilpatrick MD Primary Care Provider +1- [phone] Allergies No known active allergies Medications ascorbic [...] patient's [id number] MEDICARE [facility] Care Teams Colon Therapist Relationship Specialty Start Date End Date Eber Kilpatrick MD [address] [place] [id number] PCP - General Internal Medicine 09/10/23
--- OUTSIDE RECORDS SUMMARY | 2024-08-02 16:34 | XMS_ITS | Patient Health Record ---
Author Organization [facility] Address [address] [place] [address] Support Name Relationship Address Phone Meagan Scruggs Emergency Contact [address] [place] [address] Teodora Hartmann Guarantor Unknown Care Team Providers Care Architectural Project Manager Name Role Phone Finesse MARQUEZ, Shantell Trinidad Primary Care Provider Un available Black, Nica Unavailable [phone] Allergies No Known Allergies Results Component Value Reference Range Notes X ray : Foot, left 3V Reviewed date:02/04/2024 02:25:53 PM Interpretation:See Examination above Performing Lab: Notes/Report: See Examination above Reason For Referral No Information Medications Medication SIG (Take, Route, Frequency, Duration) Notes Start Date End Date Status Ammonium Lactate 12 % 1 application Externally to affected areas of dry skin to feet except for between the toes Twice a day for 30 days Active Lisinopril 10 MG Oral for 90 Days Active Levothyroxine Sodium 100 MCG as directed Oral Once a day for 90 days Active Prochlorperazine Maleate 10 MG Oral for 7 Days prn Active Vitamin B-12 100 MCG TAKE ONE TABLET BY MOUTH EVERY DAY Oral for 90 Days Active hydroCHLOROthiazide 25 MG TAKE ONE TABLE T BY MOUTH EVERY MORNING Oral for 90 Days Not-Taking Atorvastatin Calcium 10 MG TAKE ONE TABL ET BY MOUTH EVERY DAY Oral for 90 Days Active D3 High Potency 50 MCG (2000 UT) TAKE ONE CAPSULE BY MOUTH EVERY DAY Oral for 90 Days Active Multivitamin Active amLODIPine Besylate 10 MG TAKE ONE TABLE T BY MOUTH EVERY NIGHT AT BEDTIME Oral for 30 days Active Lenvima (10 MG Daily Dose) Active Keytruda Active Social History Tobacco Use: Social History [...] W/U Status Risk Notes Problem Plantar wart (81242713) Plantar wart (B07.0) Active confirmed Vital Signs Blood pressure diastolic 78 mm Hg 07/01/2024 Height 5ft1in in 07/01/2024 Blood pressure systolic 130 mm Hg 07/01/2024 Weight 160 lbs 07/01/2024 BMI 30.23 kg/m2 07/01/2024 Procedures Procedure Date Ordered Date Performed Result Body Sit e 28152-Cdnk Destruction, 06-2202/04/2024 N/A 18916-Ctow Destruction, 06-2203/25/2024 N/A 71533-Tjsq Destruction, 06-2207/01/2024 N/A Encounters Encounter Location Date Provider Diagnosis [address] [address] 02/04/2024 Nica Black Pain in left foot M79.672 ; Pain in left ankle and joints of left foot M25.572 ; Bursitis of intermetatarsal bursa of left foot M77.52 ; Metatarsalgia, left foot M77.42 and Plantar wart B07.[address] [address] 03/25/2024 Nica Black Pain in left foot M79.672 ; Metatarsalgia, left foot M77.42 ; Pain in left ankle and joints of left foot M25.572 ; Bursitis of intermetatarsal bursa of left foot M77.52 and Plantar wart B07.[address] [place] [address] 04/29/2024 Nica Black Pain in left foot M79.672 ; Metatarsalgia, left foot M77.42 ; Pain in left ankle and joints of left foot M25.572 ; Bursitis of intermetatarsal bursa of left foot M77.52 and Plantar wart B07.[address] [address] 07/01/2024 Nica Black Right foot pain M79. 671 ; Plantar wart B07.0 ; Left foot pain M79.672 and Xerosis of skin L85.[address] [address] 12/30/2023 [facility] [address] 03/18/2024 Nica Black [address] [address] 07/01/2024 Nica Black Assessments Encounter Date Diagnosis (ICD Code) Assessment [...] Pain in left foot (ICD-10 - M79.672) 07/01/2024 Right foot pain (ICD-10 - M79.671) 04/29/2024 Pain in left ankle and joints of left foot (ICD-10 - M25.572) 03/25/2024 Pain in left ankle and joints of left foot (ICD-10 - M25.572) 02/04/2024 Bursitis of intermetatarsal bursa of left foot (ICD-10 - M77.52) 07/01/2024 Plantar wart (ICD-10 - B07.0) 07/01/2024 Left foot pain (ICD-10 - M79.672) 02/04/2024 Metatarsalgia, left foot (ICD-10 - M77.42) 03/25/2024 Bursitis of intermetatarsal bursa of left foot (ICD-10 - M77.52) 04/29/2024 Bursitis of intermetatarsal bursa of left foot (ICD-10 - M77.52) 07/01/2024 Xerosis of skin (ICD-10 - L85.3) 04/29/2024 Plantar wart (ICD-10 - B07.0) 02/04/2024 Plantar wart (ICD-10 - B07.0) 03/25/2024 Plantar wart (ICD-10 - B07.0) Plan Of Treatment Pending Test Test Name Order Date 60914-Srif Destruction, 1-14 02/04/2024 59735-Yvjs Destruction, -14 03/25/2024 62526-Yfif Destruction, 1-14 07/01/2024 Next Appt Details Provider Name:Nica German , 09/09/2024 08:15:00 AM, [address] [facility], [place], [address], Insurance Providers Payer Name Payer Address Payer Phone Subscriber Number Group Number Insured Name Patient Relationship to Insured Coverage Start Date Coverage End Date Medicare National Govt Svcs Inc [address] [place] [address] [id number] Teodora Hartmann Self - patient is the insured [employer] Blue Shield [address] [place] [address] [phone] [id number] 2 Teodora Hartmann Self - patient is the insured Medical (General) History Medical History History ICD Code Arthritis Back,Hip,and Knee pain Cancer Hypertension Numbness thyroid Measles Joint implants/screws Surgical History Surgery Date(Month/Year) knee surgery cancer eye surgery hysterectomy, total biopsy breast Hospitalization History Reason Date(Month/Year) fell, 2 fractures in right leg
--- OUTSIDE RECORDS SUMMARY | 2024-08-02 16:35 | XMS_ITS ---
Author Organization [facility] Address [address] [place] [address] Support Name Relationship Address Phone Meagan Scruggs Emergency Contact 646[address] [place], [place] [phone] Teodora Hartmann Guarantor Unknown Care Team Providers Care Product Promoter Retail Pet Name Role Phone Finesse MARQUEZ, Shantell Trinidad Primary Care Provider Un available Black, Nica Unavailable [phone] Allergies No Known Allergies REASON FOR VISIT Wart(s), Skin problem(s) Medications Medication SIG (Take, Route, Frequency, Duration) Notes Start Date End Date Status Ammonium Lactate 12 % 1 application Externally to affected areas of dry skin to feet except for between the toes Twice a day for 30 days Active Vitamin B-12 100 MCG TAKE ONE [...] MG Oral for 7 Days prn Active Multivitamin Active amLODIPine Besylate 10 MG [...] Additional Findings: Tobacco non-user Current no nsmoker Vital Signs Height 5ft1in in 07/01/2024 Weight 160 lbs 07/01/2024 BMI 30.23 kg/m2 07/01/2024 Blood pressure systolic 130 mm Hg 07/01/19 25 Blood pressure diastolic 78 mm Hg 025 Procedures Procedure Date Ordered Date Performed Result Body Sit e 04498-Eqgt Destruction, 1-14 07/01/2024 N/A Encounters Encounter Location Date Provider Diagnosis [facility] [address] [place] [address] 07/01/2024 Nica German Right foot pain M79.671 ; Plantar wart B07.0 ; Left foot pain M79.672 and Xerosis of skin L85.3 Assessments Encounter Date Diagnosis (ICD Code) Assessment Notes Treatment Notes Treatment Clinical Notes Section Notes 07/01/2024 Right foot pain (ICD-10 - M79.671) 07/01/2024 Plantar wart (ICD-10 - B07.0) 07/01/2024 Left foot pain (ICD-10 - M79.672) 07/01/2024 Xerosis of skin (ICD-10 - L85.3) Plan Of Treatment Medication Medication Name Sig Start Date Stop Date Notes Ammonium Lactate 12 % 1 application Exte rnally to affected areas of dry skin to feet except for between the toes Twice a day for 30 days Pending Test Test Name Order Date 88301-Mkjr Destruction, 1-14 07/01/2024 Next Appt Details Provider Name:Nica German , 09/09/2024 08:15:00 AM, [address] [place], [address], Procedure Notes * Category Sub-Category Detail Notes Wart Treatment Procedure Verruca, as desc ribed in exam, were debrided to pin- point bleeding margins with sterile 15 surgical blade, silver nitrate chemocautery applied, recomm. immune-boosting meds such as zinc, recomm. follow up with topical chemosurgical agents, recomm. Wartstick 40 percent Salicylic acid application under occlusion as directed, - 08487 Progress Notes * Amirah HARTMANNOB: [birth year] (68 yo F)Acc No.[id number]:07/01/2024 Progress Note Patient:Teodora DOWNS Provider:?Nica German DPM :1955???Age:68 Y???Sex:Female D ate:07/01/2024 Address:[address] [place] [address] [facility] Pcp:Steph Jackson Subjective: * Chief Complaints: * ???Wart(s)Skin problem(s) * HPI: ???Skin problems:?Pt States PCP Visit: ?DATE?04/28/2024 ?Nature:?dryness , scaling.?Location:?B/L .?Duration:?several days.?Course:?worse.? * ROS:?General/Constitutional:?Nausea?denies.?Vomiting?denies.?Hunger Thirst?denies.?Loss appetite?denies.?Chills?denies.?Fatigue?denies.?Fever?denies.?Night Sweats?denies.?Unexplained weight loss?denies.?Unexplained [...] surge ry cancer eye surgery hysterectomy, total biopsy breast * Hospitalization/Major Diagno stic Procedure:?fell, 2 fractures in right leg * Family History:?Mother: dece ased.?Father: .? * Social History:?Tobacco Use:?Tobacco use other than smoking?Are you an other tobacco user??No ?Tobacco Control (Standard)?Tobacco use:?Nonsmoker ?Additional Findings: Tobacco non-user?Current nonsmoker ???Miscellaneous:?Caffeine: no, frequency: decaff coffee, decaff tea, diet soda. ?Children: no. ?Exercise: yes, walking. ?Marital status: . 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 * Medications:?TakingLenvima ( 10 MG Daily Dose) [...] * Vitals:?Ht: 5ft1in, Wt:160, BMI:30.23, Shoe size: 9, BP:130/78mm Hg, Ht-cm: 154.94 cm, Wt-k.58 kg. * Examination: ???General Examination: ?GENERAL APPEARANCE:?Reveals a pleasant, alert, well nourished, well- developed, well hydrated individual, who demonstrates proper attention to hygiene/body habitus, and is in no acute distress, Pt serves as own historian for office visit today.?ORIENTED:?person, place, and time.?Dermatologic: ?SKIN FINDINGS:?Skin shows sign(s) of, dryness, scaling, in a stocking fashion, no fissure(s) present, B/L.?VERRUCA:?Reveals a Single , multi-loculated , mosaic-patterned, round, raised, flat-topped, petechial bleeding papule(s), with cauliflower appearance and interruption of skin lines, pain to lateral compression, and size estimated at 5 mm diameter, plantar Forefoot, LEFT.?Neurological: ?SENSORY:?Neurological exam reveals intact sensorium, pain sensation normal, vibration sensation intact, pinprick sensation is normal in the lower extremities, Pt denies, anesthesia, burning, paresthesia, tingling, B/L.?Vascular: ?DP PULSES (B):?2/4 , B/L.?PT PULSES (B):?2/4, B/L.? Assessment: * Assessment: 1.?Right foot pain - M79.671 ???2.?Plantar wart - B07.0 (Primary)???3.?Left foot pain - M79.672???4.?Xerosis of skin - L85.3???Specify :Acute problem, Uncomplicated (3),Rx Management (4)??? Plan: * Treatment: 2.?Xerosis of skin? Start Ammonium Lactate Cream, 12 %, 1 application, Externally to affected areas of dry skin to feet except for between the toes, Twice a day, 30 days, 280, Refills 3.?? * Procedures:?Wart Treatment:?Procedure?Verruca, as described in exam, were debrided to pin-point bleeding margins with sterile 15 surgical blade, silver nitrate chemocautery applied, recomm. immune-boosting meds such as zinc, recomm. follow up with topical chemosurgical agents, recomm. Wartstick 40 percent Salicylic acid application under occlusion as directed, - 63007.? * Procedure Codes:?01353 Wart Destruction, 1-14, Modifiers: XS * Preventive Medicine:? ??Counseling:?Discussion:?-13: Office or other [...] have encouraged the patient to call the office.?Xerosis:?The patient was counseled on the diagnosis, potential etiologies, and treatment options for their skin condition. We discussed the risks and benefits of each option from performing no treatment, to utilizing OTC topical skin creams/ointments, to utilizing prescription topical creams/ointments, to utilizing customized compounded topical medications and use of nocturnal occlusion with any/all previously detailed therapies. We discussed the advantages and disadvantages of each possible treatment and importance for adherence to all the recommended therapies for optimum success and avoid potential complications such as open sore/infection/possible hospitalization. We discussed the potential effectiveness of each topical preparation as well as each ones possible side effects and/or patient medication interactions. Patient questions re: use, dosage, successful outcomes, and application consistency were reviewed and the patient verbalized that all answers were clearly understood. The patient has decided to apply Rx skin creams to their feet save the interspaces while paying special attention to the heels. Such was sent to their pharmacy at the time of visit.? ??Screening/Special Tests:?Fall Risk?Screening:?No falls in the past year ?FALLS: Screening for Future Fall Risk?Have you had any falls with injury in the past year??No * Images: * Sign off status: Completed true * Provider:?Nica German DPM Date:?2024 Generated for Audrey singh/Emily/Ravi on:?08/02/2024 04:34 PM EST History and Physical Notes * HPI (History of Present Illness) Category Sub-Category Detail Notes Category Not es Skin problems Nature: dryness , scaling Location: B/L Duration: several days Course: worse Pt States PCP Visit: DATE: 04/28/2024 Examination Category Sub-Category Detail Notes Category Not es Neurological SENSORY: Neurological exa m reveals intact sensorium, pain sensation normal, vibration sensation intact, pinprick sensation is normal in the lower extremities, Pt denies, anesthesia, burning, paresthesia, tingling, B/L Dermatologic SKIN FINDINGS: Skin shows sign( s) of, dryness, scaling, in a stocking fashion, no fissure(s) present, B/L VERRUCA: Reveals a Single , m ulti-loculated , mosaic-patterned, round, raised, flat-topped, petechial bleeding papule(s), with cauliflower appearance and interruption of skin lines, pain to lateral compression, and size estimated at 5 mm diameter, plantar Forefoot, LEFT General Examination GENERAL APPEARANCE: Reveals a pleasant, alert, well nourished, well-developed, well hydrated individual, who demonstrates proper attention to hygiene/body habitus, and is in no acute distress, Pt serves as own historian for office visit today ORIENTED: person, place, and t musa Vascular DP PULSES (B): 2/4 , B/L PT PULSES (B): 2/, B/L
--- OUTSIDE RECORDS SUMMARY | 2024-08-02 16:35 | XMS_ITS ---
Author Organization [facility] Address [address] [place] [address] Support Name Relationship Address Phone Meagan Scruggs Emergency Contact [address] [place], [place] [phone] Teodora Hartmann Guarantor Unknown Care Team Providers Care Appliance Repair Technician Name Role Phone Finesse MARQUEZ, Shantell Trinidad Primary Care Provider Un available Nica German Unavailable [phone] REASON FOR VISIT Wart Stick Encounters Encounter Location Date Provider Diagnosis [facility] [address] [place] [address] 07/01/2024 Nica Maxi Plan Of Treatment Next Appt Details Provider Name:Nica Kunz Maxi , 09/09/2024 08:15:00 AM, [address] [place], [address], Progress Notes * Jono HARTMANNineDOB: [birth year] (68 yo F)Acc No.[id number]:07/01/2024 Patient:?Teodora HARTMANN :1955???Age:68 Y???Sex:Female Address[facility] [place], [place] [address] [place], [address] * true * Date:? Generated for Printi ng/Fadonnag/eTransmitting on:?08/02/2024 04:34 PM EST
--- OUTSIDE RECORDS SUMMARY | 2024-08-02 16:35 | XMS_ITS ---
Author Organization [facility] Address [address] [place] [address] Support Name Relationship Address Phone Meagan Scruggs Emergency Contact [address] [place], [place] [phone] Teodora Hartmann Guarantor Unknown [phone] Care Team Providers Care Unix Manager Name Role Phone Finesse MARQUEZ, Shantell Trinidad Primary Care Provider Un available Black, Nica Unavailable [phone] Allergies No Known Allergies REASON FOR VISIT [...] 024 Encounters Encounter Location Date Provider Diagnosis [facility] [address] [address] 04/29/2024 Nica German Pain in left foot M79.672 ; [...] Next Appt Details Follow Up: prn, Reason: Provider Name:Nica Kunz Maxi , 09/09/2024 08:15:00 AM, [address] [place] [address], [address], Progress Notes * Amirah HARTMANNOB: [birth year] (68 yo F)Acc No.[id number]:04/29/2024 Progress Note Patient:?Teodora HARTMANN Provider:?Nica German DPM :1955???Age:68 Y???Sex:Female D ate:04/29/2024 Address: [id number] Pcp:Steph Jackson Subjective: * Chief Complaints: * [...] yes, walking. ?Marital status: . 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 ???Drug/Alcohol:?AUDIT-C (Standard)?Did you have a drink containing [...] Provider:?Nica German DPM Date:?2023 Generated for Audrey singh/Emily/Ravi on:?08/02/2024 04:35 PM EST History and Physical Notes * [...]
== END 2024-08-02 16:14 | disposition home or self-care (01) ==
PROVIDERS: PCP Internal Medicine; Visit Provider Physician Assistant
DX: R09.89 Other specified symptoms and signs involving the circulatory and respiratory systems (principal); H61.23 Impacted cerumen, bilateral

== ENCOUNTER → 2024-08-02 14:22 | Outpatient (BNVA) | payer MEDICARE, SELFPAY | PROVIDERS: PCP Internal Medicine | DX: H61.23 Impacted cerumen, bilateral (principal) | CPT/HCPCS: 69209; 99212 ==

== ENCOUNTER 2024-09-10 08:00 | Outpatient (AMB) | payer MEDICARE, SELFPAY ==
--- OUTSIDE RECORDS SUMMARY | 2024-09-10 08:08 | XMS_ITS | Clinical Summary ---
Author Organization [facility], Address [address] [place] [address] Phone Care Team Providers Care Health Care Technician Name Role Phone Eber Kilpatrick MD Primary Care Provider [phone] Allergies No known active allergies Medications ascorbic [...] Colorectal Cancer Screening: Sigmoidoscopy 2002 Influenza Vaccine (Season Ended) 2025 Hepatitis B Vaccine Aged Out No longe r eligible based on patient's age [place] [id number] MEDICARE [facility] Care Teams Health Care Technician Relationship Specialty Start Date End Date Eber Kilpatrick MD [address] [place] [address] PCP - General Internal Medicine 09/10/23
--- OUTSIDE RECORDS SUMMARY | 2024-09-10 08:08 | XMS_ITS | Patient Health Record ---
Author Organization [facility] Address [address] [place] [address] Support Name Relationship Address Phone Meagan Scruggs Emergency Contact [address] [place] [address] Teodora Hartmann Guarantor Unknown [phone] Care Team Providers Care Embedded Software Architect Name Role Phone Finesse MARQUEZ, Shantell Trinidad Primary Care Provider Un available Black, Nica Unavailable [phone] Allergies No Known Allergies Results Component Value Reference Range Notes X ray : Foot, left 3V Reviewed date:02/04/2024 02:25:53 PM Interpretation:See Examination above Performing Lab: Notes/Report: See Examination above Reason For Referral No Information Medications Medication SIG (Take, Route, Frequency, Duration) Notes Start Date End Date Status Vitamin B-12 100 MCG TAKE ONE TABLET BY MOUTH EVERY DAY Oral for 90 Days Active D3 High Potency 50 MCG (2000 UT) TAKE ONE CAPSULE BY MOUTH EVERY DAY Oral for 90 Days Active Atorvastatin Calcium 10 MG TAKE ONE TABL ET BY MOUTH EVERY DAY Oral for 90 Days Active Lisinopril 10 MG Oral for 90 Days Active Multivitamin Active Keytruda Active Hydrocortisone 2.5 % 1 application Externally to affected areas of itching irritated skin on foot/feet Twice a day for 30 days Active Lenvima (10 MG Daily Dose) Active hydroCHLOROthiazide 25 MG TAKE ONE TABLE T BY MOUTH EVERY MORNING Oral for 90 Days Not-Taking Ammonium Lactate 12 % 1 application Externally to affected areas of dry skin to feet except for between the toes Twice a day for 30 days Active Prochlorperazine Maleate 10 MG Oral for 7 Days prn Active Levothyroxine Sodium 100 MCG as directed Oral Once a day for 90 days Active amLODIPine Besylate 10 MG TAKE ONE TABLE T BY MOUTH EVERY NIGHT AT BEDTIME Oral for 30 days Active Social History Tobacco Use: Social History Observation Description Date Details (start date - stop date) Never Smoker NA - NA Tobacco use other than smoking: Question Answer Notes Are you an other tobacco user? No Tobacco Control (Standard) Question Answer Notes Tobacco use: Nonsmoker Additional Findings: Tobacco non-user Current no nsmoker Problems Problem Type SNOMED Code ICD Code Onset Dates Problem Status W/U Status Risk Notes Problem Plantar wart (53080834) Plantar wart (B07.0) Active confirmed Vital Signs Blood pressure diastolic 76 mm Hg 09/09/2024 Height 5ft1in in 09/09/2024 Blood pressure systolic 125 mm Hg 09/09/2024 Weight 160 lbs 09/09/2024 BMI 30.23 kg/m2 09/09/2024 Procedures Procedure Date Ordered Date Performed Result Body Sit e 36729-Fvsq Destruction, 06-2202/04/2024 N/A 25492-Eeao Destruction, 06-2203/25/2024 N/A 49346-Guru Destruction, 06-2207/01/2024 N/A 37358-Fbiw Destruction, 06-2209/09/2024 N/A Encounters Encounter Location Date [facility] [address] 02/04/2024 Nica Black Pain in left foot M79.672 ; Pain in left ankle and joints of left foot M25.572 ; Bursitis of intermetatarsal bursa of left foot M77.52 ; Metatarsalgia, left foot M77.42 and Plantar wart B07.[address] [facility] [address] 03/25/2024 Nica Black Pain in left foot M79.672 ; Metatarsalgia, left foot M77.42 ; Pain in left ankle and joints of left foot M25.572 ; Bursitis of intermetatarsal bursa of left foot M77.52 and Plantar wart B07.0 [facility] [address] 04/29/2024 Nica Black Pain in left foot M79.672 ; Metatarsalgia, left foot M77.42 ; Pain in left ankle and joints of left foot M25.572 ; Bursitis of intermetatarsal bursa of left foot M77.52 and Plantar wart B07.[address] [address] 07/01/2024 Nica Black Right foot pain M79. 671 ; Plantar wart B07.0 ; Left foot pain M79.672 and Xerosis of skin L85.[address] [address] 09/09/2024 Nica Black Left foot pain M79.6 72 ; Plantar wart B07.0 and Nummular eczematous dermatitis L30.[address] [address] 12/30/2023 Nicadonte German [address] [address] 03/18/2024 [facility] Maxi [address] [address] 07/01/2024 Nica Black Assessments Encounter Date Diagnosis [...] 07/01/2024 Right foot pain (ICD-10 - M79.671) 09/09/2024 Left foot pain (ICD-10 - M79.672) 09/09/2024 Nummular eczematous dermatitis (ICD-10 - L30.0) 07/01/2024 Plantar wart (ICD-10 - B07.0) 09/09/2024 Plantar wart (ICD-10 - B07.0) 04/29/2024 Pain in left ankle and joints [...] of left foot (ICD-10 - M77.52) 07/01/2024 Left foot pain (ICD-10 - M79.672) 07/01/2024 Xerosis of skin (ICD-10 - L85.3) 04/29/2024 Plantar wart (ICD-10 - B07.0) 02/04/2024 Plantar wart (ICD-10 - B07.0) 03/25/2024 Plantar wart (ICD-10 - B07.0) Plan Of Treatment Pending Test Test Name Order Date 59185-Zhpk Destruction, 1-14 02/04/2024 61367-Chkq Destruction, 1-14 03/25/2024 12140-Unci Destruction, 1-14 07/01/2024 42023-Lfik Destruction, 1-14 09/09/2024 Insurance Providers Payer Name Payer Address Payer Phone Subscriber Number Group Number Insured Name Patient Relationship to Insured Coverage Start Date Coverage End Date Medicare National Govt Sv[employer] Inc [address] [facility] [place] [address] [id number] Teodora Hartmann Self - patient is the insured [employer] [facility] [address] [place] [address] [phone] [id number] 2 Teodora Hartmann Self - patient is the insured Medical (General) History Medical History History ICD Code Arthritis Back,Hip,and Knee pain Cancer Hypertension Numbness thyroid Measles Joint implants/screws Surgical History Surgery Date(Month/Year) knee surgery cancer eye surgery hysterectomy, total biopsy breast Hospitalization History Reason Date(Month/Year) fell, 2 fractures in right leg
--- OUTSIDE RECORDS SUMMARY | 2024-09-10 08:09 | XMS_ITS ---
Author Organization [facility] Address [address] [place] [address] Support Name Relationship Address Phone Meagan Scruggs Emergency Contact [address] [place], [place] [id number] Teodora Hartmann Guarantor Unknown [phone] Care Team Providers Care Container Washer Name Role Phone Finesse MARQUEZ, hSantell Trinidad Primary Care Provider Un available Black, Nica Unavailable [phone] Allergies No Known Allergies REASON FOR VISIT [...] Ordered Date Performed Result Body Sit e 33741-Oske Destruction, 1-14 07/01/2024 N/A Encounters Encounter Location Date Provider Diagnosis [facility] [place] [address] 07/01/2024 Nica Black Right foot pain M79.671 ; Plantar wart [...] days Pending Test Test Name Order Date 29567-Topp Destruction, 1-14 07/01/2024 Procedure Notes * Category Sub-Category Detail Notes Wart Treatment Procedure Verruca, as desc ribed in exam, were debrided to pin- point bleeding margins with sterile 15 surgical blade, silver nitrate chemocautery applied, recomm. immune-boosting meds such as zinc, recomm. follow up with topical chemosurgical agents, recomm. Wartstick 40 percent Salicylic acid application under occlusion as directed, - 74108 Progress Notes * Jono HARTMANNineDOB: [birth year] (68 yo F)Acc No.[id number]:07/01/2024 Progress Note Patient:Teodora DOWNS Provider:?Nica German DPM :1955???Age:68 Y???Sex:Female D ate:07/01/2024 Address: [address] [place], [id number] Pcp:Steph Jackson Subjective: * Chief Complaints: * [...] yes, walking. ?Marital status: . 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 * Medications:?TakingLenvima ( 10 MG Daily Dose) [...] acid application under occlusion as directed, - 50694.? * Procedure Codes:?05327 Wart Destruction, 1-14, Modifiers: XS * Preventive [...] German DPM Date:?2024 Generated for Audrey singh/Emily/Ravi on:?09/10/2024 08:08 AM EDT History and Physical Notes * HPI (History [...] (B): 2/4 , B/L PT PULSES (B): 24, B/L
--- OUTSIDE RECORDS SUMMARY | 2024-09-10 08:09 | XMS_ITS ---
Author Organization [facility] Address [address] [place] [address] Support Name Relationship Address Phone Meagan Scruggs Emergency Contact [address] [place], [place] [phone] Teodora Hartmann Guarantor Unknown [phone] Care Team Providers Care Bliss Press Operator Name Role Phone Finesse MARQUEZ, Shantell Trinidad Primary Care Provider Un available Black, Nica Unavailable [phone] Allergies No Known Allergies REASON FOR VISIT Wart(s), Skin problem(s) Medications Medication SIG (Take, Route, Frequency, Duration) Notes Start Date End Date Status Multivitamin Active Keytruda Active Lenvima (10 MG Daily Dose) Active [...] 10 MG Oral for 90 Days Active Hydrocortisone 2.5 % 1 application Externally [...] no nsmoker Vital Signs Height 5ft1in in 09/09/2024 Weight 160 lbs 09/09/2024 BMI 30.23 kg/m2 09/09/2024 Blood pressure systolic 125 mm Hg 09/10/19 25 Blood pressure diastolic 76 mm Hg 025 Procedures Procedure Date Ordered Date Performed Result Body Sit e 51463-Ptbg Destruction, -09/09/2024 N/A Encounters Encounter Location Date Provider Diagnosis [facility] [address] [place] [address] 09/09/2024 Nica Black Left foot pain M79.672 ; Plantar wart B07.0 and Nummular eczematous dermatitis L30.0 Assessments Encounter Date Diagnosis (ICD Code) Assessment Notes Treatment Notes Treatment Clinical Notes Section Notes 09/09/2024 Left foot pain (ICD-10 - M79.672) 09/09/2024 Plantar wart (ICD-10 - B07.0) 09/09/2024 Nummular eczematous dermatitis (ICD-10 - L30.0) Plan Of Treatment Medication Medication Name Sig Start Date Stop Date Notes Hydrocortisone 2.5 % 1 application Exter dominic to affected areas of itching irritated skin on foot/feet Twice a day for 30 days Pending Test Test Name Order Date 43035-Qsps Destruction, -09/09/2024 Next Appt Details Follow Up: prn, Reason: Procedure Notes * Category Sub-Category Detail Notes Wart Treatment Procedure Verruca, as desc ribed in exam, were debrided to pin- point bleeding margins with sterile 15 surgical blade, silver nitrate chemocautery applied, recomm. immune-boosting meds such as zinc, recomm. follow up with topical chemosurgical agents, recomm. CONT, Wartstick 40 percent Salicylic acid application under occlusion as directed, - 13690 Progress Notes * Amirah HARTMANNOB: [birth year] (68 yo F)Acc No.[id number]:09/09/2024 Progress Note Patient:JEFFBRAYANJono KENNEYine Provider:?Nica German DPM :1955???Age:68 Y???Sex:Female D ate:09/09/2024 Address: [address] [id number] Pcp:Steph Jackson Subjective: * Chief Complaints: * ???Wart(s)Skin problem(s) * HPI: ???Skin problems:?Nature:?itching.?Location:?, Top, Midfoot, Right.?Duration:?several days.?Course:?worse.?Treatments:?, Topical OTC moisturizing lotion/cream has not relieved condition.?Wart:?Pt States Last PCP Visit:?Date:?07/21/2024 * ROS:?General/Constitutional:?Nausea?denies.?Vomiting?denies.?Hunger Thirst?denies.?Loss appetite?denies.?Chills?denies.?Fatigue?denies.?Fever?denies.?Night Sweats?denies.?Unexplained weight loss?denies.?Unexplained [...] yes, walking. ?Marital status: . 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 * Medications:?TakingLenvima ( 10 MG Daily Dose) [...] ONE TABLET BY MOUTH EVERY DAY Oral Ammonium Lactate 12 % Cream 1 application Externally to affected areas of dry skin to feet except for between the toes Twice a day Taking Lenvima (10 MG Daily Dose) Taking [...] TABLET BY MOUTH EVERY DAY Oral Taking Ammonium Lactate 12 % Cream 1 application Externally to affected areas of dry skin to feet except for between the toes Twice a day Not-Taking/PRNhydroCHLOROthiazide 25 MG Tablet TAKE ONE TABLET BY MOUTH EVERY MORNING Oral Medication List reviewed and reconciled with the patientNot- Taking/PRN hydroCHLOROthiazide 25 MG Tablet TAKE ONE TABLET BY MOUTH EVERY MORNING Oral Medication List reviewed and reconciled with the patient * Allergies:?N.K.D.A.yes[Aller gies Verified] Objective: * Vitals:?Ht: 5ft1in, Wt:160, BMI:30.23, Shoe size: 9, BP:125/76mm Hg, Ht-cm: 154.94 cm, Wt-k.58 kg. * Examination: ???General Examination: ?GENERAL APPEARANCE:?Reveals a pleasant, alert, well nourished, well- developed, well hydrated individual, who demonstrates proper attention to hygiene/body habitus, and is in no acute distress, Pt serves as own historian for office visit today.?ORIENTED:?person, place, and time.?Dermatologic: ?SKIN FINDINGS:??Skin shows sign(s) of, eczema patch(es), pruritus, excoriations, erythema, inflammation, dorsal right midfoot.?VERRUCA:?Reveals a Single , multi-loculated , mosaic-patterned, round, raised, flat-topped, petechial bleeding papule(s), with cauliflower appearance and interruption of skin lines, pain to lateral compression, and size estimated at 3 mm diameter, plantar Forefoot, LEFT.?Neurological: ?SENSORY:?Neurological exam reveals intact sensorium, pain sensation normal, vibration sensation intact, pinprick sensation is normal in the lower extremities, Pt denies, anesthesia, burning, paresthesia, tingling, B/L.?Vascular: ?DP PULSES (B):?2/4 , B/L.?PT PULSES (B):?2/4, B/L.? Assessment: * Assessment: 1.?Left foot pain - M79.672? ??2.?Nummular eczematous dermatitis - L30.0???Specify :Acute problem, Uncomplicated (3),Rx drug management (4)???3.?Plantar wart - B07.0 (Primary)??? Plan: * Treatment: 2.?Nummular eczematous derma titis? Start Hydrocortisone Cream, 2.5 %, 1 application, Externally to affected areas of itching irritated skin on foot/feet, Twice a day, 30 days, 30, Refills 2.?? * Procedures:?Wart Treatment:?Procedure?Verruca, as described in exam, were debrided to pin-point bleeding margins with sterile 15 surgical blade, silver nitrate chemocautery applied, recomm. immune-boosting meds such as zinc, recomm. follow up with topical chemosurgical agents, recomm. CONT, Wartstick 40 percent Salicylic acid application under occlusion as directed, - 39630.? * Procedure Codes:?76558 Wart Destruction, 1-14, Modifiers: XS * Preventive [...] have encouraged the patient to call the office.?Dermatitis:?The patient was counseled on the diagnosis, potential [...] The patient has decided to apply Rx Hydrocortisone skin creams to their feet save the interspaces. Such was sent to their pharmacy at the time of visit.? ??Screening/Special Tests:?Fall Risk?Screening:?No falls in the past year ?FALLS: Screening for Future Fall Risk?Have you had any falls with injury in the past year??No * Follow Up:?prn * Images: * Sign off status: Completed true * Provider:?Nica German DPM Date:?2024 Generated for Audrey singh/Emily/Niravitting on:?09/10/2024 08:08 AM EDT History and Physical Notes * HPI (History of Present Illness) Category Sub-Category Detail Notes Category Not es Wart Pt States Last PCP Visit: Date:: 07/21/2024 Skin problems Nature: itching Location: , Top, Midfoot, Righ t Duration: several days Course: worse Treatments: , Topical OTC moistu rizing lotion/cream has not relieved condition Examination Category Sub-Category Detail Notes Category Not es Neurological SENSORY: Neurological exa m reveals intact sensorium, pain sensation normal, vibration sensation intact, pinprick sensation is normal in the lower extremities, Pt denies, anesthesia, burning, paresthesia, tingling, B/L Dermatologic SKIN FINDINGS: Skin shows sign( s) of, eczema patch(es), pruritus, excoriations, erythema, inflammation, dorsal right midfoot VERRUCA: Reveals a Single , m ulti-loculated , mosaic-patterned, round, raised, flat-topped, petechial bleeding papule(s), with cauliflower appearance and interruption of skin lines, pain to lateral compression, and size estimated at 3 mm diameter, plantar Forefoot, LEFT General Examination GENERAL APPEARANCE: Reveals a pleasant, alert, well nourished, well-developed, well hydrated individual, who demonstrates proper attention to hygiene/body habitus, and is in no acute distress, Pt serves as own historian for office visit today ORIENTED: person, place, and t musa Vascular DP PULSES (B): 2/4 , B/L PT PULSES (B): 2/4, B/L
--- OUTSIDE RECORDS SUMMARY | 2024-09-10 08:09 | XMS_ITS ---
Author Organization [facility] Address [address] [place] [address] Support Name Relationship Address Phone Meagan Scruggs Emergency Contact [address] [place], [place] [phone] Teodora Hartmann Guarantor Unknown Care Team Providers Care Machinery Erector Name Role Phone Finesse MARQUEZ, Shantell Trinidad Primary Care Provider Un available Black, Nica Unavailable [phone] REASON FOR VISIT Wart Stick Encounters Encounter Location Date Provider Diagnosis [facility] [address] [place] [address] 07/01/2024 Nica Black Plan Of Treatment No Information Progress Notes * Jono HARTMANNineDOB: [birth year] (68 yo F)Acc No.[id number]:07/01/2024 Patient:?Jono HARTMANNine :1955???Age:68 Y???Sex:Female [address] [place], [place] [address] [place], [address] * true * Date:? Generated for Printi samantha/Emily/eTransmitting on:?09/10/2024 08:08 AM EDT
--- NOTE | 2024-09-10 08:10 | MHC.PC.OV ---
Intake Visit Reasons: 4 months f/up Allergies No Known Allergies [No Known Allergies*] Allergy (Verified 09/10/24 08:27) Medication List - Last Reconciled 09/10/24 by Shantell Kilpatrick MD amlodipine 10 mg PO DAILY atorvastatin 10 mg PO DAILY biotin (Hair, Skin and Nails (biotin)) mcg PO calcium carbonate 600 mg PO BID cholecalciferol (vitamin D3) 50 mcg PO DAILY cyanocobalamin (vitamin B-12) 100 mcg PO DAILY diphenoxylate-atropine 2.5-0.025 mg tabs PO fluticasone propionate 50 mcg/actuation (Allergy Relief (fluticasone)) 1 spray intranasal DAILY PRN hydrocortisone 2.5% appl topical lenvatinib 8 mg PO DAILY levothyroxine 137 mcg PO DAILY lisinopril 10 mg PO DAILY loperamide 2 mg PO DAILY PRN magnesium oxide 400 mg PO BID multivitamin with folic acid 400 mcg (Daily-Neeraj (with folic acid)) 1 tab PO DAILY pembrolizumab (Keytruda) 200 mg IV Q3W potassium chloride ER mEq PO Tobacco use date assessed: 09/10/24 Fall risk assessment: 1 Fall in past year Last assessed Fall Risk: 09/10/24 Dental Screening Dental Screen Date: 07/12/24 HPI 4 months f/up HPI Details e68 ed-old lady with past medical history significant for osteopenia of multiple sites, hypothyroidism, hyperlipidemia, seasonal allergies 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 Lord, presents today for follow-up. She has been feeling well, still on lenvatinib tablets andKeytruda infusion tolerating it but still gets episodes of loose stools and muscle cramps medication. Blood pressure has been stable controlled on present treatment, with blood pressure this morning at 113/76 with a pulse rate of 70 per minute He had recent fasting labs done ordered by her OBGYN last 09/02/2024 which showed normal complete blood count, normal electrolytes fasting glucose, renal function but low serum calcium at 8.5 g per dL., her magnesium level total protein liver enzymes total cholesterol, CA 125 all came back negative except for low magnesium level at 1.1 g/dl. . Patient however states that she has been feeling well, with occasional sharp twinges in her lower abdomen area felt . Her thyroid stimulating hormone however came back elevated at 29.3 with total free T4 at 8.1. . Has been told by her surgeon that this could all be in relation to her Keytruda and lenvatinib capsule. 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 She already has been referred to see [facility] endocrine clinic on 09/13/2024 for further evaluation of elevated TSH level. [facility] Medical History (Updated 09/10/24 @ 17:10 by Shantell Kilpatrick MD) Hypomagnesemia Hypokalemia Fracture of pelvis History of adenomatous polyp of colon Sacral fracture Osteopenia of multiple sites Sacral insufficiency fracture Lumbar radiculopathy, acute History of radiation therapy History of uterine cancer Abnormal mammogram of left breast Breast density Carcinoma of left fallopian tube Adenocarcinoma of endometrium, stage 1 Seasonal allergies Postmenopausal bleeding Menopause Osteopenia of lumbar spine Hyperlipidemia Osteoarthritis, knee Hypothyroidism Hypertension Surgical History H/O colonoscopy Status post total hysterectomy and bilateral salpingo-oophorectomy History of total knee arthroplasty H/O arthroscopy of right knee H/O arthroscopy of left knee H/O arthroscopic knee surgery H/O blepharoplasty Family History Father Prostate cancer Heart disease Mother Diabetes mellitus Mother Skin cancer Social History Housing: House Alcohol intake: never Comment: cramping Patient Tobacco Use Status: Never used Tobacco e-Cigarette/Vaping Use: Never Used Advance Directives Date on File: 03/04/23 Current occupational status: retired Cognitive needs: No Hearing needs: No Vision needs: No Questionnaire PHQ-9 Over the last 2 weeks, how often have you been bothered by any of the following problems? 1. Little interest or pleasure in doing things: not at all 2. Feeling down, depressed, or hopeless: not at all 3. Trouble falling or staying asleep, or sleeping too much: not at all 4. Feeling tired or having little energy: not at all 5. Poor appetite or overeating: not at all 6. Feeling bad about yourself - or that you are a failure or have let yourself or your family down: not at all 7. Trouble concentrating on things, such as reading the newspaper or watching television: not at all 8. Moving or speaking so slowly that other people could have noticed. Or the opposite - being so fidgety or restless that you have been moving around a lot more than usual: not at all 9. Thoughts that you would be better off or of hurting yourself in some way: not at all Total score: 0 Depression Screening Interpretation: Negative Depression Screening Done: Yes 35337 - PHQ-9 Billing: Yes Source: Developed by Drs. Jay Mann, Stefanie Hawkins, Delonte Nichols and colleagues, with an educational porfirio from [employer]. Thrive Questionnaire Date Thrive assessed: 07/12/24 AUDIT C Alcohol Use Questionnaire (AUDIT-C) 1. How often do you have a drink containing alcohol?: Never Total Score: 0 HUSSAIN-7 AMB Questionnaire HUSSAIN-7 Date HUSSANI - 7 assessed: 07/12/24 Source: Developed by Drs. Jay Mann, Stefanie Hawkins, Delonte Nichols and colleagues, with an educational porfirio from [employer]. Review of Systems Const All systems reviewed & are unremarkable except as noted in HPI and below Denies fatigue, Denies fever(s), Denies headache(s) and Denies weakness Eyes Denies change in vision ENT Denies dizziness, Denies headache(s), Denies mouth lesions and Denies sore throat Card Denies chest pain, Denies lightheadedness, Denies palpitations and Denies dyspnea Resp Denies chest congestion, Denies cough, Denies dyspnea and Denies wheezing GI Denies abdominal pain, Denies change in bowel habits and Denies heartburn Denies urinary frequency, Denies dysuria and Denies urinary urgency Musc Reports no additional complaints Skin/Breast Denies lesions and Denies rash Neuro Denies dizziness, Denies headache(s) and Denies weakness Psych Reports no additional complaints Endo Denies fatigue, Denies polydipsia, Denies polyuria and Denies palpitations Jefferson/Lymph Denies easy bruising Aller/Immun Denies seasonal rhinorrhea and Denies wheezing Physical exam (Primary Care) Tobacco/Smoking Status: Tobacco use Status Tobacco use date assessed 09/10/24 09/10/24 08:12 Patient Tobacco Use Status Never used Tobacco 09/10/24 08:12 e-Cigarette/Vaping Use Never Used 09/10/24 08:12 PHQ-9: PHQ-9 Score PHQ-9: Total score 0 09/10/24 08:30 Depression Screening Interpretation: Negative Thrive Assessment: Date of Thrive Assessment Date Thrive assessed 07/12/24 09/10/24 08:12 Telehealth Telehealth Telehealth Platform: [employer] Location of provider rendering services: practice address Location of patient: address on file Patient Identification confirmed using: Name, : Yes Telehealth method: video Patient verbally consented to treatment: Yes Patient verbally consented to billing insurance company: Yes Patient informed of any privacy concerns related to visit: Yes Minutes spent on Phone/Video with Pt.: 15 Coding Level of Care Code Tele Est Pt Level 4 (64115) Complex EM visit Add On G2211 Diagnoses Pure hypercholesterolemia E78.00 Hyperlipidemia type: pure hypercholesterolemia Acquired hypothyroidism E03.9 Hypothyroidism type: acquired Essential hypertension I10 Hypertension type: essential hypertension History of uterine cancer Z85.42 Seasonal allergies J30.2 Osteopenia of lumbar spine M85.88 Additional Codes PHQ-9 - 91800 - PHQ-9 Billing: Yes ([id number]) Assessment & Plan Assessment & Plan (1) Hyperlipidemia: Code(s): E78.5 - Hyperlipidemia, unspecified Category: Medical Qualifiers: Hyperlipidemia type: pure hypercholesterolemia Qualified Code(s): E78.00 - Pure hypercholesterolemia, unspecified Plan: Continue atorvastatin 10 mg daily (2) Hypothyroidism: Code(s): E03.9 - Hypothyroidism, unspecified Category: Medical Qualifiers: Hypothyroidism type: acquired Qualified Code(s): E03.9 - Hypothyroidism, unspecified Plan: Fasting lipids are within normal limits. Continued on levothyroxine 137 mcg daily (3) Hypertension: Code(s): I10 - Essential (primary) hypertension Category: Medical Qualifiers: Hypertension type: essential hypertension Qualified Code(s): I10 - Essential (primary) hypertension Plan: Blood pressure at goal of less than 130/80. Continue with current medication. Reinforced importance of following a low sodium diet, getting regular exercise, and lowering stress levels. (4) History of uterine cancer: Code(s): Z85.42 - Personal history of malignant neoplasm of other parts of uterus Category: Medical Plan: Currently receiving lenvatinib daily and Keytruda every 2 weeks and fusion, currently followed by Dr. Lord in [facility] (5) Seasonal allergies: Code(s): J30.2 - Other seasonal allergic rhinitis Category: Medical Plan: Currently on fluticasone propionate nasal spray, use as directed (6) Osteopenia of lumbar spine: Code(s): M85.88 - Other specified disorders of bone density and structure, other site Category: Medical Plan: Latest bone density scan results reviewed with patient which showed presence of osteopenia in numerous sites. Continue taking cholecalciferol 50 mcg daily in addition to calcium carbonate 600 mg 1 tablet twice a day. Reinforced importance of following a healthy diet and getting regular exercise to help prevent further bone loss and build bone.
== END 2024-09-10 09:42 | disposition home or self-care (01) ==
LOC: HO.HMCC 08:00
PROVIDERS: PCP Internal Medicine; Visit Provider Internal Medicine
DX: E78.00 Pure hypercholesterolemia, unspecified (principal); E03.9 Hypothyroidism, unspecified; I10 Essential (primary) hypertension; Z85.42 Personal history of malignant neoplasm of other parts of uterus; J30.2 Other seasonal allergic rhinitis; M85.88 Other specified disorders of bone density and structure, other site

== ENCOUNTER → 2024-09-10 08:00 | Outpatient (BNVA) | payer MEDICARE, SELFPAY | PROVIDERS: PCP Internal Medicine; Visit Provider Internal Medicine | DX: I10 Essential (primary) hypertension (principal); E03.9 Hypothyroidism, unspecified; E78.00 Pure hypercholesterolemia, unspecified; J30.2 Other seasonal allergic rhinitis; M85.88 Other specified disorders of bone density and structure, other site; Z85.42 Personal history of malignant neoplasm of other parts of uterus | CPT/HCPCS: 96127 ==

== ENCOUNTER 2025-04-11 08:58 | Outpatient (AMB) | payer MEDICARE, SELFPAY ==
--- OUTSIDE RECORDS SUMMARY | 2024-04-14 03:15 | XMS_ITS ---
Author Organization [facility] Address [address] [place] [address] Support Name Relationship Address Phone Meagan Scruggs Emergency Contact [address] [place], [place] [phone] ShahbazJonoTeodora Guarantor Unknown Care Team Providers Care Senior Catering Sales Manager Name Role Phone Finesse MARQUEZ, Shantell Trinidad Primary Care Provider Un available MaxiForrestNica Unavailable [phone] Encounters Encounter Location Date Provider Diagnosis [address] [address] 04/14/2024 Nica Maxi Plan Of Treatment Next Appt Details Provider Name:Nica German , 06/28/2025 09:15:00 AM, [address] [place] [address], [place], [address], Progress Notes * Jono GALLARDOineDOB: [birth year] (69 yo F)Acc No.[id number]:04/14/2024 Progress Note Patient: Teodora BLOOD Provider: David German DPM :1955 A ge:68 Y S ex:Female Date:04/14/2024 Address:[address] [place], [place] [address]donte [place] Pcp:Steph Jackson Subjective: * Chief Complaints: * * Medical History: Objective: * Vitals: Assessment: Plan: * Treatment: * Images: * The named appointment provid er may or may not be the originator of this progress note, and it is not deemed complete until electronically signed by the appointment provider. Sign off status: Pending * Provider: David German DPM Date: 06/14/2023 Generated for Audrey singh/Emily/Ravi on: 06/11/2024 09:42 AM EST
--- OUTSIDE RECORDS SUMMARY | 2025-04-11 09:42 | XMS_ITS | Clinical Summary ---
Author Organization Formerly [facility] Address [address] [place] [id number] Phone Care Team Providers Care Steam And Power Superintendent Name Role Phone Shantell Kilpatrick MD Primary Care Provider Enedina Lord MD Unavailable [phone] Allergies Active Allergy Reactions Criticality Noted Date Comments Hay Fever And Allergy Relief 024 Medications lisinopril (PRINIVIL,ZESTR IL) 5 MG tablet Take 5 mg by mouth every morning. 4 Active hydroCHLOROthia zide (HYDRODIURIL) 25 MG tablet Take 25 mg by mouth every morning. 4 Active atorvastatin (LIPITOR) 10 MG tablet Take 10 mg by mouth every morning. 4 Active levothyroxine (SYNTHROID, LEVOTHROID) 100 MCG tablet TAKE ONE TABLET BY MOUTH EVERY OTHER DAY; ALTERNATING WITH 88 MCG STENGTH 4 Active levothyroxine (SYNTHROID, LEVOTHROID) 88 MCG tablet TAKE ONE TABLET BY MOUTH EVERY OTHER DAY; ALTERNATING WITH 100MCG. 4 Active DAILY-ANTWON, WITH FOLIC ACID, 400 mcg tablet Take 1 tablet by mouth every morning. 4 Active cyanocobalamin, vitamin B-12, 100 MCG tablet Take 1 tablet by mouth every morning. 4 Active cholecalciferol (VITAMIN D3) 2,000 unit capsule Take 1 capsule by mouth every morning. 02/12/202 4 Active senna (SENOKOT) 8.6 mg tablet Take 1 tablet by mouth as needed for constipation. Active Social History Tobacco Use Types Packs/Day Years Used Date Smoking Tobacco: Never Smokeless Tobacco: Never Tobacco Cessation:Counseling Given: Not Answered Education Answer Date Recorded Are you interested in more education? Not on leela e 09/09/2023 Are you concerned about learning? Not on file 09/09/2023 No 09/09/2023 No 09/09/2023 Digital Access Answer Date Recorded No 09/09/2023 No 09/09/2023 Reliable internet access at home? Not on file 09/09/2023 Device with a working camera? Not on file Comments Unknown Sex and Gender Information Value Date Recorded Sex Assigned at Female 09/09/2023 2:21 PM EDT Legal Sex Female 2:20 PM EDT Gender Identity Female 09/09/2023 2:21 PM EDT Sexual Orientation Straight 09/09/2023 2: 21 PM EDT Last Filed Vital Signs Vital Sign Reading Time Taken Comments Blood Pressure 181/81 09/25/2023 9:20 AM EDT Pulse 94 09/25/2023 9:20 AM EDT Temperature 36.8 C (98.2 F) 09/25/2023 9:20 AM EDT Respiratory Rate 16 09/25/2023 9:20 AM EDT Oxygen Saturation 96% 09/25/2023 9:20 AM EDT Inhaled Oxygen Concentration - - Weight 76.9 kg (169 lb 8.5 oz) 09/25/2023 9:20 A M EDT Height 156 cm (5' 1.42 ) 09/25/2023 9:20 AM EDT Body Mass Index 31.6 09/25/2023 9:20 AM EDT Plan of Treatment Health Maintenance Due Date Last Done Comments CREATININE LEVEL 1953 LIPID PANEL 1953 POTASSIUM LEVEL 1953 TSH LEVEL 1953 DEPRESSION SCREENING 1965 HEPATITIS C SCREENING 10/23/1971 MAMMOGRAM 1993 COLOGUARD 1998 COLONOSCOPY 1998 COLORECTAL CANCER SCREENING 1998 FIT TEST 1998 FOBT 1998 SIGMOIDOSCOPY 1998 VIRTUAL COLONOSCOPY 1998 OSTEOPOROSIS SCREENING INITIAL (ONE-TIME) 2018 PNEUMOCOCCAL VACCINES (50+ years) (2 of 2 - PPSV23) 01/30/2020 01/29/2019 INFLUENZA VACCINE (#1) 2025 , 04/07/2022, 03/13/2021, Additional history exists COVID-19 VACCINE ( - 2024- season) 2025 03/05/2023, 04/07/2022, 05/05/2021, Additional history exists Adult Td,Tdap Booster 12/16/2026 12/16/2016 RSV VACCINE (1 - 1-dose 75+ series) 2028 ZOSTER VACCINES Completed 09/16/2018, 06/24/2018 SMOKING STATUS SCREENING (Once After 26 Yrs) Completed 09/10/2023 HEPATITIS A VACCINES Aged Out No long er eligible based on patient's age to complete this topic HIB VACCINES Aged Out No longer eligi ble based on patient's age to complete this topic MENINGOCOCCAL VACCINES (ACWY) Aged Out No longer eligible based on patient's age to complete this topic MENINGOCOCCAL VACCINES (B) Aged Out N o longer eligible based on patient's age to complete this topic Medical Devices Not on file Insurance MEDICARE PART A & B Member Subscriber Plan / Payer (Ef fective 2018-Present) Name:Teodora Hartmann Member ID:[id number] Relation to Subscriber:Self Name:Teodora Hartmann Subscriber ID:[id number] Payer ID:[id number] Group ID:Not on file Type:Medicare Address: [employer] [facility] [address] [facility] [place] [address] [employer] CROSS MEDEX SUPPLEMENT MEDICARE PART A & B [employer] MEDEX SUPPLEMENT MEDICARE PART A & B [employer] MEDEX SUPPLEMENT MEDICARE PART A & B [employer] MEDEX SUPPLEMENT MEDICARE PART A & B [employer] MEDEX SUPPLEMENT MEDICARE PART A & B [employer] MEDEX SUPPLEMENT Care Teams Steam And Power Superintendent Relationship Specialty Start Date End Date Shantell Kilpatrick MD [address] [place] [address] PCP - General Internal Medicine 09/09/23 Enedina Lord MD [address] [place] [address] 4B_OB/SUSTAINABLE [place] [address] Obstetrics and Gynecology 09/09/23 Additional Source Comments The information contained in this document represents components of the legal health record. It is not the complete legal health record.Formerly [facility]
--- OUTSIDE RECORDS SUMMARY | 2025-04-11 09:42 | XMS_ITS | Clinical Summary ---
Author Organization [facility], Address [address] [place] [address] Phone Care Team Providers Care Carpenter Mold Name Role Phone Eber Kilpatrick MD Primary Care Provider [phone] Allergies No known active allergies Medications ascorbic [...] 98 09/26/2023 8:58 AM EDT Temperature 36.3 C (97.4 F) 09/26/2023 8:58 AM EDT Respiratory Rate 16 09/26/2023 8:58 AM EDT Oxygen Saturation 98% 09/26/2023 8:58 AM EDT Inhaled Oxygen Concentration - - Weight 77.1 kg (170 lb) 09/26/2023 8:58 AM EDT Height 157.5 cm (5' 2 ) 09/26/2023 8:58 AM EDT Body Mass Index 31.09 09/26/2023 8:58 AM EDT Plan of Treatment Health Maintenance Due Date Last Done Comments Breast Cancer Screening 1955 Pneumococcal Vaccine: 50+ Ye ars (1 of 2 - PCV) 1972 Colorectal Cancer Screening: Annual FOBT 2002 Colorectal Cancer Screening: Colonoscopy 2002 Colorectal Cancer Screening: Sigmoidoscopy 2002 Influenza Vaccine (#1) 2025 Hepatitis B Vaccine Aged Out No longe r eligible based on patient's age to complete this topic Insurance Medicare [facility] Care Teams Carpenter Mold Relationship Specialty Start Date End Date Eber Kilpatrick MD [address] [place] [id number] PCP - General Internal Medicine 09/10/23
--- OUTSIDE RECORDS SUMMARY | 2025-04-11 09:43 | XMS_ITS | Patient Health Record ---
Author Organization [facility] Address [address] [place] [address] Support Name Relationship Address Phone Meagan Scruggs Emergency Contact [address] [facility] [place] [address] Teodora Hartmann Guarantor Unknown Care Team Providers Care Duplicating Machine Operator Name Role Phone Finesse MARQUEZ, Shantell Trinidad Primary Care Provider Un available Black, Nica Unavailable [phone] Allergies No Known Allergies Reason For Referral No Information Medications Medication SIG (Take, Route, Frequency, Duration) Notes Start Date End Date Status Lisinopril 10 MG Oral; Duration: 90 Days Active Lenvima (10 MG Daily Dose) Active Hydrocortisone 2.5 % 1 application Externally to affected areas of itching irritated skin on foot/feet Twice a day; Duration: 30 days Active Keytruda Active hydroCHLOROthiazide 25 MG TAKE ONE TABLE T BY MOUTH EVERY MORNING Oral; Duration: 90 Days Not-Taking Multivitamin Active amLODIPine Besylate 10 MG TAKE ONE TABLE T BY MOUTH EVERY NIGHT AT BEDTIME Oral; Duration: 30 days Active Atorvastatin Calcium 10 MG TAKE ONE TABL ET BY MOUTH EVERY DAY Oral; Duration: 90 Days Active D3 High Potency 50 MCG (2000 UT) TAKE ONE CAPSULE BY MOUTH EVERY DAY Oral; Duration: 90 Days Active Vitamin B-12 100 MCG TAKE ONE TABLET BY MOUTH EVERY DAY Oral; Duration: 90 Days Active Synthroid 150 MCG 1 tablet in the morning on an empty stomach Orally Once a day Active Ammonium Lactate 12 % 1 application Externally to affected areas of dry skin to feet except for between the toes Twice a day; Duration: 30 days Active Levothyroxine Sodium 100 MCG as directed Oral Once a day; Duration: 90 days Not-Taking Prochlorperazine Maleate 10 MG Oral; Duration: 7 Days prn Active Immunizations Vaccine Route Administration Date Status Comme nts Influenza Unknown 03/24/2024 Administered Social History Tobacco Use: Social History Observation [...] W/U Status Risk Notes Problem Plantar wart (38850555) Plantar wart (B07.0) Active confirmed Vital Signs Blood pressure diastolic 76 mm Hg 02/23/2025 Height 5ft 1in in 02/23/2025 Blood pressure systolic 125 mm Hg 02/23/2025 Weight 160 lbs 02/23/2025 BMI 30.23 kg/m2 02/23/2025 Procedures Procedure Date Ordered Date Performed Result Body Sit e 01293-Vbzk Destruction, -07/01/2024 N/A 59147-Wszg Destruction, 06-2209/09/2024 N/A 61653-Lpur Destruction, 06-2202/23/2025 N/A Encounters Encounter Location Date Provider Diagnosis [facility] [address] [address] 04/29/2024 Nica Black Pain in left foot M79.672 ; Metatarsalgia, left foot M77.42 ; Pain in left ankle and joints of left foot M25.572 ; Bursitis of intermetatarsal bursa of left foot M77.52 and Plantar wart B07.[address] [facility] [address] 07/01/2024 Nica Black Right foot pain M79. 671 ; Plantar wart B07.0 ; Left foot pain M79.672 and Xerosis of skin L85.[address] [address] 09/09/2024 Nica Black Left foot pain M79.6 72 ; Plantar wart B07.0 and Nummular eczematous dermatitis L30.[address] [address] 02/23/2025 Nica Black Left foot pain M79.6 72 ; Plantar wart B07.0 and Nummular eczematous dermatitis L30.[address] [address] 07/01/2024 Nica Black Assessments Encounter Date Diagnosis (ICD Code) Assessment Notes Treatment Notes Treatment Clinical Notes Section Notes 04/29/2024 Metatarsalgia, left foot (ICD-10 - M77.42) 04/29/2024 Pain in left foot (ICD-10 - M79.672) 07/01/2024 Right foot pain (ICD-10 - M79.671) 09/09/2024 Left foot pain (ICD-10 - M79.672) 02/23/2025 Left foot pain (ICD-10 - M79.672) 09/09/2024 Plantar wart (ICD-10 - B07.0) 09/09/2024 Nummular eczematous dermatitis (ICD-10 - L30.0) 02/23/2025 Plantar wart (ICD-10 - B07.0) 07/01/2024 Plantar wart (ICD-10 - B07.0) 04/29/2024 Pain in left ankle and joints of left foot (ICD-10 - M25.572) 04/29/2024 Bursitis of intermetatarsal bursa of left foot (ICD-10 - M77.52) 07/01/2024 Left foot pain (ICD-10 - M79.672) 02/23/2025 Nummular eczematous dermatitis (ICD-10 - L30.0) 07/01/2024 Xerosis of skin (ICD-10 - L85.3) 04/29/2024 Plantar wart (ICD-10 - B07.0) Plan Of Treatment Pending Test Test Name Order Date 90430-Zzlm Destruction, 06-2202/04/2024 77610-Cuge Destruction, 06-2203/25/2024 18347-Icbk Destruction, 06-2207/01/2024 95082-Sqhm Destruction, 06-2209/09/2024 04899-Lnwq Destruction, 06-2202/23/2025 Next Appt Details Provider Name:Nica German , 06/28/2025 09:15:00 AM, [address] [facility], [place], [address], Insurance Providers Payer Name Payer Address Payer Phone Subscriber Number Group Number Insured Name Patient Relationship to Insured Coverage Start Date Coverage End Date Medicare National Govt Sv[employer] [address] [place] [address] [id number] Teodora Hartmann Self - patient is the insured [employer] [address] [place] [address] [phone] [id number] Teodora Hartmann Self - patient is the insured Medical (General) History Medical History History ICD Code Arthritis Back,Hip,and Knee pain Cancer Hypertension Numbness thyroid Measles Joint implants/screws Surgical History Surgery Date(Month/Year) knee surgery cancer eye surgery hysterectomy, total biopsy breast Hospitalization History Reason Date(Month/Year) fell, 2 fractures in right leg
[2025-04-11 10:30] VITALS: BP 118/70; PULSE 73; RESP 16; TEMP 36.6; O2SAT 98; BMI 25.5
--- NOTE | 2025-04-11 10:30 | A.OFFVIS_ITS ---
Intake Vital Signs 04/11/25 10:30 Height 5 ft 1.5 in Weight 137 lb BMI 25.5 BP 118/70 Blood Pressure Location Rt brachial Position Sitting Respiration 16 Pulse 73 Pulse Source Pulse Oximeter Temp 97.8 F Temp Source Oral Pulse Oximetry (%) 98 Oxygen Delivery Method Room Air Intake Visit Reasons: SWV G0439 Intake Note: Pt is here today for her SWV Property Loss Insurance Claim Adjuster Required: No Allergies No Known Allergies (No Known Allergies*) Allergy (Verified 04/11/25 10:50) Medication List - Last Reconciled 04/11/25 by Shantell Kilpatrick MD amlodipine 10 mg PO DAILY atorvastatin 10 mg PO DAILY biotin (Hair, Skin and Nails (biotin)) mcg PO calcium carbonate 600 mg PO BID cholecalciferol (vitamin D3) 50 mcg PO DAILY cyanocobalamin (vitamin B-12) 100 mcg PO DAILY diphenoxylate-atropine 2.5-0.025 mg tabs PO fluticasone propionate 50 mcg/actuation (Allergy Relief (fluticasone)) 1 spray intranasal DAILY PRN hydrocortisone 2.5% appl topical lenvatinib 8 mg PO DAILY levothyroxine (Synthroid) 150 mcg PO DAILY lisinopril 10 mg PO DAILY loperamide 2 mg PO DAILY PRN magnesium oxide 400 mg PO BID multivitamin with folic acid 400 mcg (Daily-Neeraj (with folic acid)) 1 tab PO DAILY pembrolizumab (Keytruda) 200 mg IV Q3W potassium chloride ER mEq PO HPI SWV G0439 HPI Details SWV ? 69 year old with past medical history significant for endometrial cancer s/p chemotherapy and radiotherapy, osteopenia multiple sites, history of pelvic fracture, hyperlipidemia, osteoarthritis in knees, hypothyroidism and hypertension presents for her ? subsequent annual wellness visit. She is up-to-date with her screening mammogram on June 15, 2024 with normal findings. Colonoscopy done by Dr. Ramos in 2016 tubular adenoma polyp removed, waiting to get cleared by her oncologist to get a repeat colonoscopy screening. Last bone density was done in 2023 which showed presence of osteopenia in left femoral neck and left femur and lumbar spine. Had normal fasting lipid panel and fasting glucose checked 05/21/2024. Up-to-date with her flu vaccine, COVID booster, shingles, pneumonia vaccine and Tdap. .? Medical / Social History Reviewed? Past Medical History ?Yes . ? [place] of Care / Care Team list updated ?Yes . ? Surgical/Hospitalization History ?Yes . ? Current Medications (including OTC and supplements) ?Yes . ? Family History ?Yes . ? Tobacco Control form ?Yes . ? AUDIT-C (Alcohol use) form ?Yes . ? Illicit drug use in Social History ?Yes . ? Current diagnosis of depression? ?No ? Appropriate PHQ2/PHQ9 completed ?Yes . ? Data entered by ?Cyber Software Engineer and reviewed by provider ? Fall Risk ? Fall History? Have you had any falls with injury in the past year? ?No . ? Have you had two or more falls in the past year? ?No . ? Fall Risk Assessment: ?No falls in the past year . ? HRA filled out by the patient, reviewed by Provider and scanned. ?? SWV ? Balance? Romberg ?negative ? Tandem walk ?Yes . ? Walk and Turn ?Yes . ? Rise from sit to stand ?Yes . ?Vision? Corrective lens ?Yes ? Vision screen ? Up-to-date, goes to [facility] ?Hearing? Whisper test ?pass . ?Written Plan?Completed. See Patient Documents.? 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, stage 1 Seasonal allergies Postmenopausal bleeding Menopause Osteopenia of lumbar spine Hyperlipidemia Osteoarthritis, knee Hypothyroidism Hypertension Surgical History H/O colonoscopy Status post total hysterectomy and bilateral salpingo-oophorectomy History of total knee arthroplasty H/O arthroscopy of right knee H/O arthroscopy of left knee H/O arthroscopic knee surgery H/O blepharoplasty Family History Father Prostate cancer Heart disease Mother Diabetes mellitus Mother Skin cancer Social History Housing: House Alcohol intake: never Comment: cramping Patient Tobacco Use Status: Never used Tobacco e-Cigarette/Vaping Use: Never Used Advance Directives Date on File: 03/04/23 Current occupational status: retired Cognitive needs: No Hearing needs: No Vision needs: No Female Reproductive History Menstrual Menopause type: surgical Questionnaire Medicare Wellness Checkup [age] What gender do you identify with?: female During the past 4 weeks, how much have you been bothered by emotional problems such as feeling anxious, depressed, irritable, sad or downhearted, and blue?: not at all During the past 4 weeks, has your physical & emotional health limited your social activities with family, friends, neighbors, or groups?: not at all During the past 4 weeks, how much bodily pain have you generally had?: no pain During the past 4 weeks, was someone available to help you if you needed & wanted help?: yes, as much as I wanted During the past 4 weeks, what was the hardest physical activity you could do for at least 2 minutes?: heavy Can you get to places out of walking distance without help? (For eg., can you travel alone on buses, taxis or drive your car?): Yes Can you go shopping for groceries or clothes without someone's help?: Yes Can you prepare your own meals?: Yes Can you do your housework without help?: Yes Because of any health problems, do you need the help of another person with your personal care needs such as eating, bathing, dressing or getting around the house?: No Can you handle your own money without help?: Yes During the past 4 weeks, how would you rate your health in general?: very good During the past 4 weeks how have things been going for you?: pretty well Are you having difficulties driving your car?: no Do you always fasten your seat belt when you are in a car?: yes, usually During past 4 weeks, have you been bothered by the following: never: Falling or dizzy when standing up, Sexual problems?, Trouble eating well?, Teeth or denture problems? and Problems using the telephone? and sometimes: Tiredness or fatigue? Have you fallen 2 or more times in the past year?: No Are you afraid of falling?: No Are you a smoker?: no During the past 4 weeks, how many drinks of wine, beer, or other alcoholic beverages did you have?: no alcohol at all Do you exercise for about 20 minutes 3 or more times a week?: no, I usually do not exercise this much Have you been given information to help with the following?: no: Hazards in your house that might hurt you? and no: Keeping track of your medications? How often do you have trouble taking medicines the way you have been told to take them?: I always take medicine as prescribed How confident are you that you can control & manage most of your health problems?: very confident What is your race?: White Mini Mental State Exam (MMSE) Orientation What is the (year) (season) (date) (day) (month)?: year (2024), season (Fall), date (04/11/25), day (Friday) and month (Nov.) Where are we (state) (county) (town or city) (hospital) (floor)?: state ([facility]), county ([place]), town or city ([place]) and hospital/clinic [place] Score Score: 9 Activity of Daily Living Bathing - sponge bath, tub bath or shower: receives no assistance (gets in/out by self, if usual bathing means Dressing - getting clothes from closets & drawers, including inner/outer garments & fasteners.: gets clothes & gets completely dressed without help Toileting - going to the 'toilet room' for urine/bowel elimination & cleaning self/arranging clothes: goes to toilet room, cleans self, arranges clothes without help Transfer: moves in & out of bed and chair without help (may use support object) Continence: has occasional 'accidents' Feeding: feeds self without help Total Score: 0 Information obtained from: patient Using telephone: independent Traveling: independent Shopping: independent Preparing meals: independent Housework: independent Taking medicine: independent Managing money: independent PHQ-9 Over the last 2 weeks, how often have you been bothered by any of the following problems? 1. Little interest or pleasure in doing things: not at all 2. Feeling down, depressed, or hopeless: not at all 3. Trouble falling or staying asleep, or sleeping too much: several days 4. Feeling tired or having little energy: several days 5. Poor appetite or overeating: not at all 6. Feeling bad about yourself - or that you are a failure or have let yourself or your family down: not at all 7. Trouble concentrating on things, such as reading the newspaper or watching television: not at all 8. Moving or speaking so slowly that other people could have noticed. Or the opposite - being so fidgety or restless that you have been moving around a lot more than usual: not at all 9. Thoughts that you would be better off or of hurting yourself in some way: not at all Total score: 2 Depression Screening Interpretation: Negative Depression Screening Done: Yes 01247 - PHQ-9 Billing: Yes Source: Developed by Drs. Jay Mann, Stefanie Hawkins, Delonte Nichols and colleagues, with an educational porfirio from [employer]. Physical Exam Vital Signs: Last Vital Signs Temp 97.8 F 04/11/25 10:30 Pulse 73 04/11/25 10:30 Resp 16 04/11/25 10:30 BP 118/70 04/11/25 10:30 Pulse Ox 98 04/11/25 10:30 Oxygen Delivery Method Room Air 04/11/25 10:30 BMI result Body Mass Index 25.5 Assessment & Plan Assessment & Plan (1) Hypertension: Code(s): I10 - Essential (primary) hypertension Qualifiers: Hypertension type: essential hypertension Qualified Code(s): I10 - Essential (primary) hypertension Plan: Blood pressure within normal limits currently amlodipine and lisinopril (2) Hyperlipidemia: Code(s): E78.5 - Hyperlipidemia, unspecified Qualifiers: Hyperlipidemia type: pure hypercholesterolemia Qualified Code(s): E78.00 - Pure hypercholesterolemia, unspecified Plan: Currently taking atorvastatin 10 mg daily (3) Hypothyroidism: Code(s): E03.9 - Hypothyroidism, unspecified Qualifiers: Hypothyroidism type: acquired Qualified Code(s): E03.9 - Hypothyroidism, unspecified Plan: On levothyroxine 150 mcg daily (4) Osteopenia of lumbar spine: Code(s): M85.88 - Other specified disorders of bone density and structure, other site Plan: Currently on calcium carbonate 600 mg taken twice a day and vitamin D3 2000 units daily (5) History of uterine cancer: Code(s): Z85.42 - Personal history of malignant neoplasm of other parts of uterus Plan: Followed by oncology, currently on Keytruda (6) Encounter for subsequent annual wellness visit (AWV) in Medicare patient: Code(s): Z00.00 - Encounter for general adult medical examination without abnormal findings Plan: Medical wellness checklist reviewed, discussed with patient and updated. Up-to-date with all her vaccinations and up-to-date with all screenings MOLST and healthcare proxy form already completed Quality Reporting (2019) Depression/Bipolar (159/160/161/177) PHQ-9: Total score: 2 Coding Level of Care Code Medicare Subsequent (G0439) Diagnoses Essential hypertension I10 Hypertension type: essential hypertension Pure hypercholesterolemia E78.00 Hyperlipidemia type: pure hypercholesterolemia Acquired hypothyroidism E03.9 Hypothyroidism type: acquired Osteopenia of lumbar spine M85.88 History of uterine cancer Z85.42 Encounter for subsequent annual wellness visit (AWV) in Medicare patient Z00.00 CPT Codes Advance Care Planning - Advance Care Planning discussion: On file, no changes ([id number]) Advance Care Planning - Time spent: 1-15 minutes, on File ([id number]) Additional Codes PHQ-9 - 12906 - PHQ-9 Billing: Yes ([id number]) Advance Care Planning Advance Care Planning discussion: On file, no changes Date of discussion: 04/11/25 Who was present: Patient Forms completed: Health Care Proxy and MOLST Time spent: 1-15 minutes, on File Actual minutes spent: 1
== END 2025-04-11 11:27 | disposition home or self-care (01) ==
LOC: HO.HMCC 08:59
PROVIDERS: PCP Internal Medicine; Visit Provider Internal Medicine
DX: Z00.00 Encounter for general adult medical examination without abnormal findings (principal); I10 Essential (primary) hypertension; E78.00 Pure hypercholesterolemia, unspecified; E03.9 Hypothyroidism, unspecified; M85.88 Other specified disorders of bone density and structure, other site; Z85.42 Personal history of malignant neoplasm of other parts of uterus

== ENCOUNTER → 2025-04-11 08:58 | Outpatient (BNVA) | payer MEDICARE, SELFPAY | PROVIDERS: PCP Internal Medicine; Visit Provider Internal Medicine | DX: Z13.31 Encounter for screening for depression (principal) | CPT/HCPCS: 96127 ==